=== PATIENT | male | born 1960 | race Asian ===

== ENCOUNTER 2021-07-13 17:12 | Outpatient (CLI) | payer BC, OTHER, SELFPAY ==
--- NOTE | ~2021-07-13 | US_ITS ---
EXAMINATION: US renal BI DATE: 07/13/2021 17:33 INDICATION: Unspecified abdominal pain. TECHNIQUE: Multiple ultrasound grayscale images of the kidneys were obtained. COMPARISON: Ultrasound 03/20/2018 FINDINGS: The right kidney measures 11.3 x 6.2 x 6.0 cm. The left kidney measures 10.2 x 5.7 x 5.2 cm. The kidn eys demonstrate normal parenchymal echogenicity. There is no hydronephrosis. The bladder is normal. IMPRESSION: 1. Normal kidneys. No hydronephrosis. Reviewed, dictated and finalized at location A.
== END 2021-07-13 17:13 | disposition home or self-care (01) ==
LOC: ANHIMG 17:14
PROVIDERS: PCP Internal Medicine; Visit Provider Internal Medicine
DX: R10.9 Unspecified abdominal pain (principal)
CPT/HCPCS: 76775

== ENCOUNTER 2021-09-05 08:35 | Outpatient (CLI) | payer BC, OTHER, SELFPAY ==
--- NOTE | ~2021-09-05 | XR_ITS ---
EXAMINATION: [id number] INDICATION: Bilateral rib pain after fall TECHNIQUE: A frontal view of the chest and 3 views of the bilateral ribs were obtained. COMPARISON: None. FINDINGS: There are questionable nondisplaced fractures of the anterior right ninth and 10th ribs. No displaced rib fracture is identified. The lungs are free of acute opacities. There is no pleural eff usion or pneumothorax. The cardiomediastinal silhouette is normal. IMPRESSION: 1. Possible nondisplaced anterior fractures of the right ninth and 10th ribs. Reviewed, dictated and finalized at location A.
== END 2021-09-05 08:36 | disposition home or self-care (01) ==
LOC: ANHIMG 08:40
PROVIDERS: PCP Internal Medicine; Visit Provider Internal Medicine
DX: R07.81 Pleurodynia (principal)
CPT/HCPCS: 71111

== ENCOUNTER 2021-09-27 07:30 | Outpatient (CLI) | payer BC, OTHER, SELFPAY ==
--- NOTE | 2021-09-27 07:56 | ECHO_ITS ---
Patient Info Name: Gilbert Dhillon Age: 61 years : 1960 Gender: Male Ht: 66 in Wt: 162 lbs BSA: 1.86 m2 HR: 77 bpm BP: 140 / 74 mmHg Heart Rhythm: Sinus Rhythm Exam Date: 09/27/2021 9:14 AM Exam Location: [facility] Patient Status: Outpatient Admit Date: 09/27/2021 Staff Ordering Physician: Hi Baum DO Offset Assistant Press Operator: Kelli Rod RDCS Attending Provider: Hi Baum DO Referring Physician: Sarika GRACE; Exam Type: CA echo doppler color flow Study Info Indications R55 - Syncope and collapse Complete two-dimensional, color flow and Doppler transthoracic echocardiogram is performed. Summary 1. Complete two-dimensional, color flow and Doppler transthoracic echocardiogram is performed. 2. Left ventricular chamber dimension is normal. 3. Left ventricular systolic function is normal, estimated at 65-70%. 4. There is no increased left ventricular wall thickness. 5. Left ventricular septal wall motion is normal. 6. The left ventricular diastolic function is grade I diastolic dysfunction. 7. There is mild tricuspid valve regurgitation. 8. Mild pulmonary hypertension, estimated pulmonary arterial systolic pressure is 42 mmHg. 9. There is mild pulmonic regurgitation. Left Ventricle Left ventricular chamber dimension is normal. Left ventricular systolic function is normal, estimated at 65-70%. There is no increased left ventricular wall thickness. Left ventricular septal wall motion is normal. The left ventricular diastolic function is grade I diastolic dysfunction. Right Ventricle Right ventricular chamber dimension is normal. Right ventricular systolic function is normal. Left Atria Left atrial chamber dimension is normal. Right Atria Right atrial chamber dimension is normal. Atrial Septum Intact interatrial septum visualized by color flow imaging. Aortic Valve The aortic valve is trileaflet. There is mild aortic valve sclerosis. There is no aortic valve stenosis. There is trace aortic valve regurgitation. Pulmonic Valve The pulmonic valve is normal. There is no pulmonic valve stenosis. There is mild pulmonic regurgitation. Mitral Valve The mitral valve has thickened leaflets. There is no mitral valve stenosis. There is trace mitral valve regurgitation. Tricuspid Valve The tricuspid valve leaflets are normal. There is no significant tricuspid valve stenosis. There is mild tricuspid valve regurgitation. Mild pulmonary hypertension, estimated pulmonary arterial systolic pressure is 42 mmHg. Pericardium/Pleural The pericardium appears normal. There is no pericardial effusion. Inferior Vena Cava Dilated inferior vena cava with <50% collapse upon inspiration consistent with elevated right atrial pressure, 15 mmHg. Aorta The aortic root size at the sinus of Valsalva is normal. Left Ventricular Outflow Tract Name Value Normal LVOT 2D LVOT Diameter 2.0 cm LVOT Doppler LVOT Peak Gradient 4 mmHg LVOT Mean Gradient 2 mmHg LVOT VTI 21 cm LV
== END 2021-09-27 07:31 | disposition home or self-care (01) ==
PROVIDERS: PCP Internal Medicine; Visit Provider Internal Medicine
DX: R55 Syncope and collapse (principal); I07.1 Rheumatic tricuspid insufficiency; I27.20 Pulmonary hypertension, unspecified
CPT/HCPCS: 93225; 93226; 93306

== ENCOUNTER 2022-01-07 10:17 | Emergency (ER) | payer BC, OTHER, SELFPAY ==
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
[2022-01-07 10:27] VITALS: BP 158/82; PULSE 77; RESP 18; TEMP 36.6; O2SAT 100
== END 2022-01-07 10:41 | disposition home or self-care (01) ==
PROVIDERS: Emergency Provider Nurse Practitioner Family; PCP Internal Medicine
DX: K08.89 Other specified disorders of teeth and supporting structures (principal); I10 Essential (primary) hypertension; E03.9 Hypothyroidism, unspecified; G47.30 Sleep apnea, unspecified; E11.9 Type 2 diabetes mellitus without complications; Z79.82 Long term (current) use of aspirin
CPT/HCPCS: 99213; G0463

== ENCOUNTER 2022-02-01 08:06 | Outpatient (CLI) | payer BC, OTHER, SELFPAY ==
--- NOTE | ~2022-02-01 | US_ITS ---
EXAMINATION: US arterial ankle brachial ind DATE: 02/01/2022 08:30 INDICATION: Pallor at the lower extremities. Diabetes and hypercholesterolemia. TECHNIQUE: Segmental pressures and plethysmographic and Doppler waveforms of the brachial and lower e xtremity arteries were obtained. COMPARISON: None. FINDINGS: Right and left brachial artery pressures of 128 mm Hg and 127 mm Hg, respectively, are concordant (no rmal difference <= 30 mmHg). The right ankle-brachial index (JAMIL) is 1.23 (normal >= 0.9-1.0). The right great toe-brachial index (TBI) is 0.73 (normal >= 0.65). Arterial Doppler waveforms are biphasic with brisk systolic upstrokes at both right posterior tibial and dorsalis pedis arteries. The left JAMIL is 1.23. The left TBI is 0.63. Arterial Doppler waveforms are biphasic with brisk systol ic upstrokes at both the left posterior tibial and dorsalis pedis arteries. IMPRESSION: 1. No significant arterial occlusive disease to either lower limb with normal bilateral ABIs and TBIs Reviewed, dictated and finalized at location A. IMPRESSION: 1. No significant arterial occlusive disease to either lower limb with normal b ilateral ABIs and TBIs
== END 2022-02-01 08:07 | disposition home or self-care (01) ==
PROVIDERS: PCP Internal Medicine; Visit Provider Nurse Practitioner
DX: R23.1 Pallor (principal)
CPT/HCPCS: 93922

== ENCOUNTER 2022-02-17 08:03 | Outpatient (CLI) | payer BC, OTHER, SELFPAY ==
--- NOTE | 2022-03-02 22:56 | WPDSLEEPSTUD ---
Sleep Study Date of Study: 02/17/22 Ordering Provider: Yareli Ackerman MD Interpreting Physician: Zakiya Navarro DO Sleep Study Type: CPAP Titration Height: 1.7 m Weight: 75.296 kg Body Mass Index: 25.9 Neck Circumference (inches): 17 Mentor: 10 Reason for Sleep Study Previously diagnosed BOGDAN. Current has CPAP but difficult to tolerate. Sleep History The patient is a 61-year-old male with hypertension, hyperlipidemia, hypothyroidism, diabetes, Sjogren's syndrome, Raynaud's, and BOGDAN on CPAP that had a sleep study ordered by his spray maker. The patient rarely awakens from sleep short of breath. He denies awakening at night with heartburn, belching or. He occasionally snores loud enough others complaint. He rarely has trouble sleeping when he has a cold. He denies waking gasping for air the night. He occasionally has breathing problems at night observed by himself or others. He rarely sweats excessively at night. He rarely has heart palpitations or irregular heartbeats during the night. He rarely falls asleep during the day but never while driving. He occasionally has trouble at school or work due to sleepiness. He denies sleep paralysis and cataplexy. He occasionally experiences vivid dream like scenes upon awakening or asleep. He denies having nightmares. He occasionally remembers his dreams. He occasionally has thoughts racing through his mind. He rarely feels sad, depressed or anxious. He denies having muscular tension. He denies noticing parts of his body jerks. He denies taking during night. He denies having crawling aching feeling in his legs. He rarely has leg pain during the night. He rarely grinds his teeth while sleep and never awakens with morning jaw pain. He is occasionally bothered by pain during the day rarely awakened by pain during the. He denies waking feeling stiff in the. He denies waking with sore or achy muscles. He denies waking up with pain in the neck spine and other joints. He goes to bed at 9:00 p.m. on both weekdays and weekends. He takes about a minute to fall asleep. He wakes up twice throughout the night. When he awakens, he tries to fall back asleep. If he can't, he will read. If it is past 2:00 a.m., he will either stay up or go to work. He wakes up between 3-4 a.m. on the weekdays and between 4-5 am on the weekends. He typically gets 5-6 hours of sleep per night. He does not stay in bed after waking up morning. He currently lives with his . He does not consume any caffeinated beverages within 2 hours of bedtime. He does not engage in physical exercise bedtime. He will watch television before falling asleep. He does not take naps in the afternoon or the evening. He drinks 24 oz of caffeinated soda per day. He denies tobacco, alcohol and recreational drug use. [facility] Past Medical History Medical History Cyst Essential hypertension Hyperlipidemia Hypersomnolence disorder, persistent Hypothyroidism (acquired) BOGDAN on CPAP Skin lesions Type 2 diabetes mellitus with hyperglycemia Family History Family History Mother Family history of osteoporosis Hypertension Family history of Alzheimer's disease Family history of diabetes mellitus in first degree relative Cerebrovascular accident Patient's mother is Father Hypertension Family history of congestive heart failure Sibling Patient's sister is in good health Social History Social History Smoking status: Never smoker Second hand tobacco smoke exposure: No Alcohol intake: never Substance use: never Substance use type: does not use Medications Home Medications Medication Instructions Recorded Confirmed Type blood sugar diagnostic #10 each 12/27/19 01/11/22 History pen needle, diabetic 31 gauge x #500
[2022-03-03 12:52] VITALS: BMI 25.9
== END 2022-02-18 05:40 | disposition home or self-care (01) ==
LOC: ANHCSM 08:51
PROVIDERS: PCP Internal Medicine; Visit Provider Internal Medicine Critical Care Medicine
DX: G47.19 Other hypersomnia (principal); G47.33 Obstructive sleep apnea (adult) (pediatric)
CPT/HCPCS: 95811

== ENCOUNTER 2022-09-13 00:22 | Day surgery (SDC) | payer BC, OTHER, SELFPAY ==
[2022-09-04 08:35] VITALS: BMI 28.5
--- NOTE | 2022-09-12 17:06 | PM.HPGS ---
History of Present Illness History of Present Illness Consent: Risks, benefits, and alternatives have been discussed and questions answered. Patient agrees to proceed with procedure. Chief complaint: GERD Narrative: Gilbert Dhillon is a 62 year old male referred for investigation of dysphagia. He often feels as though it is difficult to swallow. Even when he does a dry swallow it is gives a sensation that there is something in the way. On a few occasions he has had actual food get caught in his lower chest. He has noticed also discomfort in the right side of his neck that goes up towards his ear. He denies heartburn. 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 BOGDAN on CPAP Osteopenia Primary osteoarthritis of both knees Sjogrens syndrome Skin lesions Testicular hypofunction Type 2 diabetes mellitus with hyperglycemia Surgical History Surgical History History of thyroidectomy with radioactive iodine Family History Family History Mother Family history of osteoporosis Hypertension Family history of Alzheimer's disease Family history of diabetes mellitus in first degree relative Cerebrovascular accident Patient's mother is Father Hypertension Family history of congestive heart failure Sibling Patient's sister is in good health Social History Social History Smoking status: Never smoker Second hand tobacco smoke exposure: No Alcohol intake: never Substance use: never Substance use type: does not use Living arrangements: with family Spiritual care concerns: No Meds Home Medications and Allergies Home Medications Medication Instructions Recorded Confirmed Type blood sugar diagnostic (Accu-Chek #10 ea 12/27/19 09/04/22 History Dee Plus test strips) pen needle, diabetic 31 gauge x #500 ea 12/10/20 09/04/22 Rx 5/16 Dexcom G6 Sensor (blood-glucose #3 ea 02/10/21 09/04/22 Rx sensor) ibuprofen 600 mg tablet 600 mg PO Q6H PRN Pain 07/04/21 09/13/22 History Dexcom G6 Transmitter #1 ea 11/15/21 09/04/22 Rx (blood-glucose transmitter) losartan 100 mg tablet See Rx Instructions .Route 03/13/22 09/13/22 Rx .COMPLEX #90 tabs Jardiance 25 mg tablet 25 mg PO QAM 90 days #90 tabs 04/03/22 09/13/22 Rx (empagliflozin) dextroamphetamine sulfate 10 mg 10 mg PO DAILY #30 tabs 04/21/22 09/13/22 Rx tablet modafinil 200 mg tablet 200 mg PO QAM 1 month #30 tabs 04/21/22 09/13/22 Rx sildenafil (pulm.hypertension) 20 20 mg PO TID 04/21/22 09/13/22 History mg tablet hydrochlorothiazide 12.5 mg tablet 12.5 mg PO DAILY #90 tabs 05/16/22 09/13/22 Rx metformin 500 mg tablet 500 mg PO BID 90 days #180 tabs 05/22/22 09/13/22 Rx aspirin 81 mg capsule 81 mg PO DAILY 06/08/22 09/13/22 History insulin aspart U-100 100 unit/mL 5 - 7 unit subcut TIDWMEAL 06/08/22 09/13/22 History (3 mL) subcutaneous pen (Novolog Flexpen U-100 Insulin aspart) levothyroxine 125 mcg tablet See Rx Instructions .Route 07/19/22 09/13/22 Rx .COMPLEX #90 tabs eszopiclone 3 mg tablet 3 mg PO QHS #90 tabs 07/26/22 09/13/22 Rx testosterone 20.25 mg/1.25 gram 1 pump topical DAILY #150 grams 07/26/22 09/13/22 Rx (1.62 %) transdermal gel pump tirzepatide 5 mg/0.5 mL 5 mg (0.5 mL) subcut WEEKLY 84 08/02/22 09/13/22
[2022-09-13 07:44] VITALS: BP 116/72; PULSE 72; RESP 18; TEMP 36.5; O2SAT 98
[2022-09-13 07:44] LABS: Glucose Point of Care 104 mg/dl (65-105)
[2022-09-13] MEDS: LACTATED RINGERS 1,000 ML 150 ML IV CONT (07:52)
--- NOTE | 2022-09-13 07:59 | WPDANESEPPF ---
Anes - Initial Pre Proc Eval Procedure: Operation Date: 09/13/22 09:00 Proposed Procedures p Esophagogastroduodenoscopy - Bertrand Gutiérrez MD Date/Time: 09/13/22 07:59 Surgeon: Bertrand Gutiérrez MD Pre Op Diagnosis: GERD Patient Data Age: 62 Gender: M Height: 1.65 m Weight: 81.6 kg Last Vital Signs Temp 97.7 F 09/13/22 07:44 Pulse 72 09/13/22 07:44 Resp 18 09/13/22 07:44 BP 116/72 09/13/22 07:44 Pulse Ox 98 09/13/22 07:44 O2 Del Method Room Air 09/13/22 07:44 Allergies Allergy/AdvReac Type Severity Reaction Status Date / Time No Known Allergies Allergy Verified 09/13/22 07:43 Home Medications Medication Instructions Recorded Confirmed Type blood sugar diagnostic (Accu-Chek #10 ea 12/27/19 09/04/22 History Dee Plus test strips) pen needle, diabetic 31 gauge x #500 ea 12/10/20 09/04/22 Rx 5/16 Dexcom G6 Sensor (blood-glucose #3 ea 02/10/21 09/04/22 Rx sensor) ibuprofen 600 mg tablet 600 mg PO Q6H PRN Pain 07/04/21 09/13/22 History Dexcom G6 Transmitter #1 ea 11/15/21 09/04/22 Rx (blood-glucose transmitter) losartan 100 mg tablet See Rx Instructions .Route 03/13/22 09/13/22 Rx .COMPLEX #90 tabs Jardiance 25 mg tablet 25 mg PO QAM 90 days #90 tabs 04/03/22 09/13/22 Rx (empagliflozin) dextroamphetamine sulfate 10 mg 10 mg PO DAILY #30 tabs 04/21/22 09/13/22 Rx tablet modafinil 200 mg tablet 200 mg PO QAM 1 month #30 tabs 04/21/22 09/13/22 Rx sildenafil (pulm.hypertension) 20 20 mg PO TID 04/21/22 09/13/22 History mg tablet hydrochlorothiazide 12.5 mg tablet 12.5 mg PO DAILY #90 tabs 05/16/22 09/13/22 Rx metformin 500 mg tablet 500 mg PO BID 90 days #180 tabs 05/22/22 09/13/22 Rx aspirin 81 mg capsule 81 mg PO DAILY 06/08/22 09/13/22 History insulin aspart U-100 100 unit/mL 5 - 7 unit subcut TIDWMEAL 06/08/22 09/13/22 History (3 mL) subcutaneous pen (Novolog Flexpen U-100 Insulin aspart) levothyroxine 125 mcg tablet See Rx Instructions .Route 07/19/22 09/13/22 Rx .COMPLEX #90 tabs eszopiclone 3 mg tablet 3 mg PO QHS #90 tabs 07/26/22 09/13/22 Rx testosterone 20.25 mg/1.25 gram 1 pump topical DAILY #150 grams 07/26/22 09/13/22 Rx (1.62 %) transdermal gel pump tirzepatide 5 mg/0.5 mL 5 mg (0.5 mL) subcut WEEKLY 84 08/02/22 09/13/22 Rx subcutaneous pen injector days #6 mL (Mounjaro) atorvastatin 40 mg tablet 40 mg PO QPM #90 tabs 08/30/22 09/13/22 Rx insulin degludec 200 unit/mL (3 18 unit (0.09 mL) subcut QAM 90 08/31/22 09/13/22 Rx mL) subcutaneous pen (Tresiba days #9 mL FlexTouch U-200 insulin) Laboratory Tests 09/13/22 07:40 POC Capillary Glucose 104 mg/dl mg/dl (65-105) Patient hx anesthesia problems: none Family hx anesthesia problems: none Results Review: All pre-operative results and documents have been reviewed as part of the pre-operative evaluation. 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
[2022-09-13 09:20] VITALS: BP 94/64; PULSE 75; RESP 14; O2SAT 96
[2022-09-13 09:30] VITALS: BP 116/74; PULSE 81; RESP 23; O2SAT 98
--- NOTE | 2022-09-13 09:37 | SUR.PHASEII ---
Patient did not want to be poked for our glucose bingo checker, pt has a implanted reader and preferred to use that. blood sugar was 92
[2022-09-13 09:40] VITALS: BP 123/71; PULSE 75; RESP 14; O2SAT 98
[2022-09-13] MEDS: BENZOCAINE (*SP) 60 ML SPRAY CAN (HURRICAINE) 1 SPRAY MUCOUS MEM (11:34)
== END 2022-09-13 09:48 | disposition home or self-care (01) ==
PROVIDERS: PCP Internal Medicine; Visit Provider Internal Medicine Gastroenterology
PROC: 0DJ08ZZ Inspection of Upper Intestinal Tract, Via Natural or Artificial Opening Endoscopic (ICD-10-PCS; CPT 43235; principal; 2022-09-13 09:00)
DX: K21.00 Gastro-esophageal reflux disease with esophagitis, without bleeding (principal); I10 Essential (primary) hypertension; E11.9 Type 2 diabetes mellitus without complications; E89.0 Postprocedural hypothyroidism; K21.9 Gastro-esophageal reflux disease without esophagitis; E78.5 Hyperlipidemia, unspecified; G47.33 Obstructive sleep apnea (adult) (pediatric); M35.00 Sjogren syndrome, unspecified; Z79.84 Long term (current) use of oral hypoglycemic drugs; Z79.82 Long term (current) use of aspirin; Z79.4 Long term (current) use of insulin; Z79.899 Other long term (current) drug therapy
CPT/HCPCS: 43239; 82948; 87081; 88305; J2704; J7120

== ENCOUNTER 2023-05-12 16:48 | Emergency (ER) | payer BC, OTHER, SELFPAY ==
--- NOTE | ~2023-05-12 | XR_ITS ---
EXAMINATION: XR abdomen obstructive series DATE: 05/12/2023 17:17 INDICATION: Diarrhea and bloating TECHNIQUE: Frontal supine and upright views of the abdomen were obtained. COMPARISON: None. FINDINGS: Moderate amount of stool scattered throughout the colon. No dilated gas-filled loops of bowel to sugg est obstruction. No free intraperitoneal gas. Lung bases are clear. Mild lumbar dextrocurvature. IMPRESSION: 1. No free intraperitoneal gas or dilated gas-filled loops of bowel to suggest obstruction. Reviewed, dictated and finalized at location A.
--- NOTE | 2023-05-12 16:52 | ED.NAVMDI ---
HPI - Nausea/Vomiting/Diarrhea General Chief complaint: Nausea/Vomiting/Diarrhea Stated complaint: Diarrhea Time Seen by Provider: 05/12/23 16:51 Source: patient Mode of arrival: ambulatory Limitations: no limitations History of Present Illness HPI Narrative: Gilbert is a 63-year-old male patient presenting to clinic today with complaints of diarrhea x6 days. He reports he started taking Celebrex and Rosuvastatin around the same time the diarrhea started. Has been having 4-5 stools per day. He reports he is feeling a fullness in his lower abdomen and feeling as though when he is having bowel movements he is not fully empty. Has tightness/discomfort to the lower abdomen. No fever, chills, body aches, GERD symptoms, urinary symptoms, or blood in his stool. Denies history of diverticulitis, irritable bowel syndrome, Crohns, or colitis. No abdominal surgical history. Related Data Home Medications Medication Instructions Recorded Confirmed sildenafil (pulm.hypertension) 20 20 mg PO TID 04/21/22 05/12/23 mg tablet aspirin 81 mg capsule 81 mg PO DAILY 06/08/22 05/12/23 insulin aspart U-100 100 unit/mL 5 unit subcut TIDWMEAL 12/27/22 05/12/23 (3 mL) subcutaneous pen (Novolog FlexPen U-100 Insulin aspart) atorvastatin 40 mg tablet 40 mg PO DAILY 05/12/23 05/12/23 blood-glucose sensor (Dexcom G7 05/12/23 05/12/23 Sensor device) Allergies Allergy/AdvReac Type Severity Reaction Status Date / Time No Known Allergies Allergy Verified 05/12/23 16:51 Review of Systems Review of Systems: Pertinent positives per HPI. Patient denies any fever, chills, rash, headache, visual changes, dizziness, cough, runny nose, sore throat, shortness of breath, chest pain, palpitations, nausea, vomiting, constipation, abdominal pain, or any urinary issues. 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 BOGDAN on CPAP Osteopenia Primary osteoarthritis of both knees Sjogrens syndrome Skin lesions Testicular hypofunction Type 2 diabetes mellitus with hyperglycemia Surgical History Surgical History History of thyroidectomy with radioactive iodine Family History Family History Mother Family history of osteoporosis Hypertension Family history of Alzheimer's disease Family history of diabetes mellitus in first degree relative Cerebrovascular accident Patient's mother is Father Hypertension Family history of congestive heart failure Sibling Patient's sister is in good health Social History Social History Smoking status: Never smoker Second hand tobacco smoke exposure: No Alcohol intake: never Substance use: never Substance use type: does not use Lack of Transportation: No Lack of Food: Never True Current Housing: I Have Housing Concerned About Future Housing: No Difficulty Paying Gas/Electric Bills: No Difficulty Paying for Meds: No Currently Unemployed: No Education: Associate Degree Difficulty w/ Childcare or Family Care: No Living arrangements: with family Spiritual care concerns: No Comments At the time of my signature, I reviewed and agree with the nursing past medical, surgical, social, and family history. There is no relevant family history pertinent to the patient complaint. Exam Narrative: General: Well-developed, well nourished, in no apparent distress.
[2023-05-12 17:00] VITALS: BP 147/65; PULSE 81; RESP 16; TEMP 36.4; O2SAT 100
== END 2023-05-12 17:26 | disposition home or self-care (01) ==
PROVIDERS: Emergency Provider Nurse Practitioner Family; PCP Nurse Practitioner
DX: R19.7 Diarrhea, unspecified (principal); I10 Essential (primary) hypertension; K21.9 Gastro-esophageal reflux disease without esophagitis; G47.33 Obstructive sleep apnea (adult) (pediatric); M85.80 Other specified disorders of bone density and structure, unspecified site; M35.00 Sjogren syndrome, unspecified; E11.9 Type 2 diabetes mellitus without complications; E03.9 Hypothyroidism, unspecified; E05.00 Thyrotoxicosis with diffuse goiter without thyrotoxic crisis or storm; Z79.82 Long term (current) use of aspirin; Z79.4 Long term (current) use of insulin
CPT/HCPCS: 74019; 99213; G0463

== ENCOUNTER 2023-07-26 14:23 | Outpatient (NON) | payer BC, OTHER, SELFPAY | END 2023-07-26 14:24 | disposition home or self-care (01) | LOC: ANHLAB 07-27 14:25 | PROVIDERS: PCP Nurse Practitioner Family; Visit Provider Nurse Practitioner | DX: D48.5 Neoplasm of uncertain behavior of skin (principal) | CPT/HCPCS: 88305 ==

== ENCOUNTER 2023-12-29 08:37 | Outpatient (CLI) | payer BC, OTHER, SELFPAY ==
[2023-12-29 09:12] LABS: Basophils Percent Auto 0.3 % (0.2-1.2); Eosinophils Absolute Auto 0.3 K/mm3 (0-0.3); Eosinophils Percent Auto 5.3 % (0-4.4); Hematocrit 46.3 % (42.0-52.0); Immature Granulocyte Absolute 0.03 K/mm3 (0.00-0.031); Immature Granulocyte Percent A 0.5 % (0-0.5); Lymphocytes Absolute Auto 1.93 K/mm3 (0.9-3.2); Lymphocytes Percent Auto 33.1 % (18.3-44.2); Mean Corpuscular HGB Conc 32.4 g/dl (32-36); Mean Corpuscular Hemoglobin 30.5 pg (26-34); Mean Corpuscular Volume 94.3 fl (80-100); Mean Platelet Volume 8.7 fl (7.4-10.4); Monocytes Absolute Auto 0.5 K/mm3 (0.1-0.6); Monocytes Percent Auto 8.6 % (2.6-8.5); Neutrophils Percent Auto 52.2 % (45.5-73.1); Platelet Count Result 219 k/mm3 (150-375); Red Blood Count 4.91 M/mm3 (4.6-6.20); Red Cell Distribution Width 12.4 % (11.5-14.5); White Blood Count 5.8 K/mm3 (4.5-10.0)
[2023-12-29 09:22] LABS: Alanine Aminotransferase 31 U/L (6-50); Albumin Level 4.3 g/dL (3.5-5.1); Alkaline Phosphatase 60 U/L (38-126); Anion Gap 5 mmol/L (8-16); Aspartate Amino Transferase 36 U/L (17-59); Bilirubin,Total 0.7 mg/dL (0.2-1.3); Blood Urea Nitrogen 21 mg/dL (9-20); Calcium 9.1 mg/dL (8.4-10.2); Carbon Dioxide 32 mmol/L (22-30); Chloride 100 mmol/L (98-107); Cholesterol 138 mg/dL (0-200); Estimated Glomerular Filt Rate > 60; Glucose 78 mg/dL (65-110); HDL Direct 44 mg/dL; Potassium 4.1 mmol/L (3.4-5.0); Sodium 137 mmol/L (137-145); Triglycerides 99 mg/dL (<150)
[2023-12-29 09:25] LABS: Iron 140 ug/dL (49-181)
[2023-12-29 09:34] LABS: LDL Cholesterol Direct 76 mg/dL
[2023-12-29 09:35] LABS: Percent Iron Saturation 51 % (20-50)
[2023-12-29 09:52] LABS: Prostate Specific Antigen 1.3 ng/mL (< OR = 4.0)
== END 2023-12-29 08:38 | disposition home or self-care (01) ==
LOC: ANHLAB 08:40
PROVIDERS: PCP Nurse Practitioner Family; Visit Provider Nurse Practitioner Family
DX: D64.9 Anemia, unspecified (principal); E78.5 Hyperlipidemia, unspecified; I10 Essential (primary) hypertension; E11.42 Type 2 diabetes mellitus with diabetic polyneuropathy; R53.82 Chronic fatigue, unspecified; Z12.11 Encounter for screening for malignant neoplasm of colon; G47.00 Insomnia, unspecified
CPT/HCPCS: 36415; 80053; 80061; 82728; 83540; 83550; 84153; 85025; G0103

== ENCOUNTER 2024-02-13 17:04 | Emergency (ER) | payer BC, OTHER, SELFPAY ==
[2024-02-13 17:16] VITALS: BP 152/64; PULSE 65; RESP 16; TEMP 36.4; O2SAT 100
--- NOTE | 2024-02-13 17:55 | ED.DENTAL ---
HPI - Dental/Oral General Chief complaint: Dental/Oral Stated complaint: dental pain Time Seen by Provider: 02/13/24 17:47 Source: patient and RN notes reviewed Mode of arrival: ambulatory Limitations: no limitations History of Present Illness HPI Narrative: Patient presents today complaining of right upper dental pain since yesterday. Currently rates his pain 5/10 and has been taking ibuprofen with mild relief. States this affected tooth already has a crown on it and he has an appointment with his dentist in 10 days. Related Data Home Medications Medication Instructions Recorded Confirmed aspirin 81 mg capsule 81 mg PO DAILY 06/08/22 02/13/24 blood-glucose sensor (Dexcom G7 05/12/23 12/04/23 Sensor device) cholecalciferol (vitamin D3) 25 25 mcg PO DAILY 09/12/23 02/13/24 mcg (1,000 unit) tablet multivitamin (Daily Multi-Vitamin 1 tablet PO DAILY 09/12/23 02/13/24 tablet) vitamin B complex (B 1 tablet PO DAILY 09/12/23 02/13/24 Complex-Vitamin B12 tablet) calcium carbonate 600 mg calcium 600 mg PO DAILY 09/27/23 02/13/24 (1,500 mg) tablet (Calcium) tamsulosin 0.4 mg capsule (Flomax) 0.4 mg PO DAILY 09/27/23 02/13/24 Allergies Allergy/AdvReac Type Severity Reaction Status Date / Time No Known Allergies Allergy Verified 02/13/24 17:22 Review of Systems Review of Systems: CONSTITUTIONAL: Denies body aches, fever, chills, or sweats. EYES: Denies visual changes, redness, or discharge. ENT: Denies rhinorrhea, congestion, sore throat, or otalgia.+ tooth pain CARDIOVASCULAR: Denies chest pain, palpitations, or edema. RESPIRATORY: Denies cough or dyspnea. GASTROINTESTINAL: Denies abdominal pain, nausea, vomiting, or diarrhea. GENITOURINARY: Denies dysuria or hematuria. SKIN: Denies rash, itching, or wounds. MUSCULOSKELETAL: Denies back pain, joint pain, or myalgia. NEUROLOGIC: Denies headache, numbness, tingling, or weakness. PSYCH: Denies depression or anxiety. 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 BOGDAN on CPAP Osteopenia Primary osteoarthritis of both knees Sjogrens syndrome Skin lesions Testicular hypofunction Type 2 diabetes mellitus with hyperglycemia Surgical History Surgical History History of thyroidectomy with radioactive iodine Family History Family History Mother Family history of osteoporosis Hypertension Family history of Alzheimer's disease Family history of diabetes mellitus in first degree relative Cerebrovascular accident Patient's mother is Father Hypertension Family history of congestive heart failure Sibling Patient's sister is in good health Social History Social History Smoking status: Never smoker Second hand tobacco smoke exposure: No Alcohol intake: never Substance use: never Substance use type: does not use Lack of Transportation: No Lack of Food: Never True Current Housing: I Have Housing Concerned About Future Housing: No Difficulty Paying Gas/Electric Bills: No Difficulty Paying for Meds: No Currently Unemployed: No Education: Associate Degree Difficulty w/ Childcare or Family Care: No Living arrangements: with family Spiritual care concerns: No Comments At time of signature, I have reviewed and agree with nursing past medical, surgical, social and family history unless otherwise noted. Pl
== END 2024-02-13 18:04 | disposition home or self-care (01) ==
PROVIDERS: Emergency Provider Nurse Practitioner; PCP Nurse Practitioner Family
DX: K08.89 Other specified disorders of teeth and supporting structures (principal); I10 Essential (primary) hypertension; K21.9 Gastro-esophageal reflux disease without esophagitis; E05.00 Thyrotoxicosis with diffuse goiter without thyrotoxic crisis or storm; G47.33 Obstructive sleep apnea (adult) (pediatric); M85.80 Other specified disorders of bone density and structure, unspecified site; M17.0 Bilateral primary osteoarthritis of knee; M35.00 Sjogren syndrome, unspecified; E11.9 Type 2 diabetes mellitus without complications; E89.1 Postprocedural hypoinsulinemia; Z79.82 Long term (current) use of aspirin
CPT/HCPCS: 99213; G0463

== ENCOUNTER 2024-05-09 15:01 | Outpatient (CLI) | payer BC, MEDICARE, OTHER, SELFPAY ==
--- NOTE | ~2024-05-09 | XR_ITS ---
XR knee LT min 4V Ordering provider: Melani Jara APRN History: . M25.562 - Pain in left knee FOR SEVERAL MONTHS, NKI . Comparison: None. FINDINGS: BONES: No acute fracture or dislocation. JOINT SPACES: Normal. SOFT TISSUES: Normal. IMPRESSION: No acute osseous abnormality left knee. Reviewed, dictated and finalized at location A.
== END 2024-05-09 15:02 | disposition home or self-care (01) ==
LOC: ANHIMG 15:07
PROVIDERS: PCP Nurse Practitioner Family; Visit Provider Nurse Practitioner Family
DX: M25.562 Pain in left knee (principal)
CPT/HCPCS: 73564

== ENCOUNTER 2024-12-29 16:12 | Outpatient (CLI) | payer BC, OTHER, SELFPAY ==
--- NOTE | ~2024-12-29 | CT_ITS ---
EXAMINATION: CT brain wo con DATE: 12/29/2024 16:39 INDICATION: Amnesia TECHNIQUE: Computed tomography (CT) of the head was performed without intravenous contrast. Sagittal and coronal reconstructions were performed. The mA was adjusted according to patient size. Iterative reconstruction technique was employed. The dose-length product was 605.33 mGy-cm. COMPARISON: None FINDINGS: No acute intracranial hemorrhage, acute infarction or abnormal extra axial fluid collection. Minimal scattered cerebral white matter and pontine hypoattenuation consistent with chronic small vessel isch emic disease. Ventricles are normal and symmetric. No mass/mass effect. The orbits, paranasal sinuses and mastoid air cells are normal. IMPRESSION: 1. Mild scattered white matter and pontine hypoattenuation consistent with chronic small vessel ische yobani disease. No acute intracranial process. Reviewed, dictated and finalized at location A. RN IMPRESSION: 1. Mild scattered white matter and pontine hypoattenuation consistent with lime supervisor terrence small vessel ischemic disease. No acute intracranial process.
--- OUTSIDE RECORDS SUMMARY | 2024-12-29 18:23 | XMS_ITS | Referral Summary ---
Author Organization [facility] Address [address] [place] [id number] Care Team Providers Care Digital Media Strategist Name Role Phone Mason Lewis MD Primary Care Provider [phone] Allergies No known active allergies Medications multivitamin tablet tablet Take according to tebd-cus-ryiazr r package directions 0 0 8 Active aspirin (ENTERIC COATED ASPIRIN) 81 mg tablet Take one by mouth one time per day 0 0 8 Active semaglutide (OZEMPIC SUBQ) Inject 1 mg under the skin once a week Sunday Active zolpidem CR (AMBIEN CR) 6.25 mg CR tabletIndicatio ns:Insomnia Take 1 tablet (6.25 mg total) by mouth nightly as needed for sleep Active insulin degludec (TRESIBA U-100 INSULIN SUBQ) Inject 20 Units under the skin daily Active modafiniL (PROVIGIL) 200 mg tablet Take 1 tablet (200 mg total) by mouth daily Active hydroCHLOROthia zide (HYDRODIURIL) 12.5 mg tablet Take 1 tablet (12.5 mg total) by mouth daily Active empagliflozin (JARDIANCE) 25 mg tabletIndicatio ns:type 2 diabetes mellitus 1 tablet (25 mg total) daily Active insulin aspart U-100 (NovoLOG) 100 unit/mL injection Inject under the skin 3 (three) times a day before meals 5-15 units Active cyanocobalamin, vitamin B-12, (VITAMIN B-12 ORAL) Take by mouth Active NIACIN ORAL Take by mouth Acti ve rosuvastatin (CRESTOR) 20 mg tablet Take 1 tablet (20 mg total) by mouth daily 3 Active tamsulosin (FLOMAX) 0.4 mg extended release capsule Take 1 capsule (0.4 mg total) by mouth nightly 4 Active levothyroxine sodium (TIROSINT) 137 mcg capsule Take 1 capsule (137 mcg total) by mouth director of residential services before breakfast 4 Active doxepin 6 mg tablet Take 1 tablet by mouth daily as needed 4 Active Active Problems Problem Noted Date Diagnosed Date Syncope and collapse 10/11/2021 Atypical chest pain 08/12/2020 Dyspnea on exertion 08/12/2020 Other fatigue 08/12/2020 Family history of premature coronary artery dise ase 08/12/2020 BOGDAN (obstructive sleep apnea) 08/12/2020 Hyperlipidemia associated with type 2 diabetes m ellitus 08/12/2020 Memory impairment 09/29/2015 Pure hypercholesterolemia 03/28/2014 Overview (02/15/2017): PURE HYPERCHOLESTEROLEM Testicular hypofunction 03/28/2014 Overview (02/15/2017): TESTICULAR HYPOFUNC NEC Postablative hypothyroidism 03/28/2014 Overview (02/15/2017): POSTABLAT HYPOTHYR NEC Hypertension associated with diabetes 03/28/2014 Overview (02/15/2017): HYPERTENSION NOS Type 2 diabetes mellitus 03/28/2014 Overview (02/15/2017): DMII WO CMP UNCNTRLD Osteopenia 08/19/2012 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 Monthly or less 03/31/2021 Average Number of Drinks Not on file 021 Frequency of Binge Drinking Not on file 03/13 Sex and Gender Information Value Date Recorded Sex Assigned at Not on file Legal Sex Male 12:47 AM [facility] Gender Identity Not on file Sexual Orientation Not on file Last Filed Vital Signs Vital Sign Reading Time Taken Comments Blood Pressure 128/64 02/22/2024 11:18 AM CDT Pulse 65 02/22/2024 11:18 AM CDT Temperature 36.8 C (98.3 F) 09/17/2020 7:03 AM [facility] Respiratory Rate 16 09/17/2020 7:03 AM [facility] Oxygen Saturation 98% 02/22/2024 11:18 AM CDT Inhaled Oxygen Concentration - - Weight 81.2 kg (179 lb) 02/22/2024 11:18 AM CDT Height 170.2 cm (5' 7 ) 02/22/2024 11:18 AM CDT Body Mass Index 28.04 02/22/2024 11:18 AM CDT Plan of Treatment Not on file Procedures Procedure Name Priority Date/Time Associated Diagnosis Comments POCT LIPID PANEL Routine 02/22/2024 11:1 4 AM CDT Hyperlipidemia associated with type 2 diabetes mellitus (HCC) EGFR Routine 09/08/2020 7:22 AM CDT Atypical chest pain Encounter for pre-operative laboratory testing from Last 3 Months or Most Recently Relevant to Health Maintenance Results * POCT lipid panel (02/22/2024 11:14 AM CDT) Cholesterol, POC 130 mg/dL HDL, POC 48 mg/dL Triglycerides, POC 101 mg/dL LDL Cholesterol POC 62 mg/dL Chol/HDL Ratio, POC 1.3 Non-HDL Cholesterol, POC 82 mg/dL Cholesterol Total, POC 130 mg/dL Capillary blood 02/22/2024 1 1:14 AM CDT us Aurelio Figueroa MD POINT OF CARE TEST ORDERA BLES Final Result * eGFR (09/08/2020 7:22 AM CDT) eGFR 106 mL/min/1.7 3 m2 [facility] Comment: Interpretive Data Reference Interval Normal >/= 90 mL/min/1.73m2 Mildly decreased* 60 - 89 mL/min/1.73m2 Mildly to moderately decreased 45 - 59 mL/min/1.73m2 Moderately to severely decreased 30 - 44 mL/min/1.73m2 Severely decreased 15 - 29 mL/min/1.73m2 Kidney Failure < 15 mL/min/1.73m2 *Relative to young adult level If -Emirati multiply value by 1.16. Estimated glomerular filtration rate is determined by the CKD-EPI equation recommended by the National Kidney Foundation (KDIGO 2012 Clinical Practice Guideline for the Evaluation and Management of Chronic Kidney Disease. Kidney Intnl Suppl Nov 2012;3:1). The CKD-EPI equation should not be used for patients with unstable renal function and has not been validated in children and those over 70. Current interpretive data was last reviewed 2016. Blood specimen (specimen) 09/08/2020 7:22 AM CDT 09/08/2020 7:22 AM CDT Aurelio Figueroa MD LAB BLOOD ORDERABLES Olena lovell Result [facility] [id number] [address] Department [place] [address] from Last 3 Months or Most Recently Relevant to Health Maintenance Insurance [employer] [facility] [place] [employer] Care Teams Digital Media Strategist Relationship Specialty Start Date End Date Mason Lewis MD PCP - General Family Practice 02/22/24
--- OUTSIDE RECORDS SUMMARY | 2024-12-29 18:23 | XMS_ITS | Continuity of Care Document ---
Author Name [facility] Organization [facility] Care Team Providers Care Technology Internship Name Role Phone [facility] Unavailable Unavailable Problems Combined list of problems from Department of Defense and Veterans Affairs facilities. It does not include entries that were removed or entered in error. Problem Status Onset Date Problem Type Date of Resolution Comments Source large intestine neoplasm, benign hyperplastic polyp Inactive Condition [facility] hypertension systemic Active Condition DoD male erectile disorder Active Condition [facility] visit for: issue repeat prescription Inactive Condition [facility] other specified viral disease Inactive Condition Written Rx for Arielle 180 1 daily (# 30, 1) for congestion. To also use Tylenol or Motrin for fever aor body aches. Fluids, Rest. [facility] eustachian tube dysfunction Active Condition Pt has no signs of pneumonia or sinusitis at this time. Asked him to return for f/c or concerns. Entex PSE and Robitussin given for symptomatic relief. Asked pt to f/u with Dr Lockwood for diabetes and hypothyroid f/u [facility] Medications Combined list of outpatient medications from Department of Defense and Veterans Affairs facilities.Medications provided include 1) outpatient medications from the last 15 months, and 2) patient-reported medications. Medication Details Route Status Patient Instructions Prescription Expires Prescription Number Last Dispense Date Ordering Provider Order Date Order Qty Source Baqsimi 3 mg nasal powder [1EA] See Instruct ions, # 1 EA, 1 total refill(s ), Hard Stop Ordered 09/24/2025 1.0 Ambul at ory Pharmac y BD Ange 2nd Gen pen needle 32g 4mm [100EA] See Instruct ions, # 100 EA, 3 total refill(s ), Hard Stop Ordered 11/24/2025 100.0 Ambul at ory Pharmac y celecoxib 200 mg capsule 200 mg, Oral, Daily, # 30 EA, 5 total refill(s ), Hard Stop Oral (given by mouth) Complet ed 04/30/2024 30.0 Ambulat ory Pharmac y CRESTOR (BRAND) 20 MG ORAL TAB Do not take with milk, antacids , or iron.Eleazar e or use exactly as directed .Do not take if . 12/12/2024 [id number] 4 [address] [place] [address] [place] [facility] [place] EMPAGLIFLOZ IN 25 MG ORAL TAB Check with your doctor before becoming . Active 01/15/2025 [id number] 4 [address] [place] [address] Eliseo JOSEPH [place] eszopiclone 3 mg tablet 3 mg, See Instruct ions, Oral, Daily, # 30 EA, 1 total refill(s ), Hard Stop Oral (given by mouth) Complet ed 10/15/2023 30.0 Ambulat ory Pharmac y eszopiclone 3 mg tablet 3 mg, Oral, Daily, # 90 EA, 1 total refill(s ), Hard Stop Oral (given by mouth) Ordered 03/11/2025 90.0 Ambul at ory Pharmac y gabapentin 300 mg capsule 300 mg, Oral, every day at bedtime, # 90 EA, 1 total refill(s ), Hard Stop Oral (given by mouth) Ordered 09/12/2025 90.0 Ambul at ory Pharmac y gabapentin 300 mg capsule 300 mg, Oral, Daily, # 90 EA, 1 total refill(s ), Hard Stop Oral (given by mouth) Complet ed 09/11/2024 90.0 Ambulat ory Pharmac y gabapentin 300 mg capsule 300 mg, Oral, # 90 EA, 1 total refill(s ), Hard Stop Oral (given by mouth) Discont inued 09/15/2024 90.0 Ambulat ory Pharmac y HumuLIN N (NPH) KwikPen 100 units/mL [3mL] See Instruct ions, # 15 mL, 1 total refill(s ), Hard Stop Discont inued 01/15/2024 15.0 Ambulat ory Pharmac y hydroCHLORO thiazide 12.5 mg tablet 12.5 mg, Oral, Daily, # 90 EA, 1 total refill(s ), Hard Stop Oral (given by mouth) Complet ed 07/25/2024 90.0 Ambulat ory Pharmac y Insulin Isophane, Human 100U/mL, Injection, 10mL Vial Do not drink alcohol. Take or use exactly as directed .refrige rate 10/18/2024 [id number] 3 [address] [place] [address] Eliseo JOSEPH ([facility] IRX: Tadalafil 20 mg vs Placebo Tablet Oral Take or use exactly as directed .Obtain advice for OTCs.[place] id nitrates . Active 01/03/2025 [id number] 4 [address] [place] [address] Eliseo JOSEPH ([facility] Jardiance 25 mg tablet See dose instruct ions in comments , # 90 EA, 3 total refill(s ), Acute Discont inued 01/17/2024 90.0 Ambulat ory Pharmac y Jardiance 25 mg tablet 25 mg, Oral, every morning, # 90 EA, 3 total refill(s ), Hard Stop, TALIB Oral (given by mouth) Ordered 01/15/2025 90.0 Ambul at ory Pharmac y levothyroxi ne [Lannett] 137 mcg capsule See Instruct ions, # 90 EA, 3 total refill(s ), Acute Complet ed 01/30/2024 90.0 Ambulat ory Pharmac y levothyroxi ne [Tirosint] 137 mcg capsule 137 mcg, Oral, Daily, # 90 EA, 3 total refill(s ), Hard Stop Oral (given by mouth) Ordered 03/19/2025 90.0 Ambul at ory Pharmac y meloxicam 15 mg tablet 15 mg, Oral, Daily, # 90 EA, 1 total refill(s ), Hard Stop Oral (given by mouth) Ordered 05/07/2025 90.0 Ambul at ory Pharmac y MODAFINIL (modafinil) , 200 MG, TABLET, ORAL, [employer] 30 ea. BOTTLE Active [id number] 2023 30 Pharmac y Data Transac tion Service Facilit y needle pen 31g 8mm [100EA] See Instruct ions, # 500 EA, 3 total refill(s ), Hard Stop Complet ed 06/20/2024 500.0 Ambulat ory Pharmac y needle pen 31g 8mm [100EA] See Instruct ions, # 500 EA, 3 total refill(s ), Hard Stop Discont inued 03/21/2024 500.0 Ambulat ory Pharmac y NovoLOG FlexPen aspart 100 units/mL [3mL] See Instruct ions, SubCutan eous, # 15 mL, 3 total refill(s ), Hard Stop SubCut aneous (under the skin) Complet ed 06/20/2024 15.0 Ambulat ory Pharmac y omeprazole DR 20 mg capsule See Instruct ions, Oral, # 56 EA, 0 total refill(s ), Hard Stop Oral (given by mouth) Ordered 01/23/2025 56.0 Ambul at ory Pharmac y OZEMPIC (semaglutid e), 2MG/0.75ML, PEN INJCTR, SUBCUT, MARIE NORDISK, 3 ml SYRINGE Active [id number] 2023 3 Pharmac y Data Transac [employer] Service Facilit y rosuvastati n 20 mg tablet 20 mg, Oral, Daily, # 90 EA, 1 total refill(s ), Hard Stop Oral (given by mouth) Complet ed 04/30/2024 90.0 Ambulat ory Pharmac y rosuvastati n 20 mg tablet 20 mg, Oral, Daily, # 90 EA, 1 total refill(s ), Hard Stop Oral (given by mouth) Discont inued 12/16/2024 90.0 Ambulat ory Pharmac y rosuvastati n 20 mg tablet 20 mg, Oral, Daily, # 90 EA, 1 total refill(s ), Hard Stop Oral (given by mouth) Ordered 12/08/2025 90.0 Ambul at ory Pharmac y Tadalafil (Adcirca) Tablet 20 mg Oral Take or use exactly as directed .Obtain advice for OTCs.[place] id nitrates . Active 01/03/2025 [id number] 2023 180 [facility] Eliseo JOSEPH ([facility] tadalafil (eqv-adcirc a) 20 mg tablet 40 mg, Oral, Daily, # 60 EA, 5 total refill(s ), Hard Stop Oral (given by mouth) Ordered 09/16/2025 60.0 Ambul at ory Pharmac y tadalafil (eqv-adcirc a) 20 mg tablet See Instruct ions, Oral, # 180 EA, 2 total refill(s ), Hard Stop Oral (given by mouth) Discont inued 11/25/2024 180.0 Ambulat ory Pharmac y TADALAFIL (tadalafil) , 20 MG, TABLET, ORAL, '[facility], 60 ea. BOTTLE Active [id number] 2023 30 Pharmac y Data Transac tion Service Facilit y TADALAFIL (tadalafil) , 20 MG, TABLET, ORAL, 'S LAB, 60 ea. BOTTLE Active [id number] 4 2023 30 Pharmac y Data Transac tion Service Facilit y tamsulosin 0.4 mg capsule 0.4 mg, Oral, # 30 EA, 11 total refill(s ), Hard Stop Oral (given by mouth) Complet ed 06/19/2024 30.0 Ambulat ory Pharmac y telmisartan (U/D) 40 MG ORAL TAB Be careful if taking OTCs.Eleazar e or use exactly as directed .Do not take if . 12/12/2024 [id number] 4 2023 90 [facility] Eliseo JOSEPH ([facility] telmisartan 40 mg tablet 40 mg, Oral, Daily, # 90 EA, 1 total refill(s ), Hard Stop Oral (given by mouth) Complet ed 04/30/2024 90.0 Ambulat ory Pharmac y telmisartan 40 mg tablet 40 mg, Oral, Daily, # 90 EA, 1 total refill(s ), Hard Stop Oral (given by mouth) Discont inued 12/16/2024 90.0 Ambulat ory Pharmac y telmisartan 40 mg tablet 40 mg, Oral, Daily, # 90 EA, 1 total refill(s ), Hard Stop Oral (given by mouth) Ordered 12/08/2025 90.0 Ambul at ory Pharmac y U-300 (conc) Toujeo SoloStar glargine 300 units/mL [1.5mL] See Instruct ions, SubCutan eous, # 4.5 mL, 3 total refill(s ), Hard Stop SubCut aneous (under the skin) Ordered 09/24/2025 4.5 Ambul at ory Pharmac y Allergies, Adverse Reactions, Alerts Combined list of allergies from Department of Defense and Veterans Affairs facilities. It does not include entries that were removed or entered in error. Substance Category Reaction Severity Reaction type Status Date Reported Comments Source No Known Allergies Drug allergy (disorder) [facility]2017 [facility] Immunizations Combined list of available immunizations from the Department of Defense and Veterans Affairs facilities. Immunization Series Date Given Administered By Site Reaction Lot Number CVX Code Drug Epitaxial Reactor Technician Status Comments Source influenza virus vaccine, whole virus [id number] [facility] complet ed influenza virus vaccine, whole virus 09/13/98 Given Ambulat ory Pharmac y influenza virus vaccine, whole virus [id number] 16 [facility] complet ed influenza virus vaccine, whole virus 09/13/98 Given Ambulat ory Pharmac y influenza virus vaccine, whole virus 0 [id number] 16 [facility] (CON) complet ed influenza virus vaccine, whole virus DoD hepatitis A adult vaccine 1996 [id number] 52 [employer] complet ed hepatitis A adult vaccine 09/11/97 Given Ambulat ory Pharmac y tetanus-dipht h toxoids (Td) adult/adol 1996 [id number] [facility] complet ed tetanus-d iphth toxoids (Td) adult/ado l 09/11/97 Given Ambulat ory Pharmac y influenza virus vaccine, whole virus 1996 [id number] 16 [facility] complet ed influenza virus vaccine, whole virus 09/11/97 Given Ambulat ory Pharmac y hepatitis A adult vaccine 1996 [id number] 6 52 GlaxoSmithK[employer] ne complet ed hepatitis A adult vaccine 09/11/97 Given Ambulat ory Pharmac y tetanus-dipht h toxoids (Td) adult/adol 1996 [id number] 09 [facility] complet ed tetanus-d iphth toxoids (Td) adult/ado l 09/11/97 Given Ambulat ory Pharmac y tetanus and diphtheria toxoids, adsorbed, preservative free, for adult use (2 Lf of tetanus toxoid and 2 Lf of diphtheria toxoid) 0 1996 [id number] [facility] (CON) complet ed tetanus and diphtheri a toxoids, adsorbed, preservat duke free, for adult use (2 Lf of tetanus toxoid and 2 Lf of diphtheri a toxoid) [facility] influenza virus vaccine, whole virus 0 1996 [id number] 16 [employer] (CON) complet ed influenza virus vaccine, whole virus DoD hepatitis A vaccine, adult dosage 2 1996 [id number] 6 52 [facility] ([facility]) complet ed hepatitis A vaccine, adult dosage DoD typhoid, parenteral, AKD 1987 53 complet ed typhoid, parentera l, AKD 06/12/88 Given Ambulat ory Pharmac y typhoid, parenteral, AKD 1987 53 complet ed typhoid, parentera l, AKD 06/12/88 Given Ambulat ory Pharmac y typhoid vaccine, parenteral, acetone-kille d, dried ([place] ) 1 1987 Unknown, Provider 53 () complet ed typhoid vaccine, parentera l, acetone-k illed, dried ([place] ) DoD vaccinia (smallpox) vaccine 1982 75 complet ed vaccinia (smallpox ) vaccine 03/12/83 Given Ambulat ory Pharmac y vaccinia (smallpox) vaccine 1982 75 complet ed vaccinia (smallpox ) vaccine 03/12/83 Given Ambulat ory Pharmac y vaccinia (smallpox) vaccine 1 1982 Unknown, Provider 75 () complet ed vaccinia (smallpox ) vaccine [facility] poliovirus vaccine, live, oral [phone] 02 [facility] polioviru s vaccine, live, oral 05/11/79 Given Ambulat ory Pharmac y poliovirus vaccine, live, oral [phone] 02 [facility] polioviru s vaccine, live, oral 05/11/79 Given Ambulat ory Pharmac y trivalent poliovirus vaccine, live, oral 0 [phone] 02 [employer] (CON) complet ed trivalent polioviru s vaccine, live, oral DoD measles/mumps /rubella virus vaccine [phone] 03 [facility] measles/m umps/rube lla virus vaccine 07/08/78 Given Ambulat ory Pharmac y measles/mumps /rubella virus vaccine [phone] 03 [facility] complet ed measles/m umps/rube lla virus vaccine 07/08/78 Given Ambulat ory Pharmac y measles, mumps and rubella virus vaccine 0 1977 [id number] 03 [facility] (CON) complet ed measles, mumps and rubella virus vaccine DoD Encounters Combined list of: 1) Encounters from Department of Veterans Affairs facilities going backup to the last 18 months, not all VA inpatient encounters are included; 2) Encounters from the Department of Defense facilities going backup to 280 months. Location Location Details Encounter Type Encounter Number Reason For Visit Attending Provider ADM Date DC Date Status Disposition Source [address] [place] [address] [place] [facility] [place] [facility] [place] OUTPATIENT [id number] cold (7 dys) RORY COWAN 01/23 Released w/o Limitations [address] [place] [address] Eliseo [facility]PH [facility] [place] [facility] [address] [place] [address] [place] [facility] [place] [facility] Blue[place] OUTPATIENT [id number] CONGEST CLAUDIA DILLON (GREEN MUCUS) SHAHRIAR COLLADO 04/21 Released w/o Limitations [address] [place] [address] [place] [facility] [place] [facility] [address] [place] [address] [place] [facility] [place] [facility] Tm Green) OUTPATIENT [id number] f/u diabeti c patient [id number] ATILIO HUMMEL 10/23 Released w/o Limitations [address] [place] [address] El[place]o [facility]PH [facility] [place] [facility] [place] [address] [place] [address] [place] [facility] [place] [facility] [place] OUTPATIENT [id number] ED and psa check ATILIO HUMMEL 08/21 Released w/o Limitations [address] [place] [address] El[place] [facility] [place] [facility] [place] [address] [place] [address] [place]o [facility] [place] [facility] [place]m Green) TELE CONSULT [id number] Notes Entered by: ATILIO HUMMEL 30 Oct 2013 0853 ------- ------- ------- ------- -- Colonos copy results SHAHEEDATILIO ESPINOZA Duglas 10/[address] [place] [address])(S [facility] Fam Res Tm Green) [address] [place] [address])(Azo tt [facility] Res Green) OUTPATIENT [id number] Discuss ion on memory loss x yr, bumps on head x yr 520.438 7 NAOMY COREY 05/28 Released w/o Limitations [address] [place] [address])(S [facility] Fam Res Tm Green) [address] [place] [address])([facility] ) OUTPATIENT [id number] x/b [facility] both ears painful ,sore throat, congest ion,cou gh [id number] PATRIC PARSONS 01/24 Released w/o Limitations [address] [place] [address])(S [facility] Interna l Medicin e Tm) [address] [place] [address])([facility] Tm A Ad) TELE CONSULT [id number] Notes Entered by: Telma HERNANDEZ 04 Apr 2016 1223 ------- ------- ------- ------- -- Sx - Bad sore throat / Blessin g Cuong Adan ne / JAY NORTH 04/[address] [place] [address])([facility] Tm A Ad) [address] [place] [address])([facility] Disease Managemen t) TELE CONSULT [id number] Notes Entered by: NACHO MATAMOROS 2016 1505 ------- ------- ------- ------- -- Pt showing on diab overdue list NACHO MATAMOROS 04/[address] [place] [address])(S [facility] Disease Managem ent) [address] [place] [address])([facility] tt Disease Managemen t) TELE CONSULT [id number] Notes Entered by: Sebastian BATRES 10 May 2017 1353 ------- ------- ------- ------- -- Diabeti c Managem ent TOBIAS BATRES 05/[address] [place] [address])(Nia christine Disease Managem ent) [address] [place] [address])([facility] Tm A Ad) OUTPATIENT [id number] F/u on BP meds, 877.442 0 SHY MATSON 10/17 Released w/o Limitations [address] [place] [address])([facility] Tm A Ad) [address] [place] [address])(Sco tt Disease Managemen t) TELE CONSULT [id number] Notes Entered by: Sebastian BATRES 13 May 2018 1105 ------- ------- ------- ------- -- Disease Managem ent [phone] TOBIAS BATRES 05/[address] [place] [address])(Nia emmett Disease Managem ent) [facility] Outpatient Encounter [id number] 06/25 [facility] N 0055C-375 th [facility] janet Between Visit [id number] 09/23 Discharge Disposition: Home or Self Care 0055C-3 [facility] 0055C-375 [facility] janet Between Visit [id number] 09/24 Discharge Disposition: Home or Self Care 0055C-3 [facility] 0055C-375 th [facility] janet Between Visit [id number] 11/24 Discharge Disposition: Home or Self Care 0055C-3 [facility] [place] 0055C-375 [facility] janet Between Visit [id number] 11/25 Discharge Disposition: Home or Self Care 0055C-3 [facility] 0055C-375 [facility] janet Between Visit [id number] 12/16 Discharge Disposition: Home or Self Care 0055C-3 [facility] Procedures Combined list of: 1) Procedures from Department of Veterans Affairs facilities going back up to thelast 18 months, not all VA non-surgical procedures are included; 2) All procedures from the Department of Defense facilities. Procedure Procedure Type Code Date Perfomer Comments Sourc e Non-Physician Phone Call To Pt/Provider Intermed (11-20 min) Non-Physician Phone Call To Pt/Provider Intermed (11-20 min) [id number] 05/13/20 18 BATRES, TOBIAS R [facility] Disease management program, follow-up/chi e ment 05/13/20 18 BATRES, TOBIAS [facility] Patient Counseling Medical Management Individual Patient Patient Counseling Medical Management Individual Patient [id number] 05/13/20 18 BATRES, TOBIAS [facility] Non-Physician Phone Call To Pt/Provider Intermed (11-20 min) Non-Physician Phone Call To Pt/Provider Intermed (11-20 min) [id number] 05/10/20 17 BATRES, TOBIAS [facility] Disease management program, follow-up/chi e ment 05/10/20 17 BATRES, TOBIAS [facility] Patient Counseling Medical Management Individual Patient Patient Counseling Medical Management Individual Patient [id number] 05/10/20 17 BATRES, TOBIAS Sarah [facility] Telephone calls by a registered nurse to a disease management program member for monitoring purposes; per month 04/27/20 16 NACHO MATAMOROS Non-Physician Phone Call To Patient/Provider Brief (5-10min) Non-Physician Phone Call To Patient/Provide r Brief (5-10min) [id number] 04/27/20 16 NACHO MATAMOROS [facility] Non-Physician Phone Call To Patient/Provider Brief (5-10min) Non-Physician Phone Call To Patient/Provide r Brief (5-10min) [id number] 04/04/20 16 JAY NORTH [facility] TELE ASSESS & MGT SRV PROV QUAL NONPHYS HLTH CARE PRO TO EST PAT,PARENT,GUARD NOT ORIG REL ASSESS & MGT SRV PROV W/IN PREV 7 DAYS NOR LEAD ASSESS & MGT SRV/PX W/IN NXT 24H/SOON APT; 11-20 MIN MED DIS 05/13/20 18 DoD TELE ASSESS & MGT SRV PROV QUAL NONPHYS HLTH CARE PRO TO EST PAT,PARENT,GUARD NOT ORIG REL ASSESS & MGT SRV PROV W/IN PREV 7 DAYS NOR LEAD ASSESS & MGT SRV/PX W/IN NXT 24H/SOON APT; 11-20 MIN MED DIS 05/10/20 17 DoD TELEPHONE CALLS BY A REGISTERED NURSE TO A DISEASE MANAGEMENT PROGRAM MEMBER FOR MONITORING PURPOSES; PER MONTH 04/27/20 16 DoD TELE ASSESS & MGT SRV PROV QUAL NONPHYS HLTH CARE PRO TO EST PAT,PARENT,GUARD NOT ORIG REL ASSESS & MGT SRV PROV W/IN PREV 7 DAYS NOR LEAD ASSESS & MGT SRV/PX W/IN NXT 24 HR/SOON APT;5-10 MIN MED DIS 04/04/20 16 DoD OPHTHALMOLOGICAL SERVICES: MEDICAL EXAMINATION AND EVALUATION, WITH INITIATION OR CONTINUATION OF DIAGNOSTIC AND TREATMENT PROGRAM; COMPREHENSIVE, ESTABLISHED PATIENT, 1 OR MORE VISITS 12/18/19 04 [facility] No data available for this section Ambulatory Pharmacy Social History Combined list of available smoking, tobacco, and other social history from Department of Defense and Veterans Affairs facilities. Social History Type Response Date Comment Sourc e This section is an empty social history section. DoD Assessment and Plan Combined list of future care activities from Department of Defense and Veterans Affairs facilities (e.g., assessment and plan notes, appointments, orders, and referrals). Additional future care activities may be listed in the Plan of Care section. Result Assessment and Plan Date Source Assessment and Plan No data available for this section 12/30/2024 Ambulatory Pharmacy Functional Status Combined list of recent functional and cognitive assessments recorded at Department of Defense and Veterans Affairs (VA).VA Functional [place] Measurement (FIM) Scale: 1 = Total Assistance (Subject = 0% +), 2 = Maximal Assistance (Subject = 25% +), 3 = Moderate Assistance (Subject = 50% +), 4 = Minimal Assistance (Subject = 75% +), 5 = Supervision, 6 = Modified [place] (Device), 7 = Complete [place] (Timely, Safely). Assessment Date/Time Source Assessment Type Assessment Skill Assessment Score Assessment Details No data available for this section
--- OUTSIDE RECORDS SUMMARY | 2024-12-29 18:23 | XMS_ITS | Clinical Summary ---
Author Organization [facility] Address [address] [place] [id number] Care Team Providers Care Health Communications Specialist Name Role Phone Jerome Barnes MD Primary Care Provider [phone] Social History Tobacco Use Types Packs/Day Years Used Date Smoking Tobacco: Never Assessed Sex and Gender Information Value Date Recorded Sex Assigned at Not on file Legal Sex Male 5:33 PM CDT Gender Identity Not on file Sexual Orientation Not on file Last Filed Vital Signs Vital Sign Reading Time Taken Comments Blood Pressure 138/97 06/23/2013 1:35 PM CDT Pulse 76 06/23/2013 1:35 PM CDT Temperature - - Respiratory Rate - - Oxygen Saturation - - Inhaled Oxygen Concentration - - Weight 103 kg (227 lb) 06/05/2013 1:08 PM CDT Height 157.5 cm (5' 2 ) 06/23/2013 1:35 PM CDT Body Mass Index 41.52 06/05/2013 1:08 PM CDT Plan of Treatment Health Maintenance Due Date Last Done Comments Colorectal Cancer Screening Colonoscopy (10 Years) 1959 Hepatitis C 1977 DTaP, Tdap and Td Vaccines ( 1 - Tdap) 1978 Zoster Vaccines (1 of 2) 2009 Pneumococcal Vaccine: 65+ Ye ars (1 of 1 - PCV) 2024 COVID-19 Vaccine (1 - 2023-2 5 season) 2024 Influenza Adult (#1) 2024 RSV Immunization or 60+ Years (1 - 1-dose 75+ series) 2034 Meningococcal B Vaccine Aged Out No l onger eligible based on patient's age to complete this topic Meningococcal Vaccine Aged Out No anita lilia eligible based on patient's age to complete this topic Pneumococcal Vaccine: Pediat rics (0 to 5 Years) and At-Risk Patients (6 to 64 Years) Aged Out No longer eligible b ased on patient's age to complete this topic RSV Immunizations Under 20 Months Aged Out No longer eligible based on patient's age to complete this topic Care Teams Health Communications Specialist Relationship Specialty [place] [address] [place] [address] PCP - General 10/24/13
--- OUTSIDE RECORDS SUMMARY | 2024-12-29 18:23 | XMS_ITS | Continuity of Care Document ---
Author Organization [facility] Address [address] [place] [address] Phone Care Team Providers Care Nuclear Criticality Safety Engineer Name Role Phone Nabila Antonio MD Unavailable Unavailabl e Allergies, Adverse Reactions, Alerts Substance Reaction Status Criticality No Known Drug Allergies Other Active No I nformation Medications Medication Instructions Dosage Effective Dates (start - stop) Status Comments LANTUS 100 U/ML UNITS 26 QAM - Acti ve DILTIAZEM ER 180MG CAPS 1 QD-daily - Active CRESTOR 10MG TABS 1 QD-daily - Active METFORMIN HCL 500MG TABS 1 TID - Active APIDRA 100 U/ML UNITS 0 DIRECTE - A ctive ssi SYNTHROID 125MCG TABS 1 QD-daily - Act duke FOSINOPRIL SODIUM 40MG TABS 1 QD-daily - Active DEPO-TESTOSTERONE 200MG/ML ML 1 ALT WEEK - No Longer Active self Advance Directives Directive Yes / No Effective Date File Name No Information Encounters Encounter Description Practice Location Reason(s) For Visit Diagnoses Date Provider Providers Copied on Encounter [facility], [address], [place], [place], [id number] , [place] tel: [phone] [place] No Information Jul-0 6 1 Marisela Dahl. [address], [place], [id number]. tel:[phone] [facility], [address], [place], [place], [id number] , [place] tel: [phone] [place] SCREEN MAL NEOP-RECTUMBENIGN HYPERTENSIONMIXED HYPERLIPIDEMIAMALAIS E AND FATIGUE NECPOSTABLAT HYPOTHYR NECTESTICULAR HYPOFUNC NECDMI WO CMP UNCNTRLD [phone] Marisela Dahl. [address], [place], [id number]. tel:[phone] Family History Family Member Type Diagnosis Age At Onset No Information Payers Payer name Insurance type Covered republican ID Authoriza tion(s) No Information Social History Type Description Quantity Date Captured Comments Sex Male Smoking Status No Information Chief Complaint And Reason For Visit No Information Reason For Referral Reason For Referral No Information History Of Present Illness Encounter Date Complaint History Of Prese nt Illness No Information Functional Status Date Functional Assessmen t No Information Instructions Date Instruction Additional Infor mation No Information Assessments Type Assessment Date No Information Patient Care Teams Name Effective Dates (start - stop) Status Members No Information
--- OUTSIDE RECORDS SUMMARY | 2024-12-29 18:23 | XMS_ITS | Clinical Summary ---
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 4 Active doxepin 6 mg [...] Thyroid activity decreased 08/19/2012 Diabetes mellitus 08/19/2012 Surgical History Surgery Date Site/Laterality Comments THYROIDECTOMY CYST REMOVAL VASECTOMY CARDIAC CATHETERIZATION 09/17/2020 No CAD Medical History Medical History Date Comments Hyperlipidemia Hyperlipidemia Hypertension Hypertension Sleep apnea Type 2 diabetes mellitus (HCC) Hypothyroidism Fatigue Graves disease 1994 Positive MINI (antinuclear antibody) 2020 Autoimmune disease (CMS/HCC) (HCC) 1994 Family History Medical History Relation Name Comments Early Father Edward Heart attack Father Edward Heart disease Father Edward Alzheimer's disease Mother Toshiko Diabetes Mother Toshiko Diabetes type II Other 1 Family hist ory of Diabetes -Type II; Hypothyroidism Other 2 Family histor y of Hypothyroidism; Relation Name Status Comments Father Jaspreet Mother Kortney Other 1 Other 2 Social History Tobacco Use Types Packs/Day Years [...] on file Legal Sex 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 Gender Identity Not on file Sexual Orientation Not on file Obstetrics History Last Filed Vital Signs Vital Sign Reading Time Taken Comments Blood Pressure 128/64 02/22/2024 11:18 AM CDT Pulse 65 02/22/2024 11:18 AM CDT Temperature 36.8 C (98.3 F) 09/17/2020 7:03 AM 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 Respiratory Rate 16 09/17/2020 7:03 AM 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 Oxygen Saturation 98% 02/22/2024 11:18 AM CDT Inhaled Oxygen Concentration - - Weight 81.2 kg (179 lb) 02/22/2024 11:18 AM CDT Height 170.2 cm (5' 7 ) 02/22/2024 11:18 AM CDT Body Mass Index 28.04 02/22/2024 11:18 AM CDT Plan of Treatment Health Maintenance Due Date Last Done Comments Albumin Creatinine Ratio, Urine 1959 Colon Cancer Screening-Colonoscopy 1959 Depression Screening 1959 Hemoglobin A1C 1959 Hepatitis C Screening 1959 Prostate Cancer Screening-PSA 1959 Dilated Eye Exam 1959 Foot Exam 1959 Hepatitis B Screening 1977 Pneumococcal vaccine 65+ (1 of 2 - PCV) 1978 DTaP/Tdap/Td Vaccine (1 - Tdap) 09/12/1997 7 Zoster Vaccine (1 of 2) 2009 eGFR 09/08/2021 09/08/2020 Fall Risk Assessment 09/17/2021 09/17/2020 Well Visit 65+ 2024 Influenza Vaccine (#1) 2024 9, 09/13/1998, 09/11/1997 Lipid Panel 02/21/2025 02/22/2024, 09/14, 06/30/2021, Additional history exists Procedures Procedure Name Priority Date/Time Associated Diagnosis [...] Capillary blood 02/22/2024 1 1:14 AM CDT Aurelio Figueroa MD POINT OF CARE TEST [...] mL/min/1.73m2 *Relative to young adult level If -H[place] multiply value by 1.16. Estimated glomerular filtration [...] 7:22 AM CDT 09/08/2020 7:22 AM CDT us Aurelio Figueroa MD LAB BLOOD ORDERAB[place] [id number] [address] [place] [address] from Last 3 Months or Most Recently Relevant to Health Maintenance [place] [address] [place] [id number] [employer] Couple [place] [address] [place] [id number] Couple [place] [employer] [place] [employer] [employer] [place] [employer] [place] Care Teams Envelope Stamping Machine Operator Relationship Specialty Start Date End Date Mason Lewis MD PCP - General Family Practice 02/22/24
--- OUTSIDE RECORDS SUMMARY | 2024-12-29 18:24 | XMS_ITS | Patient Health Summary ---
Author Organization [facility] Address [address] [place] [address] Care Team Providers Care Assistant Store Leader Name Role Phone Mason Lewis MD Primary Care Provider [phone] Note from [facility],non-owned Affiliates and Associated Physician Practices is amultiple site organization consisting of ambulatory clinics and hospital sitesin [place], [place], [place] and [place]. This disclosure is being madepursuant to the Care Everywhere program and may not contain all information available regarding this patient. Last updated 18.[facility] Allergies No known active allergies Medications * Be aware that medications may not be up to date on this document. Alwaysverify current medications with the patient. * cyanocobalamin (VITAMIN B-12) 100 MCG tablet * empagliflozin (JARDIANCE) 25 MG tablet 1 (one) tablet once daily * TRESIBA FLEXTOUCH 200 UNIT/ML pen(Started 01/03/2021) INJECT 18 UNITS UNDER THE SKIN EVERY MORNING * B-D ULTRAFINE III SHORT PEN 31G X 8 MM needle(Started 01/03/2021) USE FIVE TIMES DAILY DIRECTED WITH INJECTIONS * modafinil (PROVIGIL) 200 MG tablet Take 1 (one) tablet by mouth once daily * ASPIRIN 81 PO * ibuprofen (MOTRIN) 600 MG tablet Take 1 (one) tablet by mouth every 6 hours as needed for Pain * dextroamphetamine (DEXEDRINE) 10 MG tablet(Started 09/20/2021) Take 1 (one) tablet by mouth once daily * eszopiclone (Lunesta) 3 MG tablet(Started 07/28/2022) Take 1 (one) tablet by mouth as needed * ketoconazole (Nizoral) 2 % shampoo(Started 10/24/2024) Apply to affected area once daily 5 refills by 10/24/2025 Active Problems Problem Noted Date Diagnosed Date Eustachian tube dysfunction 08/01/2022 Male erectile disorder 08/01/2022 Psoriasis 08/01/2022 Syncope and collapse 10/11/2021 Inflammatory arthritis 09/26/2021 Atypical chest pain 08/12/2020 Dyspnea on exertion 08/12/2020 Hyperlipidemia associated with type 2 diabetes m ellitus 08/12/2020 BOGDAN (obstructive sleep apnea) 08/12/2020 Other fatigue 08/12/2020 Memory impairment 09/29/2015 Hypertension associated with diabetes 03/28/2014 Pure hypercholesterolemia 03/28/2014 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 Osteopenia 08/19/2012 Type 2 diabetes mellitus 08/19/2012 Immunizations * Covid Moderna primary monovalent 12+ yr 0.5mL(Given 09/11/2021, 03/11/2021, 02/09/2021) * HEP A VACCINE, ADULT(Given 09/11/1997) * INFLUENZA VACCINE(Given 09/13/1998, 09/11/1997) * MMR(Given 07/08/1978) * POLIO OPV(Given 05/11/1979) * SMALLPOX (VACCINIA) VACCINE, LIVE(Given 03/12/1983) * TYPHOID VACCINE(Given 06/12/1988) * Td (Adult), 2 Lf Tetanus Toxoid, Adsorbed, Pf(Given 09/11/1997) Social History Tobacco Use Types Packs/Day Years Used Date Smoking Tobacco: Never Smokeless Tobacco: Never Tobacco Cessation:Counseling Given: Not Answered Alcohol Use Standard Drinks/Week Comments Not Currently 0 (1 standard drink = 0.6 oz pur e alcohol) yearly PHQ-2 Answer Date Recorded Patient Health Questionnaire-2 Score 0 10/24/2024 Education Answer Date Recorded What is the highest level of school you have completed or the highest degree you have received? Some college, no degree 08/01/2022 Sex and Gender Information Value Date Recorded Sex Assigned at Not on file Gender Identity Not on file Sexual Orientation Not on file Last Filed Vital Signs Vital Sign Reading Time Taken Comments Blood Pressure 137/66 10/24/2024 1:36 PM OCCUPATIONAL THERAPY INSTRUCTOR Pulse 74 10/24/2024 1:36 PM OCCUPATIONAL THERAPY INSTRUCTOR Temperature 36.4 C (97.5 F) 02/22/2021 2:08 PM CDT Respiratory Rate 18 01/18/2024 1:49 PM OCCUPATIONAL THERAPY INSTRUCTOR Oxygen Saturation 98% 01/18/2024 1:49 PM OCCUPATIONAL THERAPY INSTRUCTOR Inhaled Oxygen Concentration - - Weight 76.2 kg (168 lb) 10/24/2024 1:36 PM OCCUPATIONAL THERAPY INSTRUCTOR Height 170.2 cm (5' 7 ) 10/24/2024 1:36 PM OCCUPATIONAL THERAPY INSTRUCTOR Body Mass Index 26.31 10/24/2024 1:36 PM OCCUPATIONAL THERAPY INSTRUCTOR Procedures * MINI BLOOD TITER(Performed 11/03/2024) * MYOSITIS 11 ANTIBODY PNL(Performed 11/03/2024) Performed for Pulmonary hypertension (HCC) * CARDIOLIPIN ANTIBODY IGA/IGG/IGM PANEL(Performed 11/03/2024) Performed for Chronic pain of both knees * CK BLOOD(Performed 11/03/2024) Performed for Chronic pain of both knees * COMPLEMENT C3 C4 PANEL(Performed 11/03/2024) Performed for Chronic pain of both knees * MINI PANEL COMPREHENSIVE(Performed 11/03/2024) Performed for Chronic pain of both knees * C-REACTIVE PROTEIN(Performed 11/03/2024) Performed for Chronic pain of both knees * ERYTHROCYTE SEDIMENTATION RATE(Performed 11/03/2024) Performed for Chronic pain of both knees * COMPREHENSIVE METABOLIC PANEL(Performed 11/03/2024) Performed for Chronic pain of both knees * CBC W AUTO DIFFERENTIAL(Performed 11/03/2024) Performed for Chronic pain of both knees * ECHO COMPLETE(Performed 07/03/2023) Performed for Pulmonary hypertension (HCC), Raynaud's phenomenon without gangrene * COMPLETE PFT W/WO BRONCHODILATOR(Performed 07/03/2023) Performed for Pulmonary hypertension (HCC), Raynaud's phenomenon without gangrene * VITAMIN D 25-HYDROXY(Performed 05/01/2023) Performed for Osteopenia, unspecified location * DEXA BONE DENSITY AXIAL SKELETON(Performed 04/25/2023) Performed for Osteopenia, unspecified location * XR KNEE BILAT 3VW(Performed 03/16/2023) Performed for Chronic pain of both knees * FL POLYSOM 6/>YRS CPAP 4/> PARM(Performed 12/13/2022) Performed for BOGDAN (obstructive sleep apnea), Excessive daytime sleepiness, Chronic fatigue, Chronicinsomnia * CPAP/BIPAP TITRATION WITH MSLT(Performed 12/12/2022) Performed for BOGDAN (obstructive sleep apnea), Excessive daytime sleepiness, Chronic fatigue, Chronicinsomnia * MINI PANEL COMPREHENSIVE(Performed 05/12/2022) Performed for Raynaud's disease without gangrene, Fatigue, unspecified type * KELLY STAINING PATTERNS REFLEXED(Performed 05/12/2022) * MINI BLOOD SCREEN W/REFLEX TITER(Performed 05/12/2022) Performed for Raynaud's disease without gangrene, Fatigue, unspecified type * IMMUNOGLOBULINS IGG/IGM/IGA PANEL(Performed 05/12/2022) Performed for Raynaud's disease without gangrene, Fatigue, unspecified type * COMPREHENSIVE METABOLIC PANEL(Performed 02/03/2022) Performed for Psoriasis * CBC W AUTO DIFFERENTIAL(Performed 02/03/2022) Performed for Psoriasis * COMPREHENSIVE METABOLIC PANEL(Performed 09/26/2021) Performed for High risk medications (not anticoagulants) long-term use * CBC W AUTO DIFFERENTIAL(Performed 09/26/2021) Performed for High risk medications (not anticoagulants) long-term use * EARLY SJOGREN'S SYNDROME PROFILE(Performed 02/22/2021) Performed for Undifferentiated connective tissue disease (HCC) * MUSK ANTIBODY(Performed 02/22/2021) Performed for Undifferentiated connective tissue disease (HCC) * ACETYLCHOLINE RECEPTOR ANTIBODY PANEL(Performed 02/22/2021) Performed for Undifferentiated connective tissue disease (HCC) * PROTEIN ELECTROPHORESIS BLOOD(Performed 02/22/2021) Performed for Undifferentiated connective tissue disease (HCC) * URINALYSIS MICROSCOPIC ONLY REFLEXED(Performed 02/22/2021) Performed for Undifferentiated connective tissue disease (HCC) * CK BLOOD(Performed 02/22/2021) Performed for Undifferentiated connective tissue disease (HCC) * VITAMIN B12(Performed 02/22/2021) Performed for Undifferentiated connective tissue disease (HCC) * SCLERODERMA 70 (SCL) ANTIBODY(Performed 02/22/2021) Performed for Undifferentiated connective tissue disease (HCC) * COMPLEMENT C3 C4 PANEL(Performed 02/22/2021) Performed for Undifferentiated connective tissue disease (HCC) * DNA ANTIBODY DOUBLE STRANDED(Performed 02/22/2021) Performed for Undifferentiated connective tissue disease (HCC) * PROTEIN CREATININE RATIO URINE RANDOM PNL(Performed 02/22/2021) Performed for Undifferentiated connective tissue disease (HCC) * URINALYSIS REFLEX MICROSCOPIC REFLEX CULTURE(Performed 02/22/2021) Performed for Undifferentiated connective tissue disease (HCC) * C-REACTIVE PROTEIN(Performed 02/22/2021) Performed for Undifferentiated connective tissue disease (HCC) * ERYTHROCYTE SEDIMENTATION RATE(Performed 02/22/2021) Performed for Undifferentiated connective tissue disease (HCC) * COMPREHENSIVE METABOLIC PANEL(Performed 02/22/2021) Performed for Undifferentiated connective tissue disease (HCC) * CBC W AUTO DIFFERENTIAL(Performed 02/22/2021) Performed for Undifferentiated connective tissue disease (HCC) * CYCLIC CITRUL PEPTIDE ANTIBODY IGG/IGA (CCP)(Performed 02/22/2021) Performed for Undifferentiated connective tissue disease (HCC) * RHEUMATOID FACTOR BLOOD QUANTITATIVE(Performed 02/22/2021) Performed for Undifferentiated connective tissue disease (HCC) * BETA-2 GLYCOPROTEIN 1 ANTIBODY IGG/IGM PANEL(Performed 02/22/2021) Performed for Undifferentiated connective tissue disease (HCC) * CARDIOLIPIN ANTIBODY IGG/IGM PANEL(Performed 02/22/2021) Performed for Undifferentiated connective tissue disease (HCC) * LUPUS ANTICOAGULANT PANEL W RFLX(Performed 02/22/2021) Performed for Undifferentiated connective tissue disease (HCC) Results * MYOSITIS 11 ANTIBODY PNL (11/03/2024 6:13 AM OCCUPATIONAL THERAPY INSTRUCTOR) Marisol-1 Antibody <11 <[address] [facility] [address]-7 Antibody <11 <[address] [address]-12 Antibody <11 <11 [facility] EJ Antibody <11 <11 [facility] OJ Antibody <11 <11 [facility] SRP Antibody <11 <11 [facility] AR-2 Alpha Antibody <11 <11 [facility] AR-2 Beta Antibody <11 <11 [facility] MDA-5 Antibody <11 <11 [facility] TIF-1Y Antibody <11 <11 [facility] NXP-2 Antibody <11 <11 [facility] Comment: Myositis-specific autoantibodies (MSAs) are highly selective, generally mutually exclusive, and are associated with a particular clinical phenotype within the myositis spectrum. Anti-synthetase syndrome is associated with MSAs to cytoplasmic enzymes and tRNAs involved with the synthesis of proteins. Target antigens include Marisol-1, PL-7, PL-12, EJ, and OJ. Clinically, anti-synthetase syndrome is primarily characterized by myositis and lung inflammation. Dermatomyositis is associated with MSAs to SRP, Mi-2A, Mi-2B, and clinically this disease is characterized by myositis in association with a rash. Additionally, MSAs to MDA5 (AZAP003) have been identified in patients with clinically amyopathic dermatomyositis and rapidly progressive lung disease. MSAs to TIF1-y and NXP-2, collectively, are seen in >40% of children with dermatomyositis and appear to identify those with more severe disease. Finally, TIF1-y Ab has been reported in adults with dermatomyositis and is associated with malignancy, but not in children. SRP Ab has also been associated with necrotizing myopathy, a disease with unique histological features and an aggressive clinical course. This test was developed and its analytical performance characteristics have been determined by [employer]. It has not been cleared or approved by the FDA. This assay has been validated pursuant to the CLIA regulations and is used for clinical purposes. Test Performed at: [facility] [address] [place] [address] PADMINI PETTY MD,PHD,JOYA Blood BLOOD SPECIMEN / Unknown 11/03/2024 6:13 AM OCCUPATIONAL THERAPY INSTRUCTOR 11/03/2024 6:14 AM OCCUPATIONAL THERAPY INSTRUCTOR Megha Berkowitz MD LAB - SEROLOGY ORDER SAIMA [facility] [address] [place] [address] * CARDIOLIPIN ANTIBODY IGA/IGG/IGM PANEL (11/03/2024 6:13 AM OCCUPATIONAL THERAPY INSTRUCTOR) Cardiolipin Antibody IgA <2.0 APL-U/mL [facility] Comment: Value Interpretation ----- < 20.0 Antibody not detected > or = 20.0 Antibody detected Cardiolipin Antibody IgG <2.0 GPL-U/mL [facility] Comment: Value Interpretation ----- < 20.0 Antibody not detected > or = 20.0 Antibody detected Cardiolipin Antibody IgM <2.0 MPL-U/mL [facility] Comment: Value Interpretation ----- < 20.0 Antibody not detected > or = 20.0 Antibody detected The antiphospholipid antibody syndrome (APS) is a clinical-pathologic correlation that includes a clinical event (e.g. arterial or venous thrombosis, morbidity) and persistent positive antiphospholipid antibodies (IgM, IgG Cardiolipin or b2GPI antibodies greater than the 99th percentile; or a lupus anticoagulant). International consensus guidelines for APS suggest waiting at least 12 weeks before retesting to confirm antibody persistence. The Systemic Lupus International Collaborating [facility]ics immunological classification criteria for systemic lupus erythematosus (SLE) include testing for isotype IgA, which has yet to be incorporated into APS criteria. Low level antiphospholipid antibodies may sometimes be detected in the setting of infection, drug therapy or aging. For additional information, please refer to http://Zumigo.Wallmob/faq/WTT719 (This link is being provided for informational/ educational purposes only.) Test Performed at: [facility] [address] [address] LIZANDRO Emma MCGEE Blood BLOOD SPECIMEN / Unknown 11/03/2024 6:13 AM OCCUPATIONAL THERAPY INSTRUCTOR 11/03/2024 6:14 AM OCCUPATIONAL THERAPY INSTRUCTOR Megha Berkowitz MD LAB - SEROLOGY ORDER SAIMA [facility] [address] [place] [address] * (ABNORMAL) MINI PANEL COMPREHENSIVE (11/03/2024 6:13 AM OCCUPATIONAL THERAPY INSTRUCTOR) Only the most recent of2 resultswithin the time period is included. MINI Screen POSITIVE( A) NEGATIVE [facility] Comment: MINI IFA is a first line screen for detecting the presence of up to approximately 150 autoantibodies in various autoimmune diseases. A positive MINI IFA result is suggestive of autoimmune disease and reflexes to titer and pattern. Further laboratory testing may be considered if clinically indicated. For additional information, please refer to http://Zumigo.eCollect/faq/RII915 (This link is being provided for informational/ educational purposes only.) dsDNA Antibody 1 IU/mL [facility] Comment: IU/mL Interpretation < or = 4 Negative 5-9 Indeterminate > or = 10 Positive SCL-70 Antibody <1.0 NEG <1.0 NEG AI [facility] SM Antibody <1.0 NEG <1.0 NEG AI [facility] SM/LEAD HANDLER Antibody <1.0 NEG <1.0 NEG AI [facility] Sjogren's Antibodies (SSA) <1.0 NEG <1.0 NEG AI [facility] Sjogren's Antibodies (SSB) <1.0 NEG <1.0 NEG AI [facility] Comment: Test Performed at: [facility] [place] [address] AMIE MOSER MD Blood BLOOD SPECIMEN / Unknown 11/03/2024 6:13 AM OCCUPATIONAL THERAPY INSTRUCTOR 11/03/2024 6:14 AM OCCUPATIONAL THERAPY INSTRUCTOR Megha Berkowitz MD LAB - SEROLOGY ORDER SAIMA Performing Organization Address [facility] de Phone Number [facility] [address] [place] [address] * C-REACTIVE PROTEIN (11/03/2024 6:13 AM OCCUPATIONAL THERAPY INSTRUCTOR) Only the most recent of2 resultswithin the time period is included. C-Reactive Protein <3.0 <8.0 mg/L [facility] Comment: Test Performed at: [facility] [address] AMIE MOSER MD Blood BLOOD SPECIMEN / Unknown 11/03/2024 6:13 AM OCCUPATIONAL THERAPY INSTRUCTOR 11/03/2024 6:14 AM OCCUPATIONAL THERAPY INSTRUCTOR Megha Berkowitz MD LAB - CHEMISTRY ORDE RABLES Performing Organization Address [facility] Co de Phone Number [facility] [address] [place] [address] * (ABNORMAL) MINI BLOOD TITER (11/03/2024 6:13 AM OCCUPATIONAL THERAPY INSTRUCTOR) MINI 1:80(H) titer [facility] Comment: A low level MINI titer may be present in pre-clinical autoimmune diseases and normal individuals. Reference Range <1:40 Negative 1:40-1:80 Low Antibody Level >1:80 Elevated Antibody Level MINI Pattern Nuclear, Homogeneou s(A) [facility] Comment: Homogeneous pattern is associated with systemic lupus erythematosus (SLE), drug-induced lupus and juvenile idiopathic arthritis. AC-1: Homogeneous International Consensus on MINI Patterns (https://doi.org/10.1515/jdtu-4115-5000) Test Performed at: [place] [address] AMIE MOSER MD 11/03/2024 6:13 AM OCCUPATIONAL THERAPY INSTRUCTOR 11/03/2024 6:14 AM OCCUPATIONAL THERAPY INSTRUCTOR Megha Berkowitz MD LAB - CHEMISTRY ORDE RABLES Performing Organization Address [facility] Co de Phone Number [facility] [address] [place] [address] * ERYTHROCYTE SEDIMENTATION RATE (11/03/2024 6:13 AM OCCUPATIONAL THERAPY INSTRUCTOR) Only the most recent of2 resultswithin the time period is included. Pathologist [facility] Erythrocyte Sedimentation Rate Westergren 2 < OR = 20 mm/h [facility] Comment: Test Performed at: [employer] [address] [place] [address] AMIE MOSER MD Blood BLOOD SPECIMEN / Unknown 11/03/2024 6:13 AM OCCUPATIONAL THERAPY INSTRUCTOR 11/03/2024 6:14 AM OCCUPATIONAL THERAPY INSTRUCTOR Megha Berkowitz MD LAB - HEMATOLOGY ORD ERABLES Performing Organization Address [facility] Co de Phone Number [facility] [address] [place] [address] * CBC WITH DIFFERENTIAL (11/03/2024 6:13 AM OCCUPATIONAL THERAPY INSTRUCTOR) Only the most recent of4 resultswithin the time period is included. White Blood Cell Count 5.0 3.8 - 10.8 Thousand/u L [facility] RBC 4.50 4.20 - 5.80 Million/uL [facility] Hemoglobin 14.0 13.2 - 17.1 g/dL [facility] Hematocrit 43.2 38.5 - 50.0 % [facility] MCV 96.0 80.0 - 100.0 fL [facility] MCH 31.1 27.0 - 33.0 pg [facility] MCHC 32.4 32.0 - 36.0 g/dL [facility] Comment: For adults, a slight decrease in the calculated MCHC value (in the range of 30 to 32 g/dL) is most likely not clinically significant; however, it should be interpreted with caution in correlation with other red cell parameters and the patient's clinical condition. RDW 12.3 11.0 - 15.0 % [facility] Platelet Count 223 140 - 400 Thousand/u L [facility] MPV 9.2 7.5 - 12.5 fL [facility] Neutrophil Absolute 3170 1500 - 7800 cells/uL [facility] Lymphocytes Absolute 1250 850 - 3900 cells/uL [facility] Absolute Monocytes 390 200 - 950 cells/uL [facility] Eosinophils Absolute 170 15 - 500 cells/uL [facility] Basophils Absolute 20 0 - 200 cells/uL [facility] Granulocytes % 63.4 % [facility] Lymphocytes % 25.0 % [facility] Monocytes % 7.8 % [facility] Eosinophils % 3.4 % [facility] Basophils % 0.4 % [facility] Comment: Test Performed at: [employer] [address] [place] [address] AMIE MOSER MD Blood BLOOD SPECIMEN / Unknown 11/03/2024 6:13 AM OCCUPATIONAL THERAPY INSTRUCTOR 11/03/2024 6:14 AM OCCUPATIONAL THERAPY INSTRUCTOR Megha Berkowitz MD LAB - HEMATOLOGY ORD ERABLES [facility] [address] [place] [address] * (ABNORMAL) COMPREHENSIVE METABOLIC PANEL (11/03/2024 6:13 AM OCCUPATIONAL THERAPY INSTRUCTOR) Only the most recent of4 resultswithin the time period is included. Glucose 104(H) 65 - 99 mg/dL [facility] Comment: Fasting reference interval For someone without known diabetes, a glucose value between 100 and 125 mg/dL is consistent with prediabetes and should be confirmed with a follow-up test. BUN 15 7 - 25 mg/dL [facility] Creatinine 0.75 0.70 - 1.35 mg/dL [facility] eGFR by Cystatin C 100 > OR = 60 mL/min/1. 73m2 [facility] BUN/Creatinine Ratio SEE NOTE: 6 (calc) [facility] Comment: Not Reported: BUN and Creatinine are within reference range. Sodium 140 135 - 146 mmol/L [facility] Potassium 4.1 3.5 - 5.3 mmol/L [facility] Chloride 106 98 - 110 mmol/L [facility] CO2 30 20 - 32 mmol/L [facility] Calcium 8.9 8.6 - 10.3 mg/dL [facility] Protein Total 6.6 6.1 - 8.1 g/dL [facility] Albumin 4.2 3.6 - 5.1 g/dL [facility] Globulin Total 2.4 1.9 - 3.7 g/dL (calc) [facility] Albumin/Globulin Ratio 1.8 1.0 - 2.5 (calc) [facility] Bilirubin Total 0.4 0.2 - 1.2 mg/dL [facility] Alkaline Phosphatase 48 35 - 144 U/L [facility] AST 19 10 - 35 U/L [facility] ALT 21 9 - 46 U/L [facility] Comment: Test Performed at: [place] [address] AMIE MOSER MD Blood BLOOD SPECIMEN / Unknown 11/03/2024 6:13 AM OCCUPATIONAL THERAPY INSTRUCTOR 11/03/2024 6:14 AM OCCUPATIONAL THERAPY INSTRUCTOR Megha Berkowitz MD LAB - CHEMISTRY ORDAnuj ESPINAL Performing Organization Address [facility] de Phone Number [facility] [address] [place] [address] * CK BLOOD (11/03/2024 6:13 AM OCCUPATIONAL THERAPY INSTRUCTOR) Only the most recent of2 resultswithin the time period is included. Pathologist [facility] CK 57 44 - 196 U/L [facility] Comment: Test Performed at: [facility] [address] AMIE MOSER MD Blood BLOOD SPECIMEN / Unknown 11/03/2024 6:13 AM OCCUPATIONAL THERAPY INSTRUCTOR 11/03/2024 6:14 AM OCCUPATIONAL THERAPY INSTRUCTOR Megha Berkowitz MD LAB - CHEMISTRY ORDAnuj ESPINAL Performing Organization Address [facility] de Phone Number [facility] [id number] [place] [address] * COMPLEMENT C3 C4 PANEL (11/03/2024 6:13 AM OCCUPATIONAL THERAPY INSTRUCTOR) Only the most recent of2 resultswithin the time period is included. Pathologist [facility] Complement C3 116 82 - 185 mg/dL [facility] Complement C4 21 15 - 53 mg/dL [facility] Comment: Test Performed at: [place] [address] AMIE MOSER MD Blood BLOOD SPECIMEN / Unknown 11/03/2024 6:13 AM OCCUPATIONAL THERAPY INSTRUCTOR 11/03/2024 6:14 AM OCCUPATIONAL THERAPY INSTRUCTOR Megha Berkowitz MD LAB - CHEMISTRY DAMION ESPINAL [facility] [address] [place] [address] * ECHO COMPLETE (07/03/2023 9:52 AM CDT) BSA [id number] m2 [facility] RADIOLOGY LV biplane EF 69 52 - 72 % [facility] RADIOLOGY LV A2C EF 72 48 - 76 % [facility] RADIOLOGY LV A4C EF 67 46 - 74 % [facility] RADIOLOGY LVOT stroke vol 60.29 mL [facility] RADIOLOGY LV stroke vol 2D teich 46.878 ml [facility] RADIOLOGY LV stroke vol index A4C MOD 61.008 ml/m2 [facility] RADIOLOGY LV Stroke Index 2D Teich 24.29 mL/m2 [facility] RADIOLOGY LVIDd 4.09 4.2 - 5.8 cm [facility] RADIOLOGY LVIDs 2.69 2.5 - 4.0 cm [facility] RADIOLOGY IVSd 2D 0.709 0.6 - 1 cm [facility] RADIOLOGY LVPWd 0.72 cm [facility] RADIOLOGY Fractional Shortening 2D 33 28 - 44 % [facility] LV ESV BP 27.822 21 - 61 mL [facility] LV ESV index BP 14.0 11 - 31 mL/m2 [facility] LV ESV A2C 29.693 15 - 75 mL [facility] LV ESV index A2C 15.38 9 - 37 mL/m2 [facility] LV EDV BP 89.029 mL [facility] RADIOLOGY LV ESV A4C 24.488 22 - 78 mL [facility] LV ESV index A4C 12.69 12 - 40 mL/m2 [facility] LV EDV index BP 46.0 34 - 74 mL/m2 [facility] LV EDV A2C 87.23 59 - 175 mL [facility] RADI[facility]Y LV EDV index A2C 45.19 31 - 87 mL/m2 [facility] LV EDV A4C 90.701 mL [facility] RADIOLOGY LV ESV 2D 26.872 21 - 61 mL [facility] RADIOLOGY LV EDV index A4C 46.99 37 - 93 mL/m2 [facility] RADIOLOGY LV ESV index 2D 13.92 11 - 31 mL/m2 [facility] RADIOLOGY LV EDV 2D 73.751 62 - 150 mL [facility] RADIOLOGY LV EDV index 2D 38.21 34 - 74 mL/m2 [facility] RADIOLOGY LVOT diam 2.1 cm [facility] RADIOLOGY LVOT area 3.35 cm2 [facility] RADIOLOGY LV RWT 0.353 [facility] RADIOLOGY LV Dee A2C 7.671 cm [facility] RADIOLOGY LV Dee A4C 7.732 cm [facility] RADIOLOGY IVS/LVPW 0.983 [facility] RADIOLOGY LV mass 2D 109.43582 [id number] 96 - 200 g [facility] RADIOLOGY LV mass index 2D 60 50 - 102 g/m2 [facility] RADIOLOGY MV E pk clement 89.467 cm/s [facility] RADIOLOGY MV avg E/e' ratio 9.57 [facility] RADIOLOGY MV A pk clement 84.541 cm/s [facility] RADIOLOGY MV E A ratio 1.06 [facility] RADIOLOGY MV E' lateral clement 10.284 cm/s [facility] RADIOLOGY MV DT 205 ms [facility] RADIOLOGY MV E' septal clement 8.569 cm/s [facility] RADIOLOGY MV A duration 111 ms [facility] RAD[facility] MV E/e' septal 10.44 [facility] MV E/e' lateral 8.699 [facility] TR pk clement 261.8 cm/s [facility] P vein A clement 37.7 cm/s [facility] P vein A duration 103 ms [facility] P vein S/D ratio 1.91 [facility] LVOT pk clement 0.94 m/s [facility] LVOT mn clement 0.61 m/s [facility] LVOT mn grad 1.7 mmHg [facility] LVOT Cardiac Output 4.296 l/min [facility] LVOT Cardiac Index 2.23 l/min/m2 [facility] LA size 4.213 3.0 - 4.0 cm [facility] LA vol BP A-L 47.859 mL [facility] RV-dee basal diam 4.0 2.5 - 4.1 cm [facility] RV-dee longitudinal diam 7.5 5.9 - 8.3 cm [facility] RVIDd 3.6 cm [facility] RVOT VTI 11.859 cm [facility] TAPSE 2.238 1.7 cm [facility] RVOT pk clement 0.62 m/s [facility] RA area 14.753 cm2 [facility] AV mn grad 3 mmHg [facility] AV pk grad 5 mmHg SL RADIOLOGY AV mn clement 0.85 m/s [facility] AV pk clement 1.13 m/s [facility] AV VTI 20.746 cm [facility] LVOT pk grad 3.556 mmHg [facility] LVOT VTI 17.989 cm [facility] AV area cont VTI 2.9 cm2 [facility] AV area pk clement 2.8 cm2 [facility] AV Doppler clement index pk clement 0.838 [facility] LVOT stroke vol index 31.2 mL/m2 [facility] Dimensionless Index 0.867 [facility] MV decel slope 435.715 cm/s2 [facility] TV annulus 3.87 cm [facility] TR VTI 71.0 cm [facility] TR pk grad 27 mmHg [facility] RVOT mn grad 1 mmHg [facility] RVOT pk grad 2 mmHg [facility] FL pk clement 193.851 cm/s [facility] PV mn grad 1 mmHg [facility] PV pk clement 75.032 cm/s [facility] PV pk grad 2 mmHg [facility] PV VTI 13.872 cm [facility] PV mn clement 50.1 cm/s [facility] Ascending aorta 3.23 cm [facility] IVC size 1.6 cm [facility] Max Age Predicted HR 156 [facility] LA ESV A4C MOD Index 28 ml/m2 [facility] LA ESV A2C MOD Index 21 ml/m2 [facility] Target HR 133 [facility] [id number] 6.112 cm [facility] [id number] 6.515 cm [facility] LV stroke vol BP 61.207 mL [facility] LVIDs index 1.40 1.3 - 2.1 cm/m2 [facility] LV LVIDd index 2.12 2.2 - 3.0 cm/m2 [facility] AV area index 1.5 cm2/m2 [facility] Sinus of Valsalva 3.28 cm [facility] Sinus of valsalva index 1.698 cm/m2 [facility] LA vol BP 46 mL [facility] LA vol index 24.0 16 - 34 mL/m2 [facility] LA ESV INDEX (BP) 23.83 ml/m2 [facility] RV-dee mid diam 3.5 1.9 - 3.5 cm [facility] sPAP 30.4 mmHg [facility] RVSP 30.4 mmHg [facility] RAP 3.0 mmHg [facility] dPAP 18.0 mmHg [facility] Anatomical Region Laterality Modality Ultrasound Narrative 07/03/2023 1:28 PM CDT Left Ventricle: Left ventricle size is normal. Normal wall thickness. Ventricular mass is normal. Normal systolic function. EF by 2D Chacon biplane is 69%. Normal wall motion. Normal diastolic function. Right Ventricle: Right ventricle size is upper limits of normal. Normal systolic function. Tricuspid Valve: Mild regurgitation. The pulmonary artery systolic pressure is normal (under 35 mmHg). Estimated RVSP is 30.4 mmHg. Left Ventricle Left ventricle size is normal. Normal wall thickness. Ventricular mass is normal. Normal systolic function. EF by 2D Chacon biplane is 69%. Normal wall motion. Normal diastolic function. Right Ventricle Right ventricle size is upper limits of normal. Normal systolic function. Left Atrium Left atrium size is normal. Left atrium volume index is 24.0 mL/m2. Right Atrium Right atrium size is normal. IVC/SVC IVC diameter is less than or equal to 21 mm and decreases greater than 50% during inspiration; therefore the estimated right atrial pressure is normal (~3 mmHg). Mitral Valve Valve structure is normal. No restricted motion. Mild regurgitation. No stenosis. Tricuspid Valve Valve structure is normal. No restricted motion. Mild regurgitation. The pulmonary artery systolic pressure is normal (under 35 mmHg). Estimated RVSP is 30.4 mmHg. No stenosis. Aortic Valve Valve structure is trileaflet. No restricted motion. No regurgitation. No stenosis. AV mean gradient is 3 mmHg. AV peak velocity is 1.13 m/s. AV area by continuity VTI is 2.9 cm2. Pulmonic Valve Not well visualized, but appears grossly normal. Trace regurgitation. No stenosis. Ascending Aorta Normal sized sinus of Valsalva (aortic root) and ascending aorta. Sinus of Valsalva is 3.28 cm. Ascending Aorta is 3.23 cm. Sinus of Valsalva indexed to BSA is 1.698 cm/m2. Pericardium No pericardial effusion. Study Details Study quality was good. A complete 2D, color Doppler, spectral Doppler and M- mode echocardiogram was performed. The apical, parasternal and subcostal views were obtained. Patient exhibited sinus rhythm. Prior Study No prior study available for comparison. Procedure Note Nika Christie MD - 07/03/2023 Left Ventricle: Left ventricle size is normal. Normal wall thickness.Ventricular mass is normal. Normal systolic function. EF by 2D Simpsonbiplane is 69%. Normal wall motion. Normal diastolic function. Right Ventricle: Right ventricle size is upper limits of normal. Normalsystolic function. Tricuspid Valve: Mild regurgitation. The pulmonary artery systolicpressure is normal (under 35 mmHg). Estimated RVSP is 30.4 mmHg. Chino Graham MD ECHO CUPID * COMPLETE PFT W/WO BRONCHODILATOR (07/03/2023 9:19 AM CDT) Impressions [facility] - 07/03/2023 9:19 AM CDT [facility] DEPARTMENT OF PULMONARY, CRITICAL CARE, AND SLEEP MEDICINE PULMONARY FUNCTION TEST Please see technologist's comments mentioned in the report. INTERPRETATION: SPIROMETRY: FVC: normal. FEV1: increased. FEV1/FVC ratio is normal. BRONCHODILATOR RESPONSE: There is no significant response to bronchodilator therapy, however this does not mean the patient would not benefit from bronchodilator therapy. FLOW-VOLUME LOOPS: Inspection of the flow-volume loops shows normal flow-volume loops. LUNG VOLUMES: Lung volumes by body plethysmography are normal. DIFFUSION CAPACITY DLCO: Unadjusted for Hb and COHb is increased. AIRWAY RESISTANCE The airway resistance is decreased and the specific conductance is increased. ARTERIAL BLOOD GAS ANALYSIS: Not performed. IMPRESSION: 1. Normal spirometry and lung volumes. 2. There is increased uncorrected DLCO. 3. Airway resistance is decreased and the specific conductance is increased. 4. No significant bronchodilator response, however this does not preclude the use of bronchodilators. 5. There is no previous study available for comparison. Bob Milligan DO Pulmonary & Critical Care Fellow Division of Pulmonary, Critical Care, and Sleep Medicine [facility] I have personally reviewed pulmonary function test data and finding. I concur with fellow's note. Doris Tse MD Narrative [facility] - 07/03/2023 9:19 AM CDT Bob Milligan DO 07/05/2023 3:23 PM Chino Graham MD RESPIRATORY THERAPY ORDERABLES [place] [id number] [address] * VITAMIN D 25-HYDROXY (05/01/2023 2:13 PM CDT) Vitamin D, 25 Hydroxy 43.7 30.0 - 100.0 ng/mL [facility] INSURANCE BILL Comment: Vitamin D deficiency has been defined by the [place] of Medicine and an Endocrine Society practice guideline as a level of serum 25-OH vitamin D less than 20 ng/mL (1,2). The Endocrine Society went on to further define vitamin D insufficiency as a level between 21 and 29 ng/mL (2). 1. IOM ([place] of Medicine). 2010. Dietary reference intakes for calcium and D. [place]: The National Academies Press. 2. Rayo MF, Jakub NC, Liza GIBBS, et al. Evaluation, treatment, and prevention of vitamin D deficiency: an Endocrine Society clinical practice guideline. JCEM. 2010; 96(7):1911-30. Blood BLOOD SPECIMEN / Unknown 05/01/2023 2:13 PM CDT 05/01/2023 Narrative Resulting Agency Comment Lab Testing performed at: [facility] [address] [facility] [phone] Megha Berkowitz MD LAB - CHEMISTRY DAMION ESPINAL [facility] INSURANCE BILL [address] [place] [address] * DEXA BONE DENSITY AXIAL SKELETON (04/25/2023 9:51 AM CDT) Anatomical Region Laterality Modality Mammography 04/25/2023 10:0 2 AM CDT Narrative 04/25/2023 10:04 AM CDT PROCEDURE: DEXA BONE DENSITY AXIAL SKELETON, DATE/TIME OF EXAM: 04/25/2023 9:51 AM, LOCATION [facility] INDICATION: M85.80: Other specified disorders of bone density and structure, unspecified site ADDITIONAL CLINICAL INFORMATION: Ordering Provider Reason For Exam: Technologist Note: Additional: COMPARISON: None. INDICATION: Male patient. Family history of osteoporosis or fracture. Taking thyroid medication and hormonal replacement. Rheumatoid arthritis. The average bone mineral density from L1 to L4 is1.250 g/cm2. T-score is 0.1. Z-score is 0.7. The average bone mineral density of the total left hip is 0.798 g/cm2. T-score is -2.1. Z-score is -1.5. Bone density at left femoral neck is 0.783 g/sq cm with T score -2.2 and Z score -1.1. ASSESSMENT: Bone density is low. Treatment, if not are being done, should be started. A follow-up DEXA test is recommended in one year to monitor response to therapy. With a Z score of -1.5, this patient's bone mineral density is low for someone of this age. WORLD HEALTH ORGANIZATION DEFINITIONS OSTEOPENIA = -1 TO -2.5 SD BELOW T-SCORE. OSTEOPOROSIS = LESS THAN -2.5 SD BELOW T-SCORE > Interpreting Provider: Krissy Andino MD on 04/25/2023 10:04 AM Procedure Note Krissy Andino MD - 04/25/2023 PROCEDURE: DEXA BONE DENSITY AXIAL SKELETON, DATE/TIME OF EXAM:04/25/2023 9:51 AM, LOCATION [facility] INDICATION: M85.80: Other specified disorders of bone density and structure, unspecified site ADDITIONAL CLINICAL INFORMATION: Ordering Provider Reason For Exam: Technologist Note: Additional: COMPARISON: None. INDICATION: Male patient. Family history of osteoporosis or fracture. Taking thyroid medication and hormonal replacement. Rheumatoidarthritis. The average bone mineral density from L1 to L4 is1.250 g/cm2. T-score is 0.1. Z-score is 0.7. The average bone mineral density of the total left hip is 0.798 g/cm2. T-score is -2.1. Z-score is -1.5. Bone density at left femoral neck is 0.783 g/sq cm with T score -2.2 andZ score -1.1. ASSESSMENT: Bone density is low. Treatment, if not are being done,should be started. A follow-up DEXA test is recommended in one year to monitor response to therapy. With a Z score of -1.5, this patient's bone mineral density is low for someone of this age. WORLD HEALTH ORGANIZATION DEFINITIONS OSTEOPENIA = -1 TO -2.5 SD BELOW T-SCORE. OSTEOPOROSIS = LESS THAN -2.5 SD BELOW T-SCORE > Interpreting Provider: Krissy Andino MD on 04/25/2023 10:04 AM Megha Berkowitz MD DEXA ORDERABLES * XR KNEE BILAT 3VW (03/16/2023 2:09 PM CDT) Anatomical Region Laterality Modality Lower Extremity Radiographic Vera ging 03/16/2023 2:33 PM CDT Narrative 03/16/2023 2:34 PM CDT PROCEDURE(s): XR KNEE BILAT 3VW DATE AND TIME OF EXAM(s): 03/16/2023 2:09 PM INDICATION(s): M25.561: Pain in right knee M25.562: Pain in left knee G89.29: Other chronic pain COMPARISON(s): None available. FINDINGS/IMPRESSION: No acute fracture or dislocation is seen. No significant osteoarthritic degenerative changes are seen. A single punctate metallic radiopaque focus is seen at the anteromedial right knee superior to the patella. The soft tissues are unremarkable. > Interpreting Provider: Ronny Fofana MD on 03/16/2023 2:34 PM Procedure Note Ronny Fofana MD - 03/16/2023 PROCEDURE(s): XR KNEE BILAT 3VW DATE AND TIME OF EXAM(s): 03/16/2023 2:09 PM INDICATION(s): M25.561: Pain in right knee M25.562: Pain in left knee G89.29: Other chronic pain COMPARISON(s): None available. FINDINGS/IMPRESSION: No acute fracture or dislocation is seen. No significant osteoarthritic degenerative changes are seen. A single punctate metallic radiopaquefocus is seen at the anteromedial right knee superior to the patella. The soft tissues are unremarkable. > Interpreting Provider: Ronny Fofana MD on 03/16/2023 2:34 PM Megha Berkowitz MD DIAGNOSTIC IMAGING O RDERABLES * FL POLYSOM 6/>YRS CPAP 4/> PARM (12/13/2022 9:41 AM OCCUPATIONAL THERAPY INSTRUCTOR) Narrative Song Guerra MD - 12/13/2022 9:41 AM OCCUPATIONAL THERAPY INSTRUCTOR Song Guerra MD 12/13/2022 9:41 AM [facility] Accredited by the [place] [employer] [facility], First Floor [address] [place] [address] Telephone : [phone] Medical Records Patient Name: Gilbert Dhillon : 1960 Date of Study: 12/12/2022 Referring Physician: Hi Baum DO Type of Montage: Respiratory Scoring System: [facility] FULL NIGHT THERAPEUTIC POLYSOMNOGRAM INTERPRETATION Procedure: The polysomnogram was performed with a technologist infectious disease in attendance. Central, occipital, and temporal EEG, EOG, submentalis, EMG, airflow via positive airway pressure, thoracoabdominal motion, anterior tibialis EMG, snore sensor, and pulse oximetry were monitored. Sleep stages, periodic limb movements, and EEG arousals were scored in 30-second epochs according to the AASM Scoring Manual. Apnea-hypopnea index was calculated using the recommended definition of hypopnea for scoring events. Data acquisition, collection, and scoring have been validated and clinically correlated. Sleep History: Mr. Gilbert Dhillon, a 62 year old male, was referred to the Sleep Disorders Clinic by Hi Baum DO for the evaluation of obstructive sleep apnea (BOGDAN). Current Outpatient Medications: ASPIRIN 81 PO, , Disp: , Rfl: atorvastatin (LIPITOR) 40 MG tablet, Take 40 mg by mouth once daily, Disp: , Rfl: B-D ULTRAFINE III SHORT PEN 31G X 8 MM needle, USE FIVE TIMES DAILY DIRECTED WITH INJECTIONS, Disp: , Rfl: Continuous Blood Gluc Sensor (DEXCOM G6 SENSOR) MISC, REPLACE EVERY 10 DAYS, Disp: , Rfl: cyanocobalamin (VITAMIN B-12) 100 MCG tablet, , Disp: , Rfl: dextroamphetamine (DEXEDRINE) 10 MG tablet, Take 10 mg by mouth once daily, Disp: , Rfl: empagliflozin (JARDIANCE) 25 MG tablet, 25 mg once daily, Disp: , Rfl: eszopiclone (Lunesta) 3 MG tablet, Take 3 mg by mouth as needed, Disp: , Rfl: hydroCHLOROthiazide (HYDRODIURIL) 12.5 MG, Take 12.5 mg by mouth once daily, Disp: , Rfl: ibuprofen (MOTRIN) 600 MG tablet, Take 600 mg by mouth every 6 hours as needed for Pain, Disp: , Rfl: insulin aspart (NOVOLOG) vial, , Disp: , Rfl: levothyroxine (SYNTHROID) 125 MCG tablet, Take 125 mcg by mouth once daily, Disp: , Rfl: losartan (COZAAR) 100 MG tablet, Take 100 mg by mouth once daily, Disp: , Rfl: metFORMIN ER 24hr (GLUCOPHAGE XR) 500 MG tablet, TK 1 T PO WITH BREAKFAST AND SUPPER D, Disp: , Rfl: modafinil (PROVIGIL) 200 MG tablet, Take 200 mg by mouth once daily, Disp: , Rfl: Mounjaro 5 MG/0.5ML injection, , Disp: , Rfl: sildenafil (Revatio) 20 MG tablet, TAKE 1 TABLET BY MOUTH THREE TIMES DAILY NEEDED, Disp: 90 tablet, Rfl: 2 testosterone (ANDROGEL) 20.25 MG/ACT (1.62%) gel, Apply 3 Pump to affected area once daily, Disp: , Rfl: TRESIBA FLEXTOUCH 200 UNIT/ML pen, INJECT 18 UNITS UNDER THE SKIN EVERY MORNING, Disp: , Rfl: THERAPEUTIC STUDY Sleep Architecture: During this therapeutic study, the patient was monitored from 11:14 pm to 6:29 am. The patient slept for 349 minutes and had decreased sleep efficiency of 59.6%. The patient's initial sleep latency was reduced at 2.5 minutes. The initial REM latency was slightly reduced at 49.5 minutes. The sleep architecture was as follows: stage N1: 8.6%; stage N2: 34.6%; stage N3: 36.4%; stage REM: 20.4%. Respiratory Analysis, Oximetry Data, and Snoring Profile: Continuous positive airway pressure (CPAP) was titrated from a minimum setting of 9 cmH2O to a maximum setting of 14 cmH2O. CPAP at 12 cmH2O was associated with a normal overall apnea-hypopnea index of 0 per hour and an increased respiratory-related arousal index of 9.6 per hour. CPAP at the maximal level of 14 cmH2O was associated with a normal overall apnea-hypopnea index of 0 per hour and an increased respiratory-related arousal index of 14.8 per hour. No snoring was detected at the higher CPAP levels. The patient had a normal minimum oxygen saturation of 93% during REM sleep and a normal minimum oxygen saturation of 92% during non-REM sleep. The time spent with oxygen saturation less than 90% was 0 minutes of the total therapeutic sleep time. Periodic limb movement index: The patient's periodic limb movement index was within normal limits at 0 per hour. EEG Profile: The patient's total arousal index on CPAP level of 12 cmH2O was within normal limits at 10.7 per hour. There was no epileptiform activity during sleep. Cardiac profile: EKG showed normal sinus rhythm. No clinically significant arrhythmia was noted. Parasomnia Profile: No parasomnia was noted during this therapeutic study. IMPRESSION: CPAP at the highest settings of 12-14 cmH2O was effective in ameliorating apneas and hypopneas but was associated with persistence of respiratory effort-related arousals. RECOMMENDATIONS: Consider further titration of CPAP beyond 14 cmH2O to ameliorate residual abnormal respiratory breathing events. Song Guerra MD, [facility], [facility], [facility] Substation Superintendent, [facility] Professor of Internal Medicine Adjunct Agency Sales Director of Neurology Division of Pulmonary, Critical Care, and Sleep Medicine [facility] This note was electronically signed on 12/13/2022. CC: Hi Baum DO [address] [place] [address] Hi Baum DO Shauna A Dettenmeier APNP-VICE CHAIRMAN PROCEDUR E/MINOR SURGICAL ORDERABLES * (ABNORMAL) KELLY STAINING PATTERNS REFLEXED (05/12/2022 2:24 PM CDT) Speckled Pattern 1:320(A) <1:80 [facility] ACCOUNT BILL Comment: Methodology: Indirect Immunofluorescence Assay (IFA) utilizi ng Hep-2-Gamma cells. 05/12/2022 2:24 PM CDT 05/12/2022 Narrative Resulting Agency Comment Lab Testing performed at: [facility] [place] [address] [facility] [phone] Megha Berkowitz MD LAB - PATHOLOGY/CYTO LOGY ORDERABLES Performing Organization Address City/[facility] Co de Phone Number [facility] ACCOUNT BILL [address] [place] [address] * (ABNORMAL) MINI BLOOD SCREEN W/REFLEX TITER (05/12/2022 2:24 PM CDT) Pathologist [facility] MINI Positive (A) Negative [facility] ACCOUNT BILL Comment: Methodology: Indirect Immunofluorescence Assay (IFA) emmanuel rivera Hep-2-Gamma cells. Blood BLOOD SPECIMEN / Unknown 05/12/2022 2:24 PM CDT 05/12/2022 Narrative Resulting Agency Comment Lab Testing performed at: [facility] [place] [address] [place] [phone] Megha Berkowitz MD LAB - CHEMISTRY DAMION ESPINAL Performing Organization Address City/[facility] Co de Phone Number [facility] ACCOUNT BILL [address] [place] [address] * IMMUNOGLOBULINS IGG/IGM/IGA PANEL (05/12/2022 2:24 PM CDT) Pathologist [facility] IgG Quantitative 1,183 603 - 1,613 mg/dL [facility] ACCOUNT BILL IgA Quantitative 189 61 - 437 mg/dL [facility] ACCOUNT BILL IgM Quantitative 46 20 - 172 mg/dL [facility] ACCOUNT BILL Blood BLOOD SPECIMEN / Unknown 05/12/2022 2:24 PM CDT 05/12/2022 Narrative Resulting Agency Comment [facility]: [facility] [address] [facility] [phone] Megha Berkowitz MD LAB - CHEMISTRY DAMION ESPINAL Performing Organization Address City/[facility] Co de Phone Number [facility] ACCOUNT BILL [address] [place] [address] * (ABNORMAL) EARLY SJOGREN'S SYNDROME PROFILE (02/22/2021 3:06 PM CDT) Pathologist [facility] Salivary Protein 1 Antibody IgG 43.3(A) EU/ml [facility] ACCOUNT BILL Comment: Reference Range: Negative:< 20 EU/ml Borderline:20-25 EU/ml Positive:> 25 EU/ml Salivary Protein 1 Antibody IgA 15.9 EU/ml [facility] ACCOUNT BILL Comment: Reference Range: Negative:< 20 EU/ml Borderline:20-25 EU/ml Positive:> 25 EU/ml Salivary Protein 1 Antibody IgM 19.3 EU/ml [facility] ACCOUNT BILL Comment: Reference Range: Negative:< 20 EU/ml Borderline:20-25 EU/ml Positive:> 25 EU/ml Carbonic Anhydrase Antibody IgG 11.2 EU/ml [facility] ACCOUNT BILL Comment: Reference Range: Negative:< 20 EU/ml Borderline:20-25 EU/ml Positive:> 25 EU/ml Carbonic Anhydrase Antibody IgA <1.0 EU/ml [facility] ACCOUNT BILL Comment: Reference Range: Negative:< 20 EU/ml Borderline:20-25 EU/ml Positive:> 25 EU/ml Carbonic Anhydrase Antibody IgM 8.5 EU/ml [facility] ACCOUNT BILL Comment: Reference Range: Negative:< 20 EU/ml Borderline:20-25 EU/ml Positive:> 25 EU/ml Parotid Specific Protein Antibody IgG 13.7 EU/ml [facility] ACCOUNT BILL Comment: Reference Range: Negative:< 20 EU/ml Borderline:20-25 EU/ml Positive:> 25 EU/ml Parotid Specific Protein Antibody IgA 4.6 EU/ml [facility] ACCOUNT BILL Comment: Reference Range: Negative:< 20 EU/ml Borderline:20-25 EU/ml Positive:> 25 EU/ml Parotid Specific Protein Antibody IgM 7.7 EU/ml [facility] ACCOUNT BILL Comment: Reference Range: Negative:< 20 EU/ml Borderline:20-25 EU/ml Positive:> 25 EU/ml The novel antibodies salivary gland protein 1 (SP-1), carbonic anhydrase 6 (CA ) and parotid secretory protein (PSP) have shown to be present in animal models for Sjogren's syndrome (SS) and patients with the disease. The antibodies SP-1, CA and PSP occurred earlier in the course of the disease than antibodies to Ro or La. These antibodies were found in 45% of patients meeting the criteria for SS who lacked antibodies to Ro or La. Furthermore, in patients with idiopathic xerostomia and xerophthalmia for less than 2 years, 76% had antibodies to SP-1 and/or CA while only 31% had antibodies to Ro or La. Antibodies to SP-1, CA and PSP may be useful markers for identifying patients with SS at early stages of the disease or those that lack antibodies to either Ro or La. The presence of the antibodies to SP-1, CA and PSP should be correlated with clinical (dry mouth, dry eyes), serological (Ro, La, MINI, RF) and histological (positive lymphocytic focus scores) findings in establishing a definitive diagnosis for SS. Kaylin Sexton et al. (2010). A role of lymphotxin in primary sjogren's syndrome. J Immunol; 185: 7064-4370. Barber Sexton. et al. (2012). Novel autoantibodies in Sjogren's syndrome. Clinical Immunology;145, 251-255. *This test has been developed and performance parameters have been validated by Victoria Plumb, [employer]. This test has not been approved by the U.S. Food and Drug Administration (FDA); however, FDA approval is not required for clinical use. It is not intended that clinical diagnosis and patient management decisions be made using these results alone. This test has been validated using serum samples. The chief underwriter has not determined the efficacy of this test when performed on CSF, plasma, joint or pleural fluid specimens. The performance characteristics of this test were determined by [employer]. Blood BLOOD SPECIMEN / Unknown 02/22/2021 3:06 PM CDT 02/22/2021 Narrative Resulting Agency Comment Lab Testing performed at: [email or web address] [address] [place] [address] [id number] Megha Berkowitz MD LAB - SEROLOGY ORDER SAIMA [facility] ACCOUNT BILL [address] [place] [address] * MUSK ANTIBODY (02/22/2021 3:06 PM CDT) MuSK Antibody <1.0 U/mL [facility] ACCOUNT BILL Comment: Reference Range: Negative: <1.0 Positive: 1.0 or higher A positive result, in the context of congruent clinical findings, confirms the diagnosis of autoimmune MuSK myasthenia gravis. COMMENTS: - Myasthenia gravis (MG) is caused by auto-antibodies against proteins of the neuromuscular junction. Most cases (about 90%) of generalized MG are anti- acetylcholine receptor (AChR) antibody-positive.(1) - Of generalized MG patients who lack anti-AChR antibodies (AChR-seronegative), about 40% are positive for Muscle- Specific Kinase (MuSK) antibody.(1,2) - Though a positive MuSK result is specific for the diagnosis of MuSK MG, a negative MuSK result does not rule out a MG diagnosis. - MuSK antibody levels have been shown to correlate with disease severity.(3) Serial measurements may be useful to follow treatment. References: 1. Natalieih-Zuleiman S et al. J Autoimmunity 2014;52:90-100. 2. Chuck REEVES et al. PNAS 2013;110(92);96226-24702. 3. Leila E et al. Neurology 2006;67:505-507. This test was developed and its performance characteristics determined by [employer]. It has not been cleared or approved by the Food and Drug Administration. Blood BLOOD SPECIMEN / Unknown 02/22/2021 3:06 PM CDT 02/22/2021 Narrative Resulting Agency Comment Lab Testing performed at: [employer] [address] [place] [address] [phone] Megha Berkowitz MD LAB - CHEMISTRY DAMION ESPINAL [facility] ACCOUNT BILL [address] [place] [address] * ACETYLCHOLINE RECEPTOR ANTIBODY PANEL (02/22/2021 3:06 PM CDT) Acetylcholine Binding Antibody <0.03 0.00 - 0.24 nmol/L [facility] ACCOUNT BILL Comment: Negative: 0.00 - 0.24 Borderline: 0.25 - 0.40 Positive: >0.40 Acetylcholine Blocking Antibody 11 0 - 25 % [facility] ACCOUNT BILL Comment: Negative: 0 - 25 Borderline: 26 - 30 Positive: >30 Acetylcholine Modulating Antibody <12 0 - 20 % [facility] ACCOUNT BILL Comment: Negative: <21 Equivocal: 21 - 25 Positive: >25 Blood BLOOD SPECIMEN / Unknown 02/22/2021 3:06 PM CDT 02/22/2021 Narrative [facility] ACCOUNT BILL - 02/25/2021 3:08 PM CDT Test(s) [id number] Blocking Abs, Serum results are labeled for research purposes only by the assay's chief underwriter. The performance characteristics of this assay have not been established by the chief underwriter. The result should not be used for treatment or for diagnostic purposes without confirmation of the diagnosis by another medically established diagnostic product [facility]. Resulting Agency Comment Lab Testing performed at: [employer] [address] [phone] Megha Berkowitz MD LAB - SEROLOGY ORDER SAIMA [facility] ACCOUNT BILL [address] [place] [address] * PROTEIN ELECTROPHORESIS BLOOD (02/22/2021 3:06 PM CDT) Protein Total 7.8 6.0 - 8.5 g/dL [facility] ACCOUNT BILL Albumin 4.3 2.9 - 4.4 g/dL [facility] ACCOUNT BILL Alpha-1 Globulin 0.3 0.0 - 0.4 g/dL [facility] ACCOUNT BILL Zgdet-3-Papuoarc 0.8 0.4 - 1.0 g/dL [facility] ACCOUNT BILL Beta-Globulin 1.1 0.7 - 1.3 g/dL [facility] ACCOUNT BILL Gamma Globulin 1.3 0.4 - 1.8 g/dL [facility] ACCOUNT BILL M-Jorge Not Observed Not Observed g/dL [facility] ACCOUNT BILL Globulin Total 3.5 2.2 - 3.9 g/dL [facility] ACCOUNT BILL Albumin/Globulin Ratio 1.2 0.7 - 1.7 [facility] ACCOUNT BILL Please Note [facility] ACCOUNT BILL Comment: Protein electrophoresis scan will follow via computer, mail, or custom marine canvas fabricator delivery. P E Interpretation, S [facility] ACCOUNT BILL Comment: The SPE pattern appears unremarkable. Evidence of monoclonal protein is not apparent. Blood BLOOD SPECIMEN / Unknown 02/22/2021 3:06 PM CDT 02/22/2021 Narrative Resulting Agency Comment Lab Testing performed at: [employer] [place] [address] [facility] [phone] Megha Berkowitz MD LAB - CHEMISTRY ORDE RABLES [facility] ACCOUNT BILL [address] [place] [address] * URINALYSIS MICROSCOPIC ONLY REFLEXED (02/22/2021 3:05 PM CDT) WBC UA None seen 0 - 5 /hpf [facility] ACCOUNT BILL RBC UA None seen 0 - 2 /hpf [facility] ACCOUNT BILL Epithelial Cells (non renal) None seen 0 - 10 /hpf [facility] ACCOUNT BILL Epithelial Cells (renal) NOT NEEDED [facility] ACCOUNT BILL Comment:Ancillary determined the test is not needed. Casts ua None seen None seen /lpf [facility] ACCOUNT BILL Casts UA NOT NEEDED [facility] ACCOUNT BILL Comment:Ancillary determined the test is not needed. Crystals UA NOT NEEDED [facility] ACCOUNT BILL Comment:Ancillary determined the test is not needed. Crystals UA NOT NEEDED [facility] ACCOUNT BILL Comment:Ancillary determined the test is not needed. Mucus UA NOT NEEDED [facility] ACCOUNT BILL Comment:Ancillary determined the test is not needed. Bacteria UA None seen None seen/Few [facility] ACCOUNT BILL Yeast UA NOT NEEDED [facility] ACCOUNT BILL Comment:Ancillary determined the test is not needed. Trichomonas UA NOT NEEDED [facility] ACCOUNT BILL Comment:Ancillary determined the test is not needed. Comment Urine NOT NEEDED [facility] ACCOUNT BILL Comment:Ancillary determined the test is not needed. 02/22/2021 3:05 PM CDT 02/22/2021 Narrative Resulting Agency Comment Lab Testing performed at: [facility] [place] [address] [facility] [phone] Megha Berkowitz MD LAB - URINALYSIS ORD ERABLES [facility] ACCOUNT BILL [address] [place] [address] * CYCLIC CITRUL PEPTIDE ANTIBODY IGG/IGA (CCP) (02/22/2021 3:05 PM CDT) CCP Antibodies IgG/IgA 4 0 - 19 units [facility] ACCOUNT BILL Comment: Negative <20 Weak positive 20 - 39 Moderate positive 40 - 59 Strong positive >59 Blood BLOOD SPECIMEN / Unknown 02/22/2021 3:05 PM CDT 02/22/2021 Narrative Resulting Agency Comment Lab Testing performed at: [facility] [address] [id number] Megha Berkowitz MD LAB - SEROLOGY ORDER SAIMA Performing Organization Address City/[facility]/ZIP Co de Phone Number [facility] ACCOUNT BILL [address] [place] [address] * (ABNORMAL) URINALYSIS REFLEX MICROSCOPIC REFLEX CULTURE (02/22/2021 3:05 PM CDT) Specific [place] UA >=1.030(A) 1.005 - 1.030 [facility] ACCOUNT BILL pH UA 6.0 5.0 - 7.5 [facility] ACCOUNT BILL Color UA Yellow Yellow [facility] ACCOUNT BILL Appearance Clear Clear [facility] ACCOUNT BILL Leukocyte UA Negative Negative [facility] ACCOUNT BILL Protein UA Negative Negative/Tra ce [facility] ACCOUNT BILL Glucose UA 3+(A) Negative [facility] ACCOUNT BILL Ketone UA Negative Negative [facility] ACCOUNT BILL Occult Blood Urine Negative Negative [facility] ACCOUNT BILL Bilirubin UA Negative Negative [facility] ACCOUNT BILL Urobilinogen 0.2 0.2 - 1.0 mg/dL [facility] ACCOUNT BILL Nitrite UA Negative Negative [facility] ACCOUNT BILL Microscopic Examination Urine [facility] ACCOUNT BILL Comment:Microscopic follows if indicated. Microscopic Examination Urine See below: [facility] ACCOUNT BILL Comment:Microscopic was gloria cated and was performed. Urinalysis Reflex [facility] ACCOUNT BILL Comment:This specimen will n ot reflex to a Urine Culture. Urine URINE SPECIMEN OBTAINED BY CLEAN CATCH PROCEDURE / Unknown 02/22/2021 3:05 PM CDT 02/22/2021 Narrative Resulting Agency Comment Lab [facility] performed [facility]: [facility] [address] [facility] [phone] Megha Berkowitz MD LAB - URINALYSIS ORD ERABLES Performing Organization Address City/[facility]/ZIP Co de Phone Number [facility] ACCOUNT BILL [address] [place] [address] * (ABNORMAL) CARDIOLIPIN ANTIBODY IGG/IGM PANEL (02/22/2021 3:05 PM CDT) Cardiolipin Antibody IgG <9 0 - 14 GPL U/mL [facility] ACCOUNT BILL Comment: Negative: <15 Indeterminate: 15 - 20 Low-Med Positive: >20 - 80 High Positive: >80 Cardiolipin Antibody IgM 17(H) 0 - 12 MPL U/mL [facility] ACCOUNT BILL Comment: Negative: <13 Indeterminate: 13 - 20 Low-Med Positive: >20 - 80 High Positive: >80 Blood BLOOD SPECIMEN / Unknown 02/22/2021 3:05 PM CDT 02/22/2021 Narrative Resulting Agency Comment Lab Testing performed at: [facility] [place] [id number] [facility] [phone] Megha Berkowitz MD LAB - SEROLOGY ORDER SAIMA Performing Organization Address City/[facility]/ZIP Co de Phone Number [facility] ACCOUNT BILL [address] [place] [address] * LUPUS ANTICOAGULANT PANEL W RFLX (02/22/2021 3:05 PM CDT) Pathologist [facility] PTT-LA 29.5 0.0 - 51.9 sec [facility] ACCOUNT BILL dRVVT 34.2 0.0 - 47.0 sec [facility] ACCOUNT BILL Interpretation Comment: [facility] ACCOUNT BILL Comment:No lupus anticoagula nt was detected. Blood BLOOD SPECIMEN / Unknown 02/22/2021 3:05 PM CDT 02/22/2021 Narrative Resulting Agency Comment Lab Testing performed at: [facility] [phone] Megha Berkowitz MD LAB - HEMATOLOGY ORD ERABLES [facility] ACCOUNT BILL [address] [place] [address] * RHEUMATOID FACTOR BLOOD QUANTITATIVE (02/22/2021 3:05 PM CDT) Pathologist [facility] Rheumatoid Factor <15 <30 IU/mL [facility] ACCOUNT BILL Blood BLOOD SPECIMEN / Unknown 02/22/2021 3:05 PM CDT 02/22/2021 Narrative Resulting Agency Comment Lab Testing performed at: [place] [address] [place] [phone] Megha Berkowitz MD LAB - CHEMISTRY DAMOIN ESPINAL Performing Organization Address City/[facility]/ZIP Co de Phone Number [facility] ACCOUNT BILL [address] [place] [address] * BETA-2 GLYCOPROTEIN 1 ANTIBODY IGG/IGM PANEL (02/22/2021 3:05 PM CDT) Beta-2 Glycoprotein I Antibody IgG <9 0 - 20 GPI IgG units [facility] ACCOUNT BILL Comment: The reference interval reflects a 3SD or 99th percentile interval, which is thought to represent a potentially clinically significant result in accordance with the International Consensus Statement on the classification criteria for definitive antiphospholipid syndrome (APS). J Thromb Haem 2006;4:295-306. Beta-2 Glycoprotein I Antibody IgM <9 0 - 32 GPI IgM units [facility] ACCOUNT BILL Comment: The reference interval reflects a 3SD or 99th percentile interval, which is thought to represent a potentially clinically significant result in accordance with the International Consensus Statement on the classification criteria for definitive antiphospholipid syndrome (APS). J Thromb Haem 2006;4:295-306. Blood BLOOD SPECIMEN / Unknown 02/22/2021 3:05 PM CDT 02/22/2021 Narrative Resulting Agency Comment Lab Testing performed at: [address] [phone] Megha Berkowitz MD LAB - CHEMISTRY DAMION ESPINAL Performing Organization Address City/[facility]/ZIP Co de Phone Number [facility] ACCOUNT BILL [address] [place] [address] * SCLERODERMA 70 (SCL) ANTIBODY (02/22/2021 3:05 PM CDT) Antiscleroderma -70 Antibody <0.2 0.0 - 0.9 AI [facility] ACCOUNT BILL Blood BLOOD SPECIMEN / Unknown 02/22/2021 3:05 PM CDT 02/22/2021 Narrative Resulting Agency Comment Lab Testing performed at: [facility] [address] [facility] [phone] Megha Berkowitz MD LAB - CHEMISTRY ORDE RABLES [facility] ACCOUNT BILL [address] [place] [address] * DNA ANTIBODY DOUBLE STRANDED (02/22/2021 3:05 PM CDT) Anti-dsDNA Quantitative 1 0 - 9 IU/mL [facility] ACCOUNT BILL Comment: Negative <5 Equivocal 5 - 9 Positive >9 Blood BLOOD SPECIMEN / Unknown 02/22/2021 3:05 PM CDT 02/22/2021 Narrative Resulting Agency Comment Lab Testing performed at: [facility] [place] [address] [facility] [phone] Megha Berkowitz MD LAB - HEMATOLOGY ORD ERABLES Performing Organization Address City/[facility]/ZIP Co de Phone Number [facility] ACCOUNT BILL [address] [place] [address] * (ABNORMAL) PROTEIN CREATININE RATIO URINE RANDOM PNL (02/22/2021 3:05 PM CDT) Creatinine Urine 34.7 Not Estab. mg/dL [facility] ACCOUNT BILL Protein Urine <4.0 Not Estab. mg/dL [facility] ACCOUNT BILL Comment:Verified by repeat analysis Protein/Creatinin e Ratio (A) 0 - 200 mg/g creat [facility] ACCOUNT BILL Comment: This result is below the assay's limit of quantitation indicating a dilute specimen, potentially due to diurnal variation. Consider recollection at a time likely to provide a more concentrated urine. Urine URINE SPECIMEN OBTAINED BY CLEAN CATCH PROCEDURE / Unknown 02/22/2021 3:05 PM CDT 02/22/2021 Narrative Resulting Agency Comment Lab Testing performed at: [facility] [place] [address] [facility] [phone] Megha Berkowitz MD LAB - URINE CHEMISTR Y ORDERABLES [facility] ACCOUNT BILL [address] [place] [address] * VITAMIN B12 (02/22/2021 3:05 PM CDT) Vitamin B12 428 213 - 816 pg/mL [facility] ACCOUNT BILL Blood BLOOD SPECIMEN / Unknown 02/22/2021 3:05 PM CDT 02/22/2021 Narrative Resulting Agency Comment Lab Testing performed at: [address] [place] [phone] Megha Berkowitz MD LAB - CHEMISTRY DAMION ESPINAL [facility] ACCOUNT BILL [address] [place] [address] Care Teams Assistant Store Leader Relationship Specialty Start Date End Date Mason Lewis MD [address] [place] [address] PCP - General Family Medicine 05/31/23
--- OUTSIDE RECORDS SUMMARY | 2024-12-29 18:24 | XMS_ITS | Referral Summary ---
Author Organization [facility] Address [address] [place] [address] Care Team Providers Care Door Opener Name Role Phone Mason Lewis MD Primary Care Provider [phone] Source Comments [facility],non-owned Affiliates and Associated Physician Practices is amultiple site organization consisting of ambulatory clinics and hospital sitesin [place], [place], [place] and [place]. This disclosure is being madepursuant to the Care Everywhere program and may not contain all informatio navailable regarding this patient. Last updated 18.[facility] Encounters Date Type Department Care Team Description 10/24/2024 Travel 10/24/2024 1:40 PM DIGITAL SALES ASSISTANT Office Visit [facility] - Rheumatology [address] [place], [place] [id number] Megha Berkowitz MD Raynaud's disease without gangrene (Primary Dx); Chronic pain of both knees; Fatigue, unspecified type; Pulmonary hypertension (HCC) from Last 3 Months Allergies No known active allergies Medications * Be aware that medications may not be up to date on this document. Alwaysverify current medications with the patient. Medication Sig Dispensed Refills Start Date End Date Status cyanocobalamin (VITAMIN B-12) 100 MCG tablet Active empagliflozin (JARDIANCE) 25 MG tablet 1 (one) tablet once daily Active TRESIBA FLEXTOUCH 200 UNIT/ML pen INJECT 18 UNITS UNDER THE SKIN EVERY MORNING 01/03/2021 Active B-D ULTRAFINE III SHORT PEN 31G X 8 MM needle USE FIVE TIMES DAILY DIRECTED WITH INJECTIONS 01/03/2021 Active modafinil (PROVIGIL) 200 MG tablet Take 1 (one) tablet by mouth once daily Active ASPIRIN 81 PO Active ibuprofen (MOTRIN) 600 MG tablet Take 1 (one) tablet by mouth every 6 hours as needed for Pain Active dextroamphetamine (DEXEDRINE) 10 MG tablet Take 1 (one) tablet by mouth once daily 09/20/2021 Active eszopiclone (Lunesta) 3 MG tablet Take 1 (one) tablet by mouth as needed 07/28/2022 Active ketoconazole (Nizoral) 2 % shampoo Apply to affected area once daily 120 mL 5 10/24/2024 Active Active Problems Problem Noted Date Diagnosed Date Eustachian tube dysfunction 08/01/2022 Overview (08/01/2022): Pt has no signs of pneumonia or sinusitis at this time. Asked him to return for f/c or concerns. Entex PSE and Robitussin given for symptomatic relief. Asked pt to f/u with Dr Lockwood for diabetes and hypothyroid f/u Male erectile disorder 08/01/2022 Psoriasis 08/01/2022 Syncope and collapse 10/11/2021 Inflammatory arthritis 09/26/2021 Atypical chest pain 08/12/2020 Dyspnea on exertion 08/12/2020 Hyperlipidemia associated with type 2 diabetes jasmine crooksitus 08/12/2020 BOGDAN (obstructive sleep apnea) 08/12/2020 Overview (02/27/2023): [facility] THERAPEUTIC STUDY Sleep Architecture: During this therapeutic [...] associated with persistence of respiratory effort-related arousals. 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 Osteopenia 08/19/2012 Type 2 diabetes mellitus 08/19/2012 Overview (08/01/2022): DMII WO CMP UNCNTRLD Immunizations Name Administration Dates Next Due Covid Moderna primary monova lent 12+ yr 0.5mL 09/11/2021,03/11/2021,02/09/2021 HEP A VACCINE, ADULT 09/11/1997 INFLUENZA VACCINE 09/13/1998,09/11/1997 MMR 07/08/1978 POLIO OPV 05/11/1979 SMALLPOX (VACCINIA) VACCINE, LIVE 03/12/1983 TYPHOID VACCINE 06/12/1988 Td (Adult), 2 Lf Tetanus Tox oid, Adsorbed, Pf 09/11/1997 Social History Tobacco Use Types Packs/Day Years [...] Comments Blood Pressure 137/66 10/24/2024 1:36 PM DIGITAL SALES ASSISTANT Pulse 74 10/24/2024 1:36 PM DIGITAL SALES ASSISTANT Temperature 36.4 C (97.5 F) 02/22/2021 2:08 PM CDT Respiratory Rate 18 01/18/2024 1:49 PM DIGITAL SALES ASSISTANT Oxygen Saturation 98% 01/18/2024 1:49 PM DIGITAL SALES ASSISTANT Inhaled Oxygen Concentration - - Weight 76.2 kg (168 lb) 10/24/2024 1:36 PM DIGITAL SALES ASSISTANT Height 170.2 cm (5' 7 ) 10/24/2024 1:36 PM DIGITAL SALES ASSISTANT Body Mass Index 26.31 10/24/2024 1:36 PM DIGITAL SALES ASSISTANT Plan of Treatment Not on file Procedures Procedure Name Priority Date/Time Associated Diagnosis Comments MINI BLOOD TITER 11/03/2024 6:13 AM DIGITAL SALES ASSISTANT MYOSITIS 11 ANTIBODY PNL Routine 11/03/2024 6:13 AM DIGITAL SALES ASSISTANT Pulmonary hypertension (HCC) CARDIOLIPIN ANTIBODY IGA/IGG/IGM PANEL Routine 11/03/2024 6:13 AM DIGITAL SALES ASSISTANT Chronic pain of both knees CK BLOOD Routine 11/03/2024 6:13 AM DIGITAL SALES ASSISTANT Chronic pain of both knees COMPLEMENT C3 C4 PANEL Routine 11/03/2024 6:13 AM DIGITAL SALES ASSISTANT Chronic pain of both knees MINI PANEL COMPREHENSIVE Routine 11/03/2024 6:13 AM DIGITAL SALES ASSISTANT Chronic pain of both knees C-REACTIVE PROTEIN Routine 11/03/2024 6: 13 AM DIGITAL SALES ASSISTANT Chronic pain of both knees ERYTHROCYTE SEDIMENTATION RATE Routine 11/03/2024 6:13 AM DIGITAL SALES ASSISTANT Chronic pain of both knees COMPREHENSIVE METABOLIC PANEL Routine 11/03/2024 6:13 AM DIGITAL SALES ASSISTANT Chronic pain of both knees CBC W AUTO DIFFERENTIAL Routine 11/03/2024 6:13 AM DIGITAL SALES ASSISTANT Chronic pain of both knees from Last 3 Months Results * MYOSITIS 11 ANTIBODY PNL (11/03/2024 6:13 AM DIGITAL SALES ASSISTANT) Marisol-1 Antibody <11 <[address] [facility] [address]-7 Antibody <11 <[address]-12 Antibody <11 <11 [facility] EJ Antibody <11 <11 [facility] OJ Antibody <11 <11 [facility] SRP Antibody <11 <11 [facility] IL-2 Alpha Antibody <11 <11 [facility] IL-2 Beta Antibody <11 <11 [facility] MDA-5 [...] with a rash. Additionally, MSAs to MDA5 ([id number]) have been identified in patients with clinically [...] analytical performance characteristics have been determined by [employer]. It has not been cleared or approved by the FDA. This assay has been validated pursuant to the CLIA regulations and is used for clinical purposes. Test Performed at: [facility] [address] [place] [address] PADMINI PETTY MD,PHD,JOYA Blood BLOOD SPECIMEN / Unknown 11/03/2024 6:13 AM DIGITAL SALES ASSISTANT 11/03/2024 6:14 AM DIGITAL SALES ASSISTANT Megha Berkowitz MD LAB - SEROLOGY ORDER [facility]IM[facility] [address] [place] [address] * CARDIOLIPIN ANTIBODY IGA/IGG/IGM PANEL (11/03/2024 6:13 AM DIGITAL SALES ASSISTANT) Cardiolipin Antibody IgA <2.0 APL-U/mL [facility] Comment: Value Interpretation ----- < 20.0 Antibody not detected > or = 20.0 Antibody detected Cardiolipin Antibody IgG <2.0 GPL-U/mL [facility] Comment: Value Interpretation ----- < 20.0 [...] aging. For additional information, please refer to http://education.CO-Value/faq/ESM610 (This link is being provided for informational/ educational purposes only.) Test Performed at: [facility] [address] LIZANDRO Emma MCGEE Blood BLOOD SPECIMEN / Unknown 11/03/2024 6:13 AM DIGITAL SALES ASSISTANT 11/03/2024 6:14 AM DIGITAL SALES ASSISTANT Megha Berkowitz MD LAB - SEROLOGY ORDER SAIMA [facility] [address] [place] [address] * (ABNORMAL) MINI PANEL COMPREHENSIVE (11/03/2024 6:13 AM DIGITAL SALES ASSISTANT) MINI Screen POSITIVE( A) NEGATIVE [facility] Comment: MINI IFA is a first line screen for detecting the presence of up to approximately 150 autoantibodies in various autoimmune diseases. A positive MINI IFA result is suggestive of autoimmune disease and reflexes to titer and pattern. Further laboratory testing may be considered if clinically indicated. For additional information, please refer to http://education.Zomazz/faq/BBJ805 (This link is being provided for informational/ educational purposes only.) dsDNA Antibody 1 IU/mL [facility] Comment: IU/mL Interpretation < or = 4 Negative 5-9 Indeterminate > or = 10 Positive SCL-70 Antibody <1.0 NEG <1.0 NEG AI [facility] SM Antibody <1.0 NEG <1.0 NEG AI [facility] SM/RENT AND HOUSING INVESTIGATOR Antibody <1.0 NEG <1.0 NEG AI [facility] Sjogren's Antibodies (SSA) <1.0 NEG <1.0 NEG AI [facility] Sjogren's Antibodies (SSB) <1.0 NEG <1.0 NEG AI [facility] Comment: Test Performed at: [place] [address] AMIE MOSER MD Blood BLOOD SPECIMEN / Unknown 11/03/2024 6:13 AM DIGITAL SALES ASSISTANT 11/03/2024 6:14 AM DIGITAL SALES ASSISTANT Megha Berkowitz MD LAB - SEROLOGY ORDER SAIMA Performing Organization Address [facility] [address]/[facility] [place] [address] * C-REACTIVE PROTEIN (11/03/2024 6:13 AM DIGITAL SALES ASSISTANT) Pathologist [facility] C-Reactive Protein <3.0 <8.0 mg/L [facility] Comment: Test Performed at: [facility] [place], [place] [address] AMIE MOSER MD Blood BLOOD SPECIMEN / Unknown 11/03/2024 6:13 AM DIGITAL SALES ASSISTANT 11/03/2024 6:14 AM DIGITAL SALES ASSISTANT Megha Berkowitz MD LAB - CHEMISTRY ORDE RABLES Performing Organization Address [facility] [place] [address] * (ABNORMAL) MINI BLOOD TITER (11/03/2024 6:13 AM DIGITAL SALES ASSISTANT) MINI 1:80(H) titer [facility] Comment: A low level MINI titer may be present in pre-clinical autoimmune diseases and normal individuals. Reference Range <1:40 Negative 1:40-1:80 Low Antibody Level >1:80 Elevated Antibody Level MINI Pattern Nuclear, Homogeneou s(A) [facility] Comment: Homogeneous pattern is associated with systemic lupus erythematosus (SLE), drug-induced lupus and juvenile idiopathic arthritis. AC-1: Homogeneous International Consensus on MINI Patterns (https://doi.org/10.1515/advo-7598-4544) Test Performed at: [facility] [place], [place] [address] AMIE MOSER MD 11/03/2024 6:13 AM DIGITAL SALES ASSISTANT 11/03/2024 6:14 AM DIGITAL SALES ASSISTANT Megha Berkowitz MD LAB - CHEMISTRY ORDE RABLES Performing Organization Address [facility] [address]/[facility] Co de Phone Number [facility] [address] [place] [address] * ERYTHROCYTE SEDIMENTATION RATE (11/03/2024 6:13 AM DIGITAL SALES ASSISTANT) Pathologist [facility] Erythrocyte Sedimentation Rate Westergren 2 < OR = 20 mm/h [facility] Comment: Test Performed at: [facility] [id number] [place] [id number] AMIE MOSER MD Blood BLOOD SPECIMEN / Unknown 11/03/2024 6:13 AM DIGITAL SALES ASSISTANT 11/03/2024 6:14 AM DIGITAL SALES ASSISTANT Megha Berkowitz MD LAB - HEMATOLOGY ORD ERABLES Performing Organization Address [facility] [address]/[facility] Co de Phone Number [facility] [address] [place] [address] * CBC WITH DIFFERENTIAL (11/03/2024 6:13 AM DIGITAL SALES ASSISTANT) Pathologist [facility] White Blood Cell Count 5.0 3.8 - [...] 0.4 % [facility] Comment: Test Performed at: [facility] [address] [facility] [place] [address] AMIE MOSER MD Blood BLOOD SPECIMEN / Unknown 11/03/2024 6:13 AM DIGITAL SALES ASSISTANT 11/03/2024 6:14 AM DIGITAL SALES ASSISTANT Megha Berkowitz MD LAB - HEMATOLOGY ORD ERABLES [facility] [address] [place] [address] * (ABNORMAL) COMPREHENSIVE METABOLIC PANEL (11/03/2024 6:13 AM DIGITAL SALES ASSISTANT) Glucose 104(H) 65 - 99 mg/dL [facility] [...] 73m2 [facility] BUN/Creatinine Ratio SEE NOTE: 6 - (calc) [facility] Comment: Not Reported: BUN and [...] 46 U/L [facility] Comment: Test Performed at: [facility] [address] [facility] [place] [email or web address] [address] AMIE MOSER MD Blood BLOOD SPECIMEN / Unknown 11/03/2024 6:13 AM DIGITAL SALES ASSISTANT 11/03/2024 6:14 AM DIGITAL SALES ASSISTANT Megha Berkowitz MD LAB - CHEMISTRY DAMION ESPINAL Performing Organization Address City/[facility] [address]/ZIP Co de Phone Number [facility] [address] [place] [address] * CK BLOOD (11/03/2024 6:13 AM DIGITAL SALES ASSISTANT) CK 57 44 - 196 U/L [facility] Comment: Test Performed at: [employer] [place] [employer] [email or web address] [address] AMIE MOSER MD Blood BLOOD SPECIMEN / Unknown 11/03/2024 6:13 AM DIGITAL SALES ASSISTANT 11/03/2024 6:14 AM DIGITAL SALES ASSISTANT Megha Berkowitz MD LAB - CHEMISTRY DAMION ESPINAL Performing Organization Address [facility] [address]/[facility] Co de Phone Number [facility] [address] [place] [phone] * COMPLEMENT C3 C4 PANEL (11/03/2024 6:13 AM DIGITAL SALES ASSISTANT) Complement C3 116 82 - 185 mg/dL [facility] Complement C4 21 15 - 53 mg/dL [facility] Comment: Test Performed at: [employer] [place] [address] AMIE MOSER MD Blood BLOOD SPECIMEN / Unknown 11/03/2024 6:13 AM DIGITAL SALES ASSISTANT 11/03/2024 6:14 AM DIGITAL SALES ASSISTANT Megha Berkowitz MD LAB - CHEMISTRY DAMION ESPINAL Performing Organization Address City/[facility] [address]/ZIP Co de Phone Number [facility] [address] [place] [address] from Last 3 Months Care Teams Door Opener Relationship Specialty Start Date End Date Mason Lewis MD [address] [place] [address] EBONY ROSE [id number] PCP - General Family Medicine 05/31/23
--- OUTSIDE RECORDS SUMMARY | 2024-12-29 18:24 | XMS_ITS | Clinical Summary ---
Author Organization [facility] [employer] Address [address] [place] [address] Care Team Providers Care Medical Aides Teacher Name Role Phone Mason Lewis MD Primary Care Provider [phone] Source Comments [facility] [employer],non-owned Affiliates and Associated Physician Practices is amultiple site organization consisting of ambulatory clinics and hospital sitesin [place], [place] and [place]. This disclosure is being madepursuant to the Care Everywhere program and may not contain all information available regarding this patient. Last updated 18.[facility] [employer] Allergies No known active allergies Medications * [...] ellitus 08/12/2020 BOGDAN (obstructive sleep apnea) 08/12/2020 Overview (02/27/2023): [facility] THERAPEUTIC STUDY Sleep Architecture: During this therapeutic [...] 08/19/2012 Overview (08/01/2022): DMII WO CMP UNCNTRLD Encounters Date Type Department Care Team Description 10/24/2024 1:40 PM TRACER LATHE SET UP OPERATOR Office Visit [facility] - Rheumatology [address] [place] [address] Megha Berkowitz MD Raynaud's disease without gangrene (Primary Dx); Chronic pain of both knees; Fatigue, unspecified type; Pulmonary hypertension (HCC) 10/24/2024 Travel from Last 3 Months Immunizations Name Administration Dates Next Due Covid Moderna primary monova lent 12+ yr 0.5mL 09/11/2021,03/11/2021,02/09/2021 HEP A VACCINE, ADULT 09/11/1997 INFLUENZA VACCINE 09/13/1998,09/11/1997 MMR 07/08/1978 POLIO OPV 05/11/1979 SMALLPOX (VACCINIA) VACCINE, LIVE 03/12/1983 TYPHOID VACCINE 06/12/1988 Td (Adult), 2 Lf Tetanus Tox oid, Adsorbed, Pf 09/11/1997 Family History Medical History Relation Name Comments Arthritis - Rheumatoid Daughter CAD (Coronary Artery Disease) Father 47 40, 47 Hypertension Father 47 Thyroid Disease Father 47 Alzheimer's Disease Mother 80 Arthritis - Rheumatoid Mother 80 Diabetes; unknown type Mother 80 Hypertension Mother 80 Lupus Other 1 sibling Lupus Sister 1 Depression Sister 2 Thyroid Disease Sister 2 Relation Name Status Comments Daughter Alive Father 47 Mother 80 Other 1 sibling Alive Other 2 sibling Alive Sister 1 Alive Sister 2 Alive Social History Tobacco Use Types Packs/Day Years [...] Comments Blood Pressure 137/66 10/24/2024 1:36 PM TRACER LATHE SET UP OPERATOR Pulse 74 10/24/2024 1:36 PM TRACER LATHE SET UP OPERATOR Temperature 36.4 C (97.5 F) 02/22/2021 2:08 PM CDT Respiratory Rate 18 01/18/2024 1:49 PM TRACER LATHE SET UP OPERATOR Oxygen Saturation 98% 01/18/2024 1:49 PM TRACER LATHE SET UP OPERATOR Inhaled Oxygen Concentration - - Weight 76.2 kg (168 lb) 10/24/2024 1:36 PM TRACER LATHE SET UP OPERATOR Height 170.2 cm (5' 7 ) 10/24/2024 1:36 PM TRACER LATHE SET UP OPERATOR Body Mass Index 26.31 10/24/2024 1:36 PM TRACER LATHE SET UP OPERATOR Plan of Treatment Health Maintenance Due Date Last Done Comments COLOGUARD (AGES 45-75) - COLON CA SCREENING 1959 COLON MONITORING 1959 COLONOSCOPY - COLON CA SCREENING 1959 CT COLONOGRAPHY - COLON CA SCREENING 1959 Colorectal Cancer Screening 1959 FIT - COLON CA SCREENING 1959 FLEX SIG - COLON CA SCREENING 1959 MEDICARE AWV 12 MONTHS 1959 HIV SCREENING 1974 HEPATITIS C SCREENING 04/22/1977 PNEUMOCOCCAL VACCINE 50+ (1 of 2 - PCV) 1978 DTAP/TDAP/TD VACCINES (1 - Tdap) 09/12/1997 09/11/1997 DIABETES-STATIN 1999 ZOSTER VACCINE (1 of 2) 2009 Respiratory Syncytial Virus (RSV) Vaccine Pt: or over 60 yrs (1 - Risk 60-74 years 1-dose series) 2019 DIABETES RETINOPATHY SCREENING 08/01/2022 DIABETES-FOOT EXAM WITH MONOFILAMENT 08/01/2022 DIABETES-HGB A1C 08/01/2022 01/10/2019, 01/04/2018 COVID-19 VACCINE ( season) 2024 09/11/2021, 03/11/2021, 02/09/2021 INFLUENZA VACCINE (#1) 2024 09/13/1998, 1996 DEPRESSION SCREENING 11/12/2024 10/24/2024, 03/16/2023, 05/12/2022 DIABETES - URINE PROTEIN SCREENING 11/12/2024 01/10/2019 DIABETES-SERUM CREATININE 11/03/20252023, 02/03/2022, 09/26/2021, Additional history exists HEPATITIS B VACCINE Aged Out No longe r eligible based on patient's age to complete this topic HIB VACCINE Aged Out No longer eligi ble based on patient's age to complete this topic HPV VACCINE Aged Out No longer eligi ble based on patient's age to complete this topic MENINGOCOCCAL (Group B) VACCINE Aged Out No longer eligible based on patient's age to complete this topic MENINGOCOCCAL VACCINE Aged Out No anita lilia eligible based on patient's age to complete this topic Procedures Procedure Name Priority Date/Time Associated Diagnosis Comments MINI BLOOD TITER 11/03/2024 6:13 AM TRACER LATHE SET UP OPERATOR MYOSITIS 11 ANTIBODY PNL Routine 11/03/2024 6:13 AM TRACER LATHE SET UP OPERATOR Pulmonary hypertension (HCC) CARDIOLIPIN ANTIBODY IGA/IGG/IGM PANEL Routine 11/03/2024 6:13 AM TRACER LATHE SET UP OPERATOR Chronic pain of both knees CK BLOOD Routine 11/03/2024 6:13 AM TRACER LATHE SET UP OPERATOR Chronic pain of both knees COMPLEMENT C3 C4 PANEL Routine 11/03/2024 6:13 AM TRACER LATHE SET UP OPERATOR Chronic pain of both knees MINI PANEL COMPREHENSIVE Routine 11/03/2024 6:13 AM TRACER LATHE SET UP OPERATOR Chronic pain of both knees C-REACTIVE PROTEIN Routine 11/03/2024 6: 13 AM TRACER LATHE SET UP OPERATOR Chronic pain of both knees ERYTHROCYTE SEDIMENTATION RATE Routine 11/03/2024 6:13 AM TRACER LATHE SET UP OPERATOR Chronic pain of both knees COMPREHENSIVE METABOLIC PANEL Routine 11/03/2024 6:13 AM TRACER LATHE SET UP OPERATOR Chronic pain of both knees CBC W AUTO DIFFERENTIAL Routine 11/03/2024 6:13 AM TRACER LATHE SET UP OPERATOR Chronic pain of both knees from Last 3 Months Results * MYOSITIS 11 ANTIBODY PNL (11/03/2024 6:13 AM TRACER LATHE SET UP OPERATOR) Marisol-1 Antibody <11 <[address]-7 Antibody <11 <[address]-12 Antibody <11 <11 [facility] EJ Antibody <11 <11 [facility] OJ Antibody <11 <11 [facility] SRP Antibody <11 <11 SI [facility] AK-2 Alpha Antibody <11 <11 SI [facility] AK-2 Beta Antibody <11 <11 SI [facility] MDA-5 [...] with a rash. Additionally, MSAs to MDA5 ([id number]) have been identified in patients with clinically [...] analytical performance characteristics have been determined by [employer]. It has not been cleared or approved by the FDA. This assay has been validated pursuant to the CLIA regulations and is used for clinical purposes. Test Performed at: [facility] [address] [place] [address] PADMINI PETTY MD,PHD,JOYA Blood BLOOD SPECIMEN / Unknown 11/03/2024 6:13 AM TRACER LATHE SET UP OPERATOR 11/03/2024 6:14 AM TRACER LATHE SET UP OPERATOR Megha Berkowitz MD LAB - SEROLOGY ORDER SAIMA [facility] [address] [place] [address] * CARDIOLIPIN ANTIBODY IGA/IGG/IGM PANEL (11/03/2024 6:13 AM TRACER LATHE SET UP OPERATOR) Cardiolipin Antibody IgA <2.0 APL-U/mL [facility] Comment: Value Interpretation ----- < 20.0 Antibody not detected > or = 20.0 Antibody detected Cardiolipin Antibody IgG <2.0 GPL-U/mL [facility] Comment: Value Interpretation ----- < 20.0 Antibody [...] aging. For additional information, please refer to http://jaeyos.[employer]/faq/MZY748 (This link is being provided for informational/ educational purposes only.) Test Performed at: [facility] [address] [address] LIZANDRO Emma MCGEE Blood BLOOD SPECIMEN / Unknown 11/03/2024 6:13 AM TRACER LATHE SET UP OPERATOR 11/03/2024 6:14 AM TRACER LATHE SET UP OPERATOR Megha Berkowitz MD LAB - SEROLOGY ORDER SAIMA [facility] [id number] [place] [address] * (ABNORMAL) MINI PANEL COMPREHENSIVE (11/03/2024 6:13 AM TRACER LATHE SET UP OPERATOR) MINI Screen POSITIVE( A) NEGATIVE [facility] Comment: MINI IFA is a first line screen for detecting the presence of up to approximately 150 autoantibodies in various autoimmune diseases. A positive MINI IFA result is suggestive of autoimmune disease and reflexes to titer and pattern. Further laboratory testing may be considered if clinically indicated. For additional information, please refer to http://jaeyos.[employer]/faq/FZN289 (This link is being provided for informational/ educational purposes only.) dsDNA Antibody 1 IU/mL [facility] Comment: IU/mL Interpretation < or = 4 Negative 5-9 Indeterminate > or = 10 Positive SCL-70 Antibody <1.0 NEG <1.0 NEG AI [facility] SM Antibody <1.0 NEG <1.0 NEG AI [facility] SM/POWDER LOADER Antibody <1.0 NEG <1.0 NEG AI [facility] Sjogren's Antibodies (SSA) <1.0 NEG <1.0 NEG AI [facility] Sjogren's Antibodies (SSB) <1.0 NEG <1.0 NEG AI [facility] Comment: Test Performed at: [facility] [place] [address] AMIE MOSER MD Blood BLOOD SPECIMEN / Unknown 11/03/2024 6:13 AM TRACER LATHE SET UP OPERATOR 11/03/2024 6:14 AM TRACER LATHE SET UP OPERATOR Megha Berkowitz MD LAB - SEROLOGY ORDER SAIMA Performing Organization Address [facility] de Phone Number [facility] [address] [place] [address] * C-REACTIVE PROTEIN (11/03/2024 6:13 AM TRACER LATHE SET UP OPERATOR) Pathologist [facility] C-Reactive Protein <3.0 <8.0 mg/L [facility] Comment: Test Performed at: [facility] [place] [address] AMIE MOSER MD Blood BLOOD SPECIMEN / Unknown 11/03/2024 6:13 AM TRACER LATHE SET UP OPERATOR 11/03/2024 6:14 AM TRACER LATHE SET UP OPERATOR Megha Berkowitz MD LAB - CHEMISTRY ORDE RABLES Performing Organization Address [facility] [place] [address] * (ABNORMAL) MINI BLOOD TITER (11/03/2024 6:13 AM TRACER LATHE SET UP OPERATOR) MINI 1:80(H) titer [facility] Comment: A low level MINI titer may be present in pre-clinical autoimmune diseases and normal individuals. Reference Range <1:40 Negative 1:40-1:80 Low Antibody Level >1:80 Elevated Antibody Level MINI Pattern Nuclear, Homogeneou s(A) [facility] Comment: Homogeneous pattern is associated with systemic lupus erythematosus (SLE), drug-induced lupus and juvenile idiopathic arthritis. AC-1: Homogeneous International Consensus on MINI Patterns (https://doi.org/10.1515/lxkr-9753-9200) Test Performed at: [facility] [address] AMIE MOSER MD 11/03/2024 6:13 AM TRACER LATHE SET UP OPERATOR 11/03/2024 6:14 AM TRACER LATHE SET UP OPERATOR Megha Berkowitz MD LAB - CHEMISTRY ORDE RABLES Performing Organization Address [facility] Co de Phone Number [facility] [address] [place] [address] * ERYTHROCYTE SEDIMENTATION RATE (11/03/2024 6:13 AM TRACER LATHE SET UP OPERATOR) Pathologist [facility] Erythrocyte Sedimentation Rate Westergren 2 < OR = 20 mm/h [facility] Comment: Test Performed at: [facility] [address] [place] [address] AMIE MOSER MD Blood BLOOD SPECIMEN / Unknown 11/03/2024 6:13 AM TRACER LATHE SET UP OPERATOR 11/03/2024 6:14 AM TRACER LATHE SET UP OPERATOR Megha Berkowitz MD LAB - HEMATOLOGY ORD ERABLES Performing Organization Address [facility] [place] [address] * CBC WITH DIFFERENTIAL (11/03/2024 6:13 AM TRACER LATHE SET UP OPERATOR) Pathologist [facility] White Blood Cell Count 5.0 3.8 - [...] 0.4 % [facility] Comment: Test Performed at: [facility] [address] [facility] [place] [address] AMIE MOSER MD Blood BLOOD SPECIMEN / Unknown 11/03/2024 6:13 AM TRACER LATHE SET UP OPERATOR 11/03/2024 6:14 AM TRACER LATHE SET UP OPERATOR Megha Berkowitz MD LAB - HEMATOLOGY ORD ERABLES Performing Organization Address City/State/[facility] Co de Phone Number [facility] [address] [place] [address] * (ABNORMAL) COMPREHENSIVE METABOLIC PANEL (11/03/2024 6:13 AM TRACER LATHE SET UP OPERATOR) Glucose 104(H) 65 - 99 mg/dL [facility] [...] [facility] BUN/Creatinine Ratio SEE NOTE: 6 - 22 (calc) [facility] Comment: Not Reported: BUN and [...] 46 U/L [facility] Comment: Test Performed at: [facility] [address] [address] AMIE MOSER MD Blood BLOOD SPECIMEN / Unknown 11/03/2024 6:13 AM TRACER LATHE SET UP OPERATOR 11/03/2024 6:14 AM TRACER LATHE SET UP OPERATOR Megha Berkowitz MD LAB - CHEMISTRY ORDAnuj ESPINAL Performing Organization Address [facility] Co de Phone Number [facility] [address] [place] [address] * CK BLOOD (11/03/2024 6:13 AM TRACER LATHE SET UP OPERATOR) Pathologist [facility] CK 57 44 - 196 U/L [facility] Comment: Test Performed at: [facility] [address] [employer] [place] [address] AMIE MOSER MD Blood BLOOD SPECIMEN / Unknown 11/03/2024 6:13 AM TRACER LATHE SET UP OPERATOR 11/03/2024 6:14 AM TRACER LATHE SET UP OPERATOR Megha Berkowitz MD LAB - CHEMISTRY ORDAnuj ESPINAL Performing Organization Address [facility] de Phone Number [facility] [address] [place] [address] * COMPLEMENT C3 C4 PANEL (11/03/2024 6:13 AM TRACER LATHE SET UP OPERATOR) Complement C3 116 82 - 185 mg/dL [facility] Complement C4 21 15 - 53 mg/dL [facility] Comment: Test Performed at: [place] [address] AMIE MOSER MD Blood BLOOD SPECIMEN / Unknown 11/03/2024 6:13 AM TRACER LATHE SET UP OPERATOR 11/03/2024 6:14 AM TRACER LATHE SET UP OPERATOR Megha Berkowitz MD LAB - CHEMISTRY DAMION ESPINAL Performing Organization Address [facility] Co de Phone Number [facility] [address] [place] [address] from Last 3 Months Care Teams Medical Aides Teacher Relationship Specialty Start Date End Date Mason Lewis MD [address] [place] [address] [place] [address] PCP - General Family Medicine 05/31/23
== END 2024-12-29 16:13 | disposition home or self-care (01) ==
PROVIDERS: PCP Nurse Practitioner Family; Visit Provider Nurse Practitioner Family
DX: R90.82 White matter disease, unspecified (principal); R41.3 Other amnesia
CPT/HCPCS: 70450

== ENCOUNTER 2025-02-16 00:28 | Day surgery (SDC) | payer BC, OTHER, SELFPAY ==
[2025-02-10 13:53] VITALS: BMI 26.6
--- OUTSIDE RECORDS SUMMARY | 2025-02-16 00:33 | XMS_ITS | Referral Summary ---
Author Organization [facility] Address [address] [place] [id number] Care Team Providers Care Radio News Anchor Name Role Phone Melani Jara NP Primary Care Provider [phone] Encounters Date Type Department Care Team Description 02/09/2025 Telephone [facility] E[facility] [address] [facility] Advanced Medicine [address]th [place] [address] [place] [address] Meaghan Perez, MS 01/28/2025 Telephone Center [facility] ([facility] ENT [address] [facility] [address]th [place] [address] [place] [address] Meaghan Perez, MS 01/19/2025 Orders Only [facility] Pulmonary [address] [facility] 8th [place] [address] [place] [address] Car Cruz MD Pulmonary hypertension (HCC) (Primary Dx) from Last 3 Months Allergies No known active allergies Medications multivitamin tablet tablet Take according to xakb-vxa-lxzarp r package directions 0 0 8 Active [...] 1 capsule (137 mcg total) by mouth java j2ee architect before breakfast 4 Active doxepin 6 mg [...] on file Legal Sex Male 12:47 AM DICTAPHONE TRANSCRIBER Gender Identity Not on file Sexual Orientation Not on file Last Filed Vital Signs Vital Sign Reading Time Taken Comments Blood Pressure 128/64 02/22/2024 11:18 AM CDT Pulse 65 02/22/2024 11:18 AM CDT Temperature 36.8 C (98.3 F) 09/17/2020 7:03 AM DICTAPHONE TRANSCRIBER Respiratory Rate 16 09/17/2020 7:03 AM DICTAPHONE TRANSCRIBER Oxygen Saturation 98% 02/22/2024 11:18 AM CDT [...] AM CDT) eGFR 106 mL/min/1.7 3 m2 [facility] RICK Comment: Interpretive Data Reference Interval Normal >/= 90 mL/min/1.73m2 Mildly decreased* 60 - 89 mL/min/1.73m2 Mildly to moderately decreased 45 - 59 mL/min/1.73m2 Moderately to severely decreased 30 - 44 mL/min/1.73m2 Severely decreased 15 - 29 mL/min/1.73m2 Kidney Failure < 15 mL/min/1.73m2 *Relative to young adult level If -Gambian multiply value by 1.16. Estimated glomerular filtration [...] Aurelio Figueroa MD LAB BLOOD ORDERABLES Olena l Result [facility] [id number] Department [place] [address] from Last 3 Months or Most Recently Relevant to Health Maintenance Insurance FOR LIFE simplifyMD PR BLUE [email or web address] [place] FOR LIFE ESSENCE ADVANTAGE CHOICE PPO [facility] FOR LIFE Care Teams Radio News Anchor Relationship Specialty Start Date End Date Melani Jara NP [address] [place] [address] PCP - General Nurse Practitioner 02/05/25
--- OUTSIDE RECORDS SUMMARY | 2025-02-16 00:33 | XMS_ITS | Clinical Summary ---
Author Organization [facility] Address [address] [place] [address] Care Team Providers Care Landscape Artist Name Role Phone Melani Jara NP Primary Care Provider [phone] Allergies No known active allergies Medications multivitamin tablet tablet Take according to dncg-axu-qqtqnz r package directions 0 0 8 Active [...] 1 capsule (137 mcg total) by mouth early learning teacher before breakfast 4 Active doxepin 6 mg [...] Thyroid activity decreased 08/19/2012 Diabetes mellitus 08/19/2012 Encounters Date Type Department Care Team Description 02/09/2025 [facility] [address] [facility] Advanced Medicine [address]th [place] [address] [place] [address] Meaghan Perez, 01/28/2025 Telephone [facility] [address] [facility] [address]th [place] [address] [place] [address] Meaghan Perez MS 01/19/2025 Orders Only [facility] Pulmonary [address] [facility] 8th [place] [address] [place] [address] Car Cruz MD Pulmonary hypertension (HCC) (Primary Dx) from Last 3 Months Surgical History Surgery Date Site/Laterality Comments THYROIDECTOMY CYST REMOVAL VASECTOMY CARDIAC CATHETERIZATION 09/17/2020 No CAD Medical History Medical History Date Comments Hyperlipidemia Hyperlipidemia Hypertension Hypertension Sleep apnea Type 2 diabetes mellitus (HCC) Hypothyroidism Fatigue Graves disease 1994 Positive MINI (antinuclear antibody) 2020 Autoimmune disease 1994 Family History Medical History Relation Name Comments Early Father Edjono Heart attack Father Edward Heart disease Father Edjono Alzheimer's disease Mother Toshiko Diabetes Mother Toshisam Diabetes type II Other 1 Family hist [...] on file Legal Sex Male 12:47 AM STONE AND CONCRETE WASHER Gender Identity Not on file Sexual Orientation Not on file Obstetrics History Last Filed Vital Signs Vital Sign Reading Time Taken Comments Blood Pressure 128/64 02/22/2024 11:18 AM CDT Pulse 65 02/22/2024 11:18 AM CDT Temperature 36.8 C (98.3 F) 09/17/2020 7:03 AM STONE AND CONCRETE WASHER Respiratory Rate 16 09/17/2020 7:03 AM STONE AND CONCRETE WASHER Oxygen Saturation 98% 02/22/2024 11:18 AM CDT [...] Assessment 09/17/2021 09/17/2020 Well Visit 65+ 2024 Lipid Panel 02/21/2025 02/22/2024, 09/14, 06/30/2021, Additional history exists Influenza Vaccine (Season Ended) 2025 09/09/2019, 09/13/1998, 09/11/1997 Procedures Procedure Name Priority Date/Time Associated Diagnosis [...] mL/min/1.73m2 *Relative to young adult level If -Togolese multiply value by 1.16. Estimated glomerular filtration [...] LAB BLOOD ORDERABLES Olena l Result [facility] [address] [address] Department [place] [address] from Last 3 Months or Most Recently Relevant to Health Maintenance Insurance FOR [place] FOR LIFE ESSENCE ADVANTAGE CHOICE PPO BLUE [facility] FOR [facility] Care Teams Landscape Artist Relationship Specialty Start Date End Date Melani Jara NP [address] [place] [address] PCP - General Nurse Practitioner 02/05/25
--- OUTSIDE RECORDS SUMMARY | 2025-02-16 00:33 | XMS_ITS | Clinical Summary ---
Author Organization [facility] Address [address] [place] [address] Care Team Providers Care Marketing Ambassador Name Role Phone Jerome Barnes MD Primary Care Provider [phone] Social History Tobacco Use Types Packs/Day Years [...] Vaccine (1 - 2023-2 5 season) 2024 RSV Immunization or 60+ Years (1 [...] age to complete this topic Care Teams Marketing Ambassador Relationship Specialty [place] [address] [address] [address] PCP - General 10/24/13
--- OUTSIDE RECORDS SUMMARY | 2025-02-16 00:33 | XMS_ITS | Clinical Summary ---
Author Organization [email or web address] Address [address] [place] [address] Care Team Providers Care Tenterer Name Role Phone Mason Lewis MD Primary Care Provider [phone] Source Comments [email or web address],non-owned Affiliates and Associated Physician Practices is amultiple site organization consisting of ambulatory clinics and hospital sitesin [place] and [place]. This disclosure is being madepursuant to the Care Everywhere program and may not contain all information available regarding this patient. Last updated 18.[email or web address] Allergies No known active allergies Medications * [...] BOGDAN (obstructive sleep apnea) 08/12/2020 Overview (02/27/2023): [facility] THERAPEUTIC STUDY Sleep Architecture: During this [...] Comments Blood Pressure 137/66 10/24/2024 1:36 PM PATIENT FINANCIAL REP Pulse 74 10/24/2024 1:36 PM PATIENT FINANCIAL REP Temperature 36.4 C (97.5 F) 02/22/2021 2:08 PM CDT Respiratory Rate 18 01/18/2024 1:49 PM PATIENT FINANCIAL REP Oxygen Saturation 98% 01/18/2024 1:49 PM PATIENT FINANCIAL REP Inhaled Oxygen Concentration - - Weight 76.2 kg (168 lb) 10/24/2024 1:36 PM PATIENT FINANCIAL REP Height 170.2 cm (5' 7 ) 10/24/2024 1:36 PM PATIENT FINANCIAL REP Body Mass Index 26.31 10/24/2024 1:36 PM PATIENT FINANCIAL REP Plan of Treatment Health Maintenance Due Date [...] complete this topic MENINGOCOCCAL (Group B) VACCINE SHARED DECISION-MAKING Aged Out No longer eligible based on patient's age to complete this topic MENINGOCOCCAL GROUPS A/C/Y/W VACCINE Aged Out No longer eligible based on patient's age to complete this topic Procedures Procedure Name Priority Date/Time Associated Diagnosis Comments COMPREHENSIVE METABOLIC PANEL Routine 11/03/2024 6:13 AM PATIENT FINANCIAL REP Chronic pain of both knees from Last 3 Months or Most Recently Relevant to Health Maintenance Results * (ABNORMAL) COMPREHENSIVE METABOLIC PANEL (11/03/2024 6:13 AM PATIENT FINANCIAL REP) [facility] Glucose 104(H) 65 - 99 mg/dL [facility] [...] mL/min/1. 73m2 [facility] BUN/Creatinine Ratio SEE NOTE: (calc) [facility] Comment: Not Reported: BUN and [...] 46 U/L [facility] Comment: Test Performed at: [facility] [id number] [place] [address] AMIE MOSER MD Blood BLOOD SPECIMEN / Unknown 11/03/2024 6:13 AM PATIENT FINANCIAL REP 11/03/2024 6:14 AM PATIENT FINANCIAL REP Megha Berkowitz MD LAB - CHEMISTRY ORDE [facility] Organization Address City/State/ZIP Co de Phone Number [facility] [address] [place] [address] from Last 3 Months or Most Recently Relevant to Health Maintenance Care Teams Tenterer Relationship Specialty Start Date End Date Mason Lewis MD [address] [place] [address] [place] [id number] PCP - General Family Medicine 05/31/23
--- OUTSIDE RECORDS SUMMARY | 2025-02-16 00:33 | XMS_ITS | Continuity of Care Document ---
Author Name [facility] Organization [facility] Care Team Providers Care Shove Up Name Role Phone [facility] Unavailable Unavailable Medications Combined list of outpatient medications from Department of Defense and Veterans Affairs facilities.Medications provided include 1) outpatient medications from the last 15 months, and 2) patient-reported medications. Medication Details Route Status Patient Instructions Prescription Expires Prescription Number Last Dispense Date Ordering Provider Order Date Order Qty Source Baqsimi 3 mg nasal powder [1EA] See Instruct chikis, # 1 EA, 1 total refill(s ), Hard Stop Ordered 09/24/2025 2023 1.0 Ambulat ory Pharmac y BD Ange 2nd Gen pen needle 32g 4mm [100EA] See Instruct chikis, # 100 EA, 3 total refill(s ), Hard Stop Ordered 11/24/2025 5 2024 100.0 Ambulat ory Pharmac y BD Ange 2nd Gen pen needle 32g 4mm [100EA] See Instruct chikis, # 100 EA, 1 total refill(s ), Hard Stop Ordered 03/19/2025 4 2023 100.0 Ambulat ory Pharmac y celecoxib 200 mg capsule 200 mg, Oral, Daily, # 30 EA, 5 total refill(s ), Hard Stop Oral (given by mouth) Complet ed 04/30/2024 4 2023 30.0 Ambulat ory Pharmac y eszopiclone 3 mg tablet 3 mg, See Instruct ions, Oral, Daily, # 30 EA, 1 total refill(s ), Hard Stop Oral (given by mouth) Complet ed 10/15/2023 3 2022 30.0 Ambulat ory Pharmac y eszopiclone 3 mg tablet 3 mg, Oral, Daily, # 90 EA, 1 total refill(s ), Hard Stop Oral (given by mouth) Ordered 03/11/2025 5 2024 90.0 Ambulat ory Pharmac y eszopiclone 3 mg tablet 3 mg, Oral, Daily, # 30 EA, 1 total refill(s ), Hard Stop Oral (given by mouth) Complet ed 01/22/2024 3 2023 30.0 Ambulat ory Pharmac y eszopiclone 3 mg tablet See Instruct ions, Oral, # 90 EA, 0 total refill(s ), Hard Stop Oral (given by mouth) Complet ed 09/09/2024 4 2023 90.0 Ambulat ory Pharmac y gabapentin 300 mg capsule 300 mg, Oral, every day at bedtime, # 90 EA, 1 total refill(s ), Hard Stop Oral (given by mouth) Ordered 09/12/2025 5 2024 90.0 Ambulat ory Pharmac y gabapentin 300 mg capsule 300 mg, Oral, Daily, # 90 EA, 1 total refill(s ), Hard Stop Oral (given by mouth) Complet ed 09/11/2024 4 2023 90.0 Ambulat ory Pharmac y gabapentin 300 mg capsule 300 mg, Oral, # 90 EA, 1 total refill(s ), Hard Stop Oral (given by mouth) Discont inued 09/15/2024 4 2023 90.0 Ambulat ory Pharmac y HumuLIN N (NPH) KwikPen 100 units/mL [3mL] See Instruct ions, # 15 mL, 1 total refill(s ), Hard Stop Discont inued 01/15/2024 3 2023 15.0 Ambulat ory Pharmac y hydroCHLORO thiazide 12.5 mg tablet 12.5 mg, Oral, Daily, # 90 EA, 1 total refill(s ), Hard Stop Oral (given by mouth) Complet ed 07/25/2024 3 2023 90.0 Ambulat ory Pharmac y Jardiance 25 mg tablet See dose instruct ions in comments , # 90 EA, 3 total refill(s ), Acute Discont inued 01/17/2024 4 2023 90.0 Ambulat ory Pharmac y Jardiance 25 mg tablet 25 mg, Oral, every morning, # 90 EA, 3 total refill(s ), Hard Stop, TALIB Oral (given by mouth) Complet ed 01/15/2025 4 2024 90.0 Ambulat ory Pharmac y levothyroxi ne [Lannett] 137 mcg capsule See Instruct ions, # 90 EA, 3 total refill(s ), Acute Complet ed 01/30/2024 4 2023 90.0 Ambulat ory Pharmac y levothyroxi ne [Tirosint] 137 mcg capsule 137 mcg, Oral, Daily, # 90 EA, 3 total refill(s ), Hard Stop Oral (given by mouth) Ordered 03/19/2025 5 2024 90.0 Ambulat ory Pharmac y meloxicam 15 mg tablet 15 mg, Oral, Daily, # 90 EA, 1 total refill(s ), Hard Stop Oral (given by mouth) Ordered 05/07/2025 4 2023 90.0 Ambulat ory Pharmac y needle pen 31g 8mm [100EA] See Instruct ions, # 500 EA, 3 total refill(s ), Hard Stop Complet ed 06/20/2024 4 2023 500.0 Ambulat ory Pharmac y needle pen 31g 8mm [100EA] See Instruct ions, # 500 EA, 3 total refill(s ), Hard Stop Discont inued 03/21/2024 4 2023 500.0 Ambulat ory Pharmac y NovoLOG FlexPen aspart 100 units/mL [3mL] See Instruct ions, SubCutan eous, # 15 mL, 3 total refill(s ), Hard Stop SubCut aneous (under the skin) Complet ed 06/20/2024 4 2023 15.0 Ambulat ory Pharmac y omep[address]ole DR 20 mg capsule See Instruct ions, Oral, # 56 EA, 0 total refill(s ), Hard Stop Oral (given by mouth) Complet ed 01/23/2025 4 2024 56.0 Ambulat ory Pharmac y rosuvastati n 20 mg tablet 20 mg, Oral, Daily, # 90 EA, 1 total refill(s ), Hard Stop Oral (given by mouth) Complet ed 04/30/2024 3 2023 90.0 Ambulat ory Pharmac y rosuvastati n 20 mg tablet 20 mg, Oral, Daily, # 90 EA, 1 total refill(s ), Hard Stop Oral (given by mouth) Discont inued 12/16/2024 4 2024 90.0 Ambulat ory Pharmac y rosuvastati n 20 mg tablet 20 mg, Oral, Daily, # 90 EA, 1 total refill(s ), Hard Stop Oral (given by mouth) Ordered 12/08/2025 5 2024 90.0 Ambulat ory Pharmac y rosuvastati n 20 mg tablet 20 mg, Oral, Daily, # 90 EA, 1 total refill(s ), Hard Stop Oral (given by mouth) Discont inued 06/23/2024 4 2023 90.0 Ambulat ory Pharmac y tadalafil (eqv-adcirc a) 20 mg tablet 40 mg, Oral, Daily, # 60 EA, 5 total refill(s ), Hard Stop Oral (given by mouth) Ordered 09/16/2025 5 2024 60.0 Ambulat ory Pharmac y tadalafil (eqv-adcirc a) 20 mg tablet See Instruct ions, Oral, # 180 EA, 2 total refill(s ), Hard Stop Oral (given by mouth) Discont inued 11/25/2024 4 2024 180.0 Ambulat ory Pharmac y tamsulosin 0.4 mg capsule 0.4 mg, Oral, # 30 EA, 11 total refill(s ), Hard Stop Oral (given by mouth) Complet ed 06/19/2024 3 2023 30.0 Ambulat ory Pharmac y telmisartan 40 mg tablet 40 mg, Oral, Daily, # 90 EA, 1 total refill(s ), Hard Stop Oral (given by mouth) Complet ed 04/30/2024 3 2023 90.0 Ambulat ory Pharmac y telmisartan 40 mg tablet 40 mg, Oral, Daily, # 90 EA, 1 total refill(s ), Hard Stop Oral (given by mouth) Discont inued 12/16/2024 4 2024 90.0 Ambulat ory Pharmac y telmisartan 40 mg tablet 40 mg, Oral, Daily, # 90 EA, 1 total refill(s ), Hard Stop Oral (given by mouth) Ordered 12/08/2025 5 2024 90.0 Ambulat ory Pharmac y telmisartan 40 mg tablet 40 mg, Oral, Daily, # 90 EA, 1 total refill(s ), Hard Stop Oral (given by mouth) Discont inued 06/23/2024 4 2023 90.0 Ambulat ory Pharmac y U-300 (conc) Toujeo SoloStar glargine 300 units/mL [1.5mL] See Instruct ions, SubCutan eous, # 4.5 mL, 3 total refill(s ), Hard Stop SubCut aneous (under the skin) Ordered 09/24/2025 4 2023 4.5 Ambulat ory Pharmac y Immunizations Combined list of available immunizations from the Department of Defense and Veterans Affairs facilities. Immunization Series Date Given Administered By Site Reaction Lot Number CVX Code Drug Safety And Security Manager Status Comments Source influenza virus vaccine, whole virus [id number] [employer] complet ed influenza virus vaccine, whole virus 09/13/98 Given Ambulat ory Pharmac y influenza virus vaccine, whole virus [id number] influenza virus vaccine, whole virus 09/13/98 Given Ambulat ory Pharmac y hepatitis A adult vaccine 1996 [id number] 52 [facility] complet ed hepatitis A adult vaccine 09/11/97 Given Ambulat ory Pharmac y tetanus-dipht h toxoids (Td) adult/adol 1996 [id number] [facility] complet ed tetanus-d iphth toxoids (Td) adult/ado l 09/11/97 Given Ambulat ory Pharmac y influenza virus vaccine, whole virus 1996 [id number] [facility] complet ed influenza virus vaccine, whole virus 09/11/97 Given Ambulat ory Pharmac y hepatitis A adult vaccine 1996 [id number] 52 [employer] [facility] complet ed hepatitis A adult vaccine 09/11/97 Given Ambulat ory Pharmac y tetanus-dipht h toxoids (Td) adult/adol 1996 [id number] [facility] complet ed tetanus-d iphth toxoids (Td) adult/ado l 09/11/97 Given Ambulat ory Pharmac y typhoid, parenteral, AKD 1987 53 complet ed typhoid, parentera l, AKD 06/12/88 Given Ambulat ory Pharmac y typhoid, parenteral, AKD 1987 53 complet ed typhoid, parentera l, AKD 06/12/88 Given Ambulat ory Pharmac y vaccinia (smallpox) vaccine 1982 75 complet ed vaccinia (smallpox ) vaccine 03/12/83 Given Ambulat ory Pharmac y vaccinia (smallpox) vaccine 1982 75 complet ed vaccinia (smallpox ) vaccine 03/12/83 Given Ambulat ory Pharmac y poliovirus vaccine, live, oral 1978 [id number] 02 [facility] complet ed polioviru s vaccine, live, oral 05/11/79 Given Ambulat ory Pharmac y poliovirus vaccine, live, oral 1978 [id number] 02 [facility] complet ed polioviru s vaccine, live, oral 05/11/79 Given Ambulat ory Pharmac y measles/mumps /rubella virus vaccine 1977 [id number] 03 [facility] complet ed measles/m umps/rube lla virus vaccine 07/08/78 Given Ambulat ory Pharmac y measles/mumps /rubella virus vaccine 1977 [id number] 03 [facility] complet ed measles/m umps/rube lla virus vaccine 07/08/78 Given Ambulat ory Pharmac y Encounters Combined list of: 1) Encounters from Department of [facility] facilities going backup to the last 18 months, not all [place] inpatient encounters are included; 2) Encounters from the Department of [facility] facilities going backup to 280 months. Location Location Details Encounter Type Encounter Number Reason For Visit Attending Provider ADM Date DC Date Status Disposition Source [facility] Outpatient Encounter [id number] 06/25 [facility] N [id number]-[facility] jan[facility] Between Visit [id number] 09/23 Discharge Disposition: Home or Self Care 0055C[facility] 0055[facility] Between Visit [id number] 09/24 Discharge Disposition: Home or Self Care 0055C-[facility] 0055C-[facility] Between Visit [id number] 11/24 Discharge Disposition: Home or Self Care 0055C-3 [facility] 0055C-375 [facility] Between Visit [id number] 11/25 Discharge Disposition: Home or Self Care 0055C-3 [facility] 0055C-[facility] Between Visit [id number] 12/16 Discharge Disposition: Home or Self Care 0055C-[facility] Procedures Combined list of: 1) Procedures from Department of Veterans Affairs facilities going back up to thelast 18 months, not all [place] non-surgical procedures are included; 2) All procedures from the Department of [facility] facilities. Procedure Procedure Type Code Date Perfomer Comments Sourc e No data available for this section Ambulatory P harmacy Assessment and Plan Combined list of future care activities from Department of Defense and Veterans Affairs facilities (e.g., assessment and plan notes, appointments, orders, and referrals). Additional future care activities may be listed in the Plan of Care section. Result Assessment and Plan Date Source Assessment and Plan No data available for this section 02/16/2025 Ambulatory Pharmacy Functional Status Combined list of recent functional and cognitive assessments recorded at Department of Defense and Veterans Affairs (VA).VA Functional [place] Measurement (FIM) Scale: 1 = Total Assistance (Subject = 0% +), 2 = Maximal Assistance (Subject = 25% +), 3 = Moderate Assistance (Subject = 50% +), 4 = Minimal Assistance (Subject = 75% +), 5 = Supervision, 6 = Modified [place] (Device), 7 = Complete [place] (Timely, Safely). Assessment Date/Time Source Assessment Type Assessment Skill Assessment Score Assessment Details No data available for this section
--- OUTSIDE RECORDS SUMMARY | 2025-02-16 00:33 | XMS_ITS | Continuity of Care Document ---
[facility] Organization [facility] Address [address] [place] [address] Phone Care Team Providers Care Curtain Mender Name Role Phone Nabila Antonio MD Unavailable [...] Diagnoses Date Provider Providers Copied on Encounter [facility], [address], [place], [place], [address] , [place] tel: [phone] [place] No Information Jul-0 6 1 Marisela Dahl. [address] [place], [place], [id number]. tel:[phone] [facility], [address], [place], [place], [address] , [place] tel: [phone] [place] SCREEN MAL NEOP-RECTUMBENIGN HYPERTENSIONMIXED HYPERLIPIDEMIAMALAIS E AND FATIGUE NECPOSTABLAT HYPOTHYR NECTESTICULAR HYPOFUNC NECDMI WO CMP UNCNTRLD 5-200 7 Marisela Dahl. [address], [place], [id number]. tel:[phone] Family History Family Member Type Diagnosis Age [...]
[2025-02-16 09:48] VITALS: BP 129/68; PULSE 86; RESP 20; TEMP 36.4; O2SAT 100; BMI 27.0
[2025-02-16] MEDS: LACTATED RINGERS 1,000 ML 150 ML IV CONT (10:06)
--- NOTE | 2025-02-16 10:07 | SUR.PREOP ---
Patients blood sugar is 104 via Dexcom
--- NOTE | 2025-02-16 10:42 | WPDANESEPPF ---
Anes - Initial Pre Proc Eval Procedure: Operation Date: 02/16/25 12:00 Proposed Procedures p Screening Colonoscopy - Alfonso Parrish MD Date/Time: 02/16/25 10:42 Surgeon: Alfonso Parrish MD Pre Op Diagnosis: neoplasm screening Patient Data Age: 64 Gender: M Height: 1.68 m Weight: 75.9 kg Last Vital Signs Temp 97.5 F L 02/16/25 09:48 Pulse 86 02/16/25 09:48 Resp 20 02/16/25 09:48 BP 129/68 02/16/25 09:48 Pulse Ox 100 02/16/25 09:48 O2 Del Method Room Air 02/16/25 09:48 Allergies Allergy/AdvReac Type Severity Reaction Status Date / Time No Known Allergies Allergy Verified 02/16/25 09:52 Home Medications ?Medication ?Instructions ?Recorded ?Confirmed ?Type aspirin 81 mg capsule 81 mg PO DAILY 06/08/22 02/16/25 History cholecalciferol (vitamin D3) 25 25 mcg PO DAILY 09/12/23 02/16/25 History mcg (1,000 unit) tablet multivitamin (Daily Multi-Vitamin 1 tablet PO DAILY 09/12/23 02/16/25 History tablet) vitamin B complex (B 1 tablet PO DAILY 09/12/23 02/16/25 History Complex-Vitamin B12 tablet) calcium carbonate (Calcium 600) 600 mg PO DAILY 09/27/23 02/16/25 History modafinil 200 mg tablet 200 mg PO QAM #30 tabs 09/27/23 02/16/25 Rx Jardiance 25 mg tablet 25 mg PO QAM 90 days #90 tabs 01/16/24 02/16/25 Rx (empagliflozin) levothyroxine 137 mcg capsule 137 mcg PO DAILY 90 days #90 caps 03/19/24 02/16/25 Rx eszopiclone 3 mg tablet 3 mg PO QHS 90 days #90 tabs 09/12/24 02/16/25 Rx gabapentin 300 mg capsule 300 mg PO QHS #90 caps 09/12/24 02/16/25 Rx tadalafil 20 mg tablet 40 mg (2 x 20 mg) PO DAILY 09/19/24 02/16/25 Rx Pulmonary hypertension 90 days #180 tabs glucagon 3 mg/actuation nasal 3 mg intranasal ONCE PRN 09/24/24 02/10/25 Rx spray (Baqsimi) hypoglycemia #1 ea omeprazole 20 mg capsule,delayed 20 mg PO DAILY 09/24/24 02/16/25 History release tirzepatide 12.5 mg/0.5 mL 12.5 mg (0.5 mL) subcut WEEKLY #6 09/24/24 02/16/25 Rx subcutaneous pen injector mL (Mounjaro) pen needle, diabetic 32 gauge x #100 ea 11/24/24 12/31/24 Rx 5/32 (BD Ultra-Fine Ange Pen Needle) insulin regular human 100 unit/mL 1 sliding scale dose subcut 12/08/24 02/16/25 History (3 mL) subcutaneous pen (Novolin R USEASDIRECTD FlexPen) rosuvastatin 20 mg tablet 20 mg PO DAILY #90 tabs 12/08/24 02/16/25 Rx telmisartan 40 mg tablet 40 mg PO DAILY #90 tabs 12/08/24 02/16/25 Rx blood-glucose sensor (Dexcom G7 #9 ea 12/11/24 12/31/24 Rx Sensor device) insulin glargine U-300 conc 300 12 unit (0.04 mL) subcut DAILY 3 12/11/24 02/16/25 Rx unit/mL (1.5 mL) subcutaneous pen months #4.5 mL (Toujeo SoloStar U-300 Insulin) hydrochlorothiazide 12.5 mg capsule 12.5 mg PO DAILY 12/31/24 02/16/25 History Patient hx anesthesia problems: none Family hx anesthesia problems: none Results Review: All pre-operative results and documents have been reviewed as part of the pre-operative evaluation. 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 Osteopenia Primary osteoarthritis of both knees Testicular hypofunction Type 2 diabetes mellitus with hyperglycemia Surgical History Surgical History History of thyroidectomy with radioactive iodine Family History Family History Mother Family history of osteoporosis Hypertension Family history of Alzheimer's disease Family history of diabetes mellitus in first degree relative Cerebrovascular accident Patient's mother is Father Hypertension Family history of congestive heart failure Sibling Patient's sister is in good health Social History Social History (Reviewed 12/31/24 @ 11:34 by Mamie Nguyen [facility]) Smoking status: Never smoker Second hand tobacco smoke exposure: No Alcohol intake: never Substance use: never Substance use type: does not use Lack of Transportation: No Lack of Food: Never True Current Housing: I Have Housing Concerned About Future Housing: No Difficulty Paying Gas/Electric Bills: No Difficulty Paying for Meds: No Currently Unemployed: No Education: Associate Degree Difficulty w/ Childcare or Family Care: No Living arrangements: with family Spiritual care concerns: No Agree to blood products: Yes Anes - Eval Final PreProcedure Day of Procedure 02/16/25 10:42 Patient weight: normal Heart: regular rate and rhythm Lungs: clear to auscultation Airway: Mallampati scale Neurological: alert and oriented Last oral intake: >/= 8 hours Emergent: no Anesthetic plan: proceed Results Review: All pre-operative results and documents have been reviewed as part of the pre-operative evaluation. Informed Consent: The patient's anesthetic plan and its attendant risks and benefits were discussed with the patient/family/POA. Questions were solicited and answers provided to the satisfaction of the patient/family/POA.
--- NOTE | 2025-02-16 11:37 | PM.HPGS ---
History of Present Illness History of Present Illness Consent: Risks, benefits, and alternatives have been discussed and questions answered. Patient agrees to proceed with procedure. Chief complaint: neoplasm screening Narrative: Gilbert Dhillon is a 64 year old male here for screening colonoscopy, last one 10 years ago Review of Systems Review of Systems: All systems reviewed & are unremarkable except as noted in HPI and below PMFSH Past Medical History Medical History Pulmonary hypertension Sjogrens syndrome GERD (gastroesophageal reflux disease) Globus sensation Hypogonadism in male Insomnia Hypersomnolence disorder, persistent Skin lesions Cyst BOGDAN on CPAP Chronic fatigue Erectile dysfunction associated with type 2 diabetes mellitus Essential hypertension Hx of Graves' disease Hyperlipidemia Hypothyroidism (acquired) 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 Osteopenia Primary osteoarthritis of both knees Testicular hypofunction Type 2 diabetes mellitus with hyperglycemia Surgical History Surgical History History of thyroidectomy with radioactive iodine Family History Family History Mother Family history of osteoporosis Hypertension Family history of Alzheimer's disease Family history of diabetes mellitus in first degree relative Cerebrovascular accident Patient's mother is Father Hypertension Family history of congestive heart failure Sibling Patient's sister is in good health Social History Social History Smoking status: Never smoker Second hand tobacco smoke exposure: No Alcohol intake: never Substance use: never Substance use type: does not use Lack of Transportation: No Lack of Food: Never True Current Housing: I Have Housing Concerned About Future Housing: No Difficulty Paying Gas/Electric Bills: No Difficulty Paying for Meds: No Currently Unemployed: No Education: Associate Degree Difficulty w/ Childcare or Family Care: No Living arrangements: with family Spiritual care concerns: No Agree to blood products: Yes Meds Home Medications and Allergies Home Medications ?Medication ?Instructions ?Recorded ?Confirmed ?Type aspirin 81 mg capsule 81 mg PO DAILY 06/08/22 02/16/25 History cholecalciferol (vitamin D3) 25 25 mcg PO DAILY 09/12/23 02/16/25 History mcg (1,000 unit) tablet multivitamin (Daily Multi-Vitamin 1 tablet PO DAILY 09/12/23 02/16/25 History tablet) vitamin B complex (B 1 tablet PO DAILY 09/12/23 02/16/25 History Complex-Vitamin B12 tablet) calcium carbonate (Calcium 600) 600 mg PO DAILY 09/27/23 02/16/25 History modafinil 200 mg tablet 200 mg PO QAM #30 tabs 09/27/23 02/16/25 Rx Jardiance 25 mg tablet 25 mg PO QAM 90 days #90 tabs 01/16/24 02/16/25 Rx (empagliflozin) levothyroxine 137 mcg capsule 137 mcg PO DAILY 90 days #90 caps 03/19/24 02/16/25 Rx eszopiclone 3 mg tablet 3 mg PO QHS 90 days #90 tabs 09/12/24 02/16/25 Rx gabapentin 300 mg capsule 300 mg PO QHS #90 caps 09/12/24 02/16/25 Rx tadalafil 20 mg tablet 40 mg (2 x 20 mg) PO DAILY 09/19/24 02/16/25 Rx Pulmonary hypertension 90 days #180 tabs glucagon 3 mg/actuation nasal 3 mg intranasal ONCE PRN 09/24/24 02/10/25 Rx spray (Baqsimi) hypoglycemia #1 ea omeprazole 20 mg capsule,delayed 20 mg PO DAILY 09/24/24 02/16/25 History release tirzepatide 12.5 mg/0.5 mL 12.5 mg (0.5 mL) subcut WEEKLY #6 09/24/24 02/16/25 Rx subcutaneous pen injector mL (David) pen needle, diabetic 32 gauge x #100 ea 11/24/24 12/31/24 Rx 5/32 (BD Ultra-Fine Ange Pen Needle) insulin regular human 100 unit/mL 1 sliding scale dose subcut 12/08/24 02/16/25 History (3 mL) subcutaneous pen (Novolin R USEASDIRECTD FlexPen) rosuvastatin 20 mg tablet 20 mg PO DAILY #90 tabs 12/08/24 02/16/25 Rx telmisartan 40 mg tablet 40 mg PO DAILY #90 tabs 12/08/24 02/16/25 Rx blood-glucose sensor (Dexcom G7 #9 ea 12/11/24 12/31/24 Rx Sensor device) insulin glargine U-300 conc 300 12 unit (0.04 mL) subcut DAILY 3 12/11/24 02/16/25 Rx unit/mL (1.5 mL) subcutaneous pen months #4.5 mL (Touyesy SoloStar U-300 Insulin) hydrochlorothiazide 12.5 mg capsule 12.5 mg PO DAILY 12/31/24 02/16/25 History Allergies Allergy/AdvReac Type Severity Reaction Status Date / Time No Known Allergies Allergy Verified 02/16/25 09:52 Vital Signs Vital Signs - 24 hr 02/16/25 09:48 Temperature 97.5 F L Pulse Rate 86 Respiratory Rate 20 Blood Pressure 129/68 Pulse Oximetry 100 Oxygen Delivery Room Air Exam Const: General: comfortable and no acute distress HENMT: Face/Nose/Sinus: Normal nares present Eyes: General: appearance normal, both eyes and all related structures Neck: Neck: no JVD Resp: Auscultation: clear to auscultation bilaterally Cardio: Rate: regular rate Rhythm: regular rhythm GI: Inspection: non-distended GI Palp: Yes Soft to palpation Skin: General skin exam: normal color Neuro: General: gait normal Speech: normal speech Extrem: General: normal to inspection Psych: Mental Status: mental status grossly normal Assessment and Plan Assessment and plan (1) Colon cancer screening: Code(s): Z12.11 - Encounter for screening for malignant neoplasm of colon Status: Acute Assessment and Plan: colonoscopy
[2025-02-16 12:03] VITALS: BP 106/47; PULSE 87; RESP 21; O2SAT 100
[2025-02-16 12:13] VITALS: BP 128/71; PULSE 82; RESP 17; O2SAT 100
[2025-02-16 12:23] VITALS: BP 135/68; PULSE 87; RESP 16; O2SAT 100
--- NOTE | 2025-02-16 12:26 | SUR.PHASEII ---
1225 pt blood sugar 77 per continuous glucose monitor.
== END 2025-02-16 12:27 | disposition home or self-care (01) ==
PROVIDERS: PCP Nurse Practitioner Family; Referring Provider Nurse Practitioner Family; Visit Provider Internal Medicine Gastroenterology
PROC: 0DJD8ZZ Inspection of Lower Intestinal Tract, Via Natural or Artificial Opening Endoscopic (ICD-10-PCS; CPT 45378; principal; 2025-02-16 12:00)
DX: Z12.11 Encounter for screening for malignant neoplasm of colon (principal); I10 Essential (primary) hypertension; E03.9 Hypothyroidism, unspecified; E11.65 Type 2 diabetes mellitus with hyperglycemia; K21.9 Gastro-esophageal reflux disease without esophagitis; N52.9 Male erectile dysfunction, unspecified; M17.0 Bilateral primary osteoarthritis of knee; I27.20 Pulmonary hypertension, unspecified; M35.00 Sjogren syndrome, unspecified; E29.1 Testicular hypofunction; G47.00 Insomnia, unspecified; G47.19 Other hypersomnia; G47.33 Obstructive sleep apnea (adult) (pediatric); Z99.89 Dependence on other enabling machines and devices; E05.00 Thyrotoxicosis with diffuse goiter without thyrotoxic crisis or storm; M85.88 Other specified disorders of bone density and structure, other site; Z79.82 Long term (current) use of aspirin; Z79.84 Long term (current) use of oral hypoglycemic drugs; Z79.85 Long-term (current) use of injectable non-insulin antidiabetic drugs; Z79.4 Long term (current) use of insulin; Z98.890 Other specified postprocedural states; Z82.49 Family history of ischemic heart disease and other diseases of the circulatory system
CPT/HCPCS: 45378; J2003; J2704; J7120

== ENCOUNTER 2025-03-03 08:45 | Outpatient (CLI) | payer BC, OTHER, SELFPAY ==
--- OUTSIDE RECORDS SUMMARY | 2025-03-03 09:14 | XMS_ITS | Encounter Summary ---
Author Organization [facility] Healthcare Address [address] [place] [address] Care Team Providers Care Primary Care Physician Name Role Phone Melani Jara NP Primary Care Provider [phone] Reason for Visit * Reason Comments Follow-up Annual follow up Encounter Details Date Type Department Care Team (Late st Contact Info) Description 03/02/2025 8:00 AM CDT Office Visit [facility] [address] [place] [address] Aurelio Figueroa MD [address] [id number] Hypertension associated with diabetes (HCC) (Primary Dx); Hyperlipidemia associated with type 2 diabetes mellitus (HCC); BOGDAN (obstructive sleep apnea); Syncope and collapse Social History Tobacco Use Types Packs/Day Years Used Date Smoking Tobacco: Never Cigarettes Smokeless Tobacco: Never Alcohol Use Standard Drinks/Week Comments No 0 [...] on file Legal Sex Male 12:47 AM [employer] Gender Identity Not on file Sexual Orientation Not on file documented as of this encounter Last Filed Vital Signs Vital Sign Reading Time Taken Comments Blood Pressure 134/68 03/02/2025 8:11 AM CDT Pulse 77 03/02/2025 8:11 AM CDT Temperature - - Respiratory Rate - - Oxygen Saturation 98% 03/02/2025 8:11 AM CDT Inhaled Oxygen Concentration - - Weight 77.6 kg (171 lb) 03/02/2025 8:11 AM CDT Height 170.2 cm (5' 7 ) 03/02/2025 8:11 AM CDT Body Mass Index 26.78 03/02/2025 8:11 AM CDT documented in this encounter Progress Notes * Aurelio Figueroa MD - 03/02/2025 8:00 AM CDT Images from the original note were not included. [facility] DATE OF VISIT: 03/02/2025 CHIEF COMPLAINT Chief Complaint Patient presents with Follow-up Annual follow up HPI Gilbert Dhillon is a 64 y.o. male with an abnormal stress test. He is referred and I am seeing him today in consultation at the request of Dr. Barnes for further evaluation and treatment. He he has had chest pain for several years. Patient states that he has left-sided sharp chest pain lasting at times for up to a couple of hours. It is not gotten worse over the last few years. It does not radiatenor is it associated with other symptoms. He has been hospitalized for chest pain has had workup inthe past including several different stress tests. Patient has had fatigue for several years and has been diagnosed with thyroid disease, low testosterone, sleep apnea. With past 6-12 months though he is been markedly more fatigued than usual. He feels lightheaded and exhausted and extreme fatigue by doing simple things such as yd work. He has not passed out but will become lightheaded. No paroxysmal nocturnal dyspnea, unusual palpitations, edema. He did have an abnormal ECG portion of her stress test in 2017 which led to a perfusion study. Perfusion study was subsequently normal. Follow-up note 10/01/2020: He denies any chest pain, shortness breath, syncope, presyncope, paroxysmal nocturnal dyspnea, orthopnea, edema or palpitations. His biggest complaint is being tired. His lack of energy. Follow-up with THERAPIST PHYSICAL 03/31/2021: He is here for 6 month follow-up after needing to reschedule his appointment with Dr. Figueroa. About 2 months ago he began noticing palpitations. It feels like rapid irregular heartbeats in the center of the chest, episodes can last 10-15 minutes, it has been occurring more frequently and now occurs on a daily basis. There is no pattern to it, does not seem exertional, no other associated symptoms, he seems to notice it more at night. Has a history of Graves diseases/p thyroidectomy years ago , continues to follow with an client support administrator. Since his last visit here, he pursued evaluation by a scuba dive training instructor and was found to have a positive MINI titer and other lab work indicated Sjogren's syndrome. He is now on hydroxychloroquine. He has questions about the elevated LVEDP measured on his catheterization. 12-lead ECG performed in the office today was reviewed by me personally and showed sinus rhythm, normal axis and normal intervals, low voltage, rate 82 beats per minute Follow-up note 10/11/2021: A few weeks ago he had an episode in the shower while about 15 minutes into his shower in which she became dizzy, had narrowed vision and then passed out. He broke 3 ribs. He did go to his primary care provider who ordered an echo and a Holter monitor which was performed at [facility]. Both of which were essentially unremarkable (see below). He returns today feeli ng otherwise okay. He denies any syncope, presyncope, paroxysmal nocturnal dyspnea, orthopnea, edema or palpitations. No chest pain or shortness of breath. Follow-up note 04/19/2022: He states that he feels like ???crap?? . Feels tired in the morning. Hasbeen diagnosed with some rheumatological conditions which may include Sjogren's and Raynaud's. Seeing rheumatology. He denies any chest pain, shortness breath, syncope, presyncope, paroxysmal nocturnal dyspnea orthopnea, edema palps Follow-up note 02/22/2024: From a cardiac perspective he is feeling well and denies any chest pain,shortness breath, syncope, presyncope, paroxysmal nocturnal dyspnea, orthopnea, edema or palpitations. Follow-up note 03/02/2025: Returns today still with some significant tiredness and intolerance to CPAP. He tries but simply can not use routinely. He though denies any chest pain, shortness breath, syncope, presyncope, paroxysmal nocturnal dyspnea, orthopnea, edema palpitations MEDICAL HISTORY Past Medical History: Diagnosis Date Autoimmune disease 1994 Fatigue Graves disease 1994 Hyperlipidemia Hyperlipidemia Hypertension Hypertension Hypothyroidism Positive MINI (antinuclear antibody) 2020 Sleep apnea Type 2 diabetes mellitus (HCC) Social History Tobacco Use Smoking status: Never Smoker Smokeless tobacco: Never Used Vaping Use Vaping Use: Never used Substance Use Topics Alcohol use: No Comment: rarely Family History Problem Relation Age of Onset Diabetes type II Other Family history of Diabetes -Type II; Hypothyroidism Other Family history of Hypothyroidism; Diabetes Mother Alzheimer's disease Mother Heart disease Father Heart attack Father Early Father MEDICATIONS Medication List Accurate as of March 02, 2025 8:19 AM. If you have any questions, ask your nurse or doctor. CHANGE how you take these medications semaglutide 0.25 mg/0.5 mL auto-injector Commonly known as: WEGOVY What changed: Another medication with the same name was removed. Continue taking this medication, and follow the directions you see here. Changed by: Aurelio Figueroa MD CONTINUE taking these medications dextroamphetamine-amphetamine 10 mg tablet Commonly known as: ADDERALL doxepin 6 mg tablet empagliflozin 25 mg tablet Commonly known as: JARDIANCE Enteric Coated Aspirin 81 mg enteric coated tablet Generic drug: aspirin Take one by mouth one time per day eszopiclone 3 mg tablet Commonly known as: LUNESTA hydroCHLOROthiazide 12.5 mg tablet insulin aspart 100 unit/mL vial for injection Commonly known as: NovoLOG insulin glargine 300 unit/mL (1.5 mL) pen for injection Commonly known as: TOUJEO levothyroxine sodium 137 mcg capsule Commonly known as: TIROSINT modafiniL 200 mg tablet Commonly known as: PROVIGIL multivitamin tablet Take according to [id number] package directions NIACIN ORAL rosuvastatin 20 mg tablet Commonly known as: CRESTOR tadalafiL 20 mg tablet Commonly known as: CIALIS tamsulosin 0.4 mg extended release capsule Commonly known as: FLOMAX telmisartan 40 mg tablet Commonly known as: MICARDIS VITAMIN B-12 ORAL zolpidem CR 6.25 mg CR tablet Commonly known as: AMBIEN CR STOP taking these medications TRESIBA U-100 INSULIN SUBQ Stopped by: Aurelio Figueroa MD ALLERGIES No Known Allergies REVIEW OF SYSTEMS Review of Systems Constitutional: Negative for malaise/fatigue, weight gain and weight loss. HENT: Negative for hearing loss. Eyes: Negative for blurred vision and visual disturbance. Cardiovascular: Positive for syncope. Negative for chest pain, claudication, dyspnea on exertion, irregular heartbeat, leg swelling, near-syncope, orthopnea, palpitations and paroxysmal nocturnal dyspnea. Respiratory: Negative for cough, hemoptysis, shortness of breath, snoring, sputum production and wheezing. Endocrine: Negative for cold intolerance, heat intolerance and polyuria. Hematologic/Lymphatic: Does not bruise/bleed easily. Skin: Negative for color change and rash. Musculoskeletal: Negative for falls, joint pain, joint swelling and myalgias. Gastrointestinal: Negative for abdominal pain, heartburn, nausea and vomiting. Genitourinary: Negative for dysuria. Neurological: Negative for dizziness, focal weakness, headaches, light- headedness, numbness and weakness. Psychiatric/Behavioral: Negative for depression. The patient is not nervous/anxious. Allergic/Immunologic: Negative for environmental allergies. PHYSICAL EXAM Blood pressure 134/68, pulse 77, height 170.2 cm (5' 7 ), weight 77.6 kg (171 lb), SpO2 98%. Body mass index is 26.78 kg/m??. Physical Exam Vitals reviewed. HENT: Head: Normocephalic and atraumatic. Nose: Nose normal. Eyes: General: No scleral icterus. Conjunctiva/sclera: Conjunctivae normal. Cardiovascular: Rate and Rhythm: Normal rate and regular rhythm. Pulses: Intact distal pulses. Heart sounds: Normal heart sounds. No murmur heard. No friction rub. No gallop. Pulmonary: Effort: Pulmonary effort is normal. No respiratory distress. Breath sounds: Normal breath sounds. No wheezing or rales. Chest: Chest wall: No tenderness. Abdominal: General: Bowel sounds are normal. There is no distension. Palpations: Abdomen is soft. Tenderness: There is no abdominal tenderness. Musculoskeletal: General: Normal range of motion. Cervical back: Neck supple. Skin: General: Skin is warm and dry. Neurological: Mental Status: He is alert and oriented to person, place, and time. Psychiatric: Mood and Affect: Mood normal. LABS AND OTHER DIAGNOSTIC TESTS Lab Results Component Value Date WBC 6.7 09/08/2020 HGB 15.8 09/08/2020 HCT 47.4 09/08/2020 MCV 94.0 09/08/2020 Chemistry Component Value Date/Time SODIUM 142 09/08/2020 0722 POTASSIUM 4.4 09/08/2020 0722 CHLORIDE 104 09/08/2020 0722 CO2 29 09/08/2020 0722 BUNSER 16 09/08/2020 0722 CREATININE 0.63 (L) 09/08/2020 0722 GLUCOSE 93 09/17/2020 0942 GLUCOSE 120 09/08/2020 0722 Component Value Date/Time CALCIUM 9.4 09/08/2020 0722 No results found for: CHOL No results found for: HDL No results found for: LDL ] No results found for: LDLCALC No results found for: TRIG No results found for: CHOLHDL EKG 08/12/2020: Normal rate rhythm and axis. Normal EKG Echo 09/08/2020 Normal left ventricular systolic function. No focal wall motion abnormalities. Normal left ventricular size. Definity contrast agent used to visually enhance endocardial wall motion and contractility. Lot Number: [id number]. Mild concentric left ventricular hypertrophy. Impaired diastolic relaxation Grade I. Ejection fraction is visually estimated at 70-75 %. Ejection fraction is measured at 70 %. There is mild enlargement of left atrium. Mild mitral valve regurgitation. Mild pulmonary hypertension based on right ventricular systolic pressure. Estimated peak RVSP is 39 mmHg. Mild tricuspid regurgitation. Normal sinus rhythm. Myocardial perfusion study 07/16/2019: Normal: ejection fraction 67%. Myocardial perfusion study January 2017, normal with EF 70%. Echocardiogram 09/27/2021: EF 65-70% grade 1 diastolic dysfunction, mild tricuspid and pulmonic insufficiency. RVSP 42 Holter monitor 09/28/2021: Heart rate variability between 58 and 138 beats per minute with an average heart rate 82 beats per minute. One thousand forty-nine PACs, 3 PVCs. No pauses or complex arrhythmia Holter monitor March 2021: Average heart rate 81 beats per minute without complex arrhythmia or significant ectopy CATH 09/17/2020 Normal coronary arteries without angiographically significant focal stenosis. Normal LV systolic function; LVEF about 70%; elevated LVEDP at 27 mmHg. ECHO 06/2023 Left Ventricle: Left ventricle size is normal. Normal wall thickness. Ventricular mass is normal. Normal systolic function. EF by 2D [place] biplane is 69%. Normal wall motion. Normal diastolic function. Right Ventricle: Right ventricle size is upper limits of normal. Normal systolic function. Tricuspid Valve: Mild regurgitation. The pulmonary artery systolic pressure is normal (under 35 mmHg). Estimated RVSP is 30.4 mmHg. ASSESSMENT Diagnoses and all orders for this visit: Hypertension associated with diabetes (CMS/HCC) (Primary) At goal Hyperlipidemia associated with type 2 diabetes mellitus (CMS/HCC) Near goal BOGDAN (obstructive sleep apnea) Try CPAP but is looking at having iNSPIRE Family history of premature coronary artery disease Dyspnea on exertion Possibly related to elevated LVEDP: Improved Atypical chest pain Asymptomatic Syncope and collapse Likely vasovagal related and no recurrence PLAN/RECOMMENDATIONS He is stable. Cholesterol is well controlled with rosuvastatin. Recent LDL of 71. Continue rosuvastatin. Blood pressure is also controlled with hydrochlorothiazide. Continue his Jardiance for combination of his diabetes as well as his elevated LVEDP. Follow-up in 1 year or sooner as clinically indicated Aurelio Figueroa MD, FACC documented in this encounter Plan of Treatment Not on file documented as of this encounter Visit Diagnoses Diagnosis Hypertension associated with diabetes (HCC)- Primary Unspecified essential hypertension Hyperlipidemia associated with type 2 diabetes mellitus (HCC) BOGDAN (obstructive sleep apnea) Obstructive sleep apnea (adult) (pediatric) Syncope and collapse documented in this encounter Discontinued Medications Medication Sig Discontinue Reason Start Date End Da te insulin degludec (TRESIBA U-100 INSULIN SUBQ) Inject 20 Units under the skin daily Patient Reported 03/02/2025 semaglutide (OZEMPIC SUBQ) Inject 1 mg under the skin once a week Sunday Patient Reported 03/02/2025 documented as of this encounter Historical Medications * This list may reflect changes made after this encounter. dextroamphetamin e-amphetamine (ADDERALL) 10 mg tablet Take 1 tablet (10 mg total) by mouth as needed eszopiclone (LUNESTA) 3 mg tabletIndication s:Insomnia Take 1 tablet (3 mg total) by mouth nightly Take immediately before bedtime tadalafiL (CIALIS) 20 mg tablet Take 2 tablets (40 mg total) by mouth daily as needed for erectile dysfunction telmisartan (MICARDIS) 40 mg tablet Take 1 tablet (40 mg total) by mouth daily insulin glargine (TOUJEO) 300 unit/mL (1.5 mL) pen for injection Inject under the skin semaglutide (WEGOVY) 0.25 mg/0.5 mL auto-injector Inject 0.25 mg under the skin added in this encounter Care Teams Primary Care Physician Relationship Specialty Start Date End Date WinterMelani NP [address] [facility] 1 [facility] [address] [place] [id number] PCP - General Nurse Practitioner 02/05/25 documented as of this encounter
--- OUTSIDE RECORDS SUMMARY | 2025-03-03 09:14 | XMS_ITS | Clinical Summary ---
Author Organization [facility] Address [address] [place] [id number] Care Team Providers Care Technical Specialist Cytology Name Role Phone Melani Jara NP Primary Care Provider [phone] Allergies No known active allergies Medications multivitamin tablet tablet Take according to [id number] r package directions 0 0 8 Active aspirin (ENTERIC COATED ASPIRIN) 81 mg tablet Take one by mouth one time per day 0 0 8 Active zolpidem CR (AMBIEN CR) 6.25 mg CR tabletIndicati ons:Insomnia Take 1 tablet (6.25 mg total) by mouth nightly as needed for sleep Active modafiniL (PROVIGIL) 200 mg tablet Take 1 tablet (200 mg total) by mouth daily Active hydroCHLOROthi azide (HYDRODIURIL) 12.5 mg tablet Take 1 tablet (12.5 mg total) by mouth daily Active empagliflozin (JARDIANCE) 25 mg tabletIndicati ons:type 2 diabetes mellitus 1 tablet (25 mg total) daily Active insulin aspart U-100 (NovoLOG) 100 unit/mL injection Inject under the skin 3 (three) times a day before meals 5-15 units Active cyanocobalamin , vitamin B-12, (VITAMIN B-12 ORAL) Take by mouth Activ e NIACIN ORAL Take by mouth Acti ve rosuvastatin (CRESTOR) 20 mg tablet Take 1 tablet (20 mg total) by mouth daily 3 Active tamsulosin (FLOMAX) 0.4 mg extended release capsule Take 1 capsule (0.4 mg total) by mouth nightly 4 Active levothyroxine sodium (TIROSINT) 137 mcg capsule Take 1 capsule (137 mcg total) by mouth cumulative effects analyst before breakfast 4 Active doxepin 6 mg tablet Take 1 tablet by mouth daily as needed 4 Active semaglutide (WEGOVY) 0.25 mg/0.5 mL auto-injector Inject 0.25 mg under the skin Active insulin glargine (TOUJEO) 300 unit/mL (1.5 mL) pen for injection Inject under the skin Active telmisartan (MICARDIS) 40 mg tablet Take 1 tablet (40 mg total) by mouth daily Active tadalafiL (CIALIS) 20 mg tablet Take 2 tablets (40 mg total) by mouth daily as needed for erectile dysfunction Active eszopiclone (LUNESTA) 3 mg tabletIndicati ons:Insomnia Take 1 tablet (3 mg total) by mouth nightly Take immediately before bedtime Active dextroamphetam ine-amphetamin e (ADDERALL) 10 mg tablet Take 1 tablet (10 mg total) by mouth as needed Active semaglutide (OZEMPIC SUBQ) Inject 1 mg under the skin once a week Sunday03/02/20 25 Discontin ued(Patie nt Reported) insulin degludec (TRESIBA U-100 INSULIN SUBQ) Inject 20 Units under the skin daily 03/02/20 25 Discontin ued(Patie nt Reported) Active Problems Problem Noted Date Diagnosed Date [...] Encounters Date Type Department Care Team Description 03/02/2025 8:00 AM CDT Office Visit [facility] Cardiology [address] [place] [address] Aurelio Figueroa MD Hypertension associated with diabetes (HCC) (Primary Dx); Hyperlipidemia associated with type 2 diabetes mellitus (HCC); BOGDAN (obstructive sleep apnea); Syncope and collapse 03/02/2025 Orders Only [facility] Medical [facility] Cardiology [address] [place] [address] ProviderCarroll MD 02/09/2025 [facility]phone [facility] - [facility] [address] [facility] [address] [facility] [address] [place] [address] [place] [address] Meaghan Perez, MS 01/28/2025 Telephone [facility] ([facility] - [facility] [address] [facility] 11th [place] [address] [place] [address] Meaghan Perez, MS 01/19/2025 Orders Only [facility] Pulmonary [address] [facility] 8th [place] [address] [place] [address] Car Cruz MD Pulmonary hypertension (HCC) (Primary [...] Edward Alzheimer's disease Mother Toshiko Diabetes Mother Kortney Diabetes type II Other 1 Family hist [...] on file 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 Gender Identity Not on file Sexual Orientation Not on file Obstetrics History Last Filed Vital Signs Vital Sign Reading Time Taken Comments Blood Pressure 134/68 03/02/2025 8:11 AM CDT Pulse 77 03/02/2025 8:11 AM CDT Temperature 36.8 C (98.3 F) 09/17/2020 7:03 AM WEB PRODUCTION MANAGER Respiratory Rate 16 09/17/2020 7:03 AM WEB PRODUCTION MANAGER Oxygen Saturation 98% 03/02/2025 8:11 AM CDT Inhaled Oxygen Concentration - - Weight 77.6 kg (171 lb) 03/02/2025 8:11 AM CDT Height 170.2 cm (5' 7 ) 03/02/2025 8:11 AM CDT Body Mass Index 26.78 03/02/2025 8:11 AM CDT Plan of Treatment Health Maintenance [...] 09/17/2020 Well Visit 65+ 2024 Influenza Vaccine (Season Ended) 2025 09/09/2019, 09/13/1998, 09/11/1997 Lipid Panel 01/14/2026 01/14/2025, 04/1 12/2023, 10/11/2021, Additional history exists Procedures Procedure Name Priority Date/Time Associated Diagnosis Comments LIPID PANEL Routine 01/14/2025 9:48 AM WEB PRODUCTION MANAGER EGFR Routine 09/08/2020 7:22 AM CDT Atypical chest pain Encounter for pre-operative laboratory testing from Last 3 Months or Most Recently Relevant to Health Maintenance Results * Lipid panel (01/14/2025 9:48 AM WEB PRODUCTION MANAGER) SCRIBED Cholesterol, Total 137 <200 [facility] SCR[facility] HDL 52 >40 [facility] LDL 71 <100 [facility] SCR[facility] Triglycerides 61 <150 [facility] Blood us Historical Provider LAB BLOOD ORDERABLES Edit ed Result - Final [facility] * eGFR (09/08/2020 7:22 AM CDT) eGFR [...] Aurelio Figueroa MD LAB BLOOD ORDERABLES [place] [address] [address] [place] [address] from Last 3 Months or Most Recently Relevant to Health Maintenance Insurance [address] [place] [id number] [employer] [place] [address] [place] [id number] [employer] [place] [employer]SS[employer] ADVANTAGE CHOICE PPO [facility] ESS[employer] ADVANTAGE CHOICE PPO Care Teams Technical Specialist Cytology Relationship Specialty Start Date End Date Melani Jara NP [address] [place], [place] [id number] PCP - General Nurse Practitioner 02/05/25
--- OUTSIDE RECORDS SUMMARY | 2025-03-03 09:14 | XMS_ITS | Continuity of Care Document ---
Author Name [facility] Organization [facility] Care Team Providers Care Informatica Mdm Developer Name Role Phone [facility] Unavailable Unavailable Problems Combined list of problems from Department of Defense and Veterans Affairs facilities. It does not include entries that were removed or entered in error. 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 To also use Tylenol or Motrin for fever aor body aches. Fluids, Rest. [facility] EUSTACHIAN TUBE DYSFUNCTION Active Condition Pt has no signs of pneumonia or sinusitis at this time. Asked him to return for f/c or concerns. Entex PSE and Robitussin given for symptomatic relief. Asked pt to f/u with Dr Lockwood for diabetes and hypothyroid f/u [facility] Medications Combined list of outpatient medications from [...] [100EA] See Instruct ions, # 100 EA, 1 total refill(s ), Hard Stop Ordered 03/19/2025 2023 100.0 Ambulat ory Pharmac y celecoxib 200 mg capsule 200 mg, Oral, Daily, # 30 EA, 5 total refill(s ), Hard Stop Oral (given by mouth) Complet ed 04/30/2024 4 2023 30.0 Ambulat ory Pharmac y CRESTOR (BRAND) 20 MG ORAL TAB Do not take with milk, antacids , or iron.Eleazar e or use exactly as directed .Do not take if . 12/12/2024 [id number] 4 [address] [place] [address] Eliseo JOSEPH ([facility]) EMPAGLIFLOZ IN 25 MG ORAL TAB Check with your doctor before becoming . 01/15/2025 [id number] 4 [address] [place] [address] Eliseo JOSEPH ([facility]) eszopiclone 3 mg tablet 3 mg, See [...] 3 2023 90.0 Ambulat ory Pharmac y IRX: Tadalafil 20 mg vs Placebo Tablet Oral Take or use exactly as directed .Obtain advice for OTCs.[place] id nitrates . 01/03/2025 [id number] 4 2023 180 [facility] Eliseo JOSEPH ([facility]) Jardiance 25 mg tablet See dose instruct [...] 4 2023 90.0 Ambulat ory Pharmac y MODAFINIL (modafinil) , 200 MG, TABLET, ORAL, [employer] 30 ea. BOTTLE Active [id number] 4 2023 30 Pharmac y Data Transac [...] 4 2024 56.0 Ambulat ory Pharmac y OZEMPIC (semaglutid e), 2MG/0.75ML, PEN INJCTR, SUBCUT, MARIE NORDISK, 3 ml SYRINGE Active [id number] 4 2023 3 Pharmac y Data Transac [...] 4 2023 90.0 Ambulat ory Pharmac y Tadalafil (Adcirca) Tablet 20 mg Oral Take or use exactly as directed .Obtain advice for OTCs.[place] id nitrates . 01/03/2025 [id number] 4 2023 180 [facility] Eliseo JOSEPH ([facility]) tadalafil (eqv-adcirc a) 20 mg tablet 40 [...] 4 2024 180.0 Ambulat ory Pharmac y TADALAFIL (tadalafil) , 20 MG, TABLET, ORAL, 'S LAB, 60 ea. BOTTLE Active [id number] 4 2023 30 Pharmac y Data Transac tion Service Facilit y TADALAFIL (tadalafil) , 20 MG, TABLET, ORAL, 'S LAB, 60 ea. BOTTLE Active [id number] 4 2023 30 Pharmac y Data Transac tion Service Facilit y tamsulosin 0.4 mg capsule 0.4 mg, Oral, # 30 EA, 11 total refill(s ), Hard Stop Oral (given by mouth) Complet ed 06/19/2024 3 2023 30.0 Ambulat ory Pharmac y telmisartan (U/D) 40 MG ORAL TAB Be careful if taking OTCs.Eleazar e or use exactly as directed .Do not take if . 12/12/2024 [id number] 4 2023 90 [facility] Eliseo JOSEPH ([facility]) telmisartan 40 mg tablet 40 mg, Oral, [...] 4 2023 4.5 Ambulat ory Pharmac y Allergies, Adverse Reactions, Alerts Combined list of allergies from Department of Defense and Veterans Affairs facilities. It does not include entries that were removed or entered in error. Substance Category Reaction Severity Reaction type Status Date Reported Comments Source No Known Allergies Drug allergy (disorder) active 10/18/2017 [facility] Immunizations Combined list of available immunizations from the Department of Defense and Veterans Affairs facilities. Immunization Series Date Given Administered By Site Reaction Lot Number CVX Code Drug Sharepoint Designer Developer Status Comments Source influenza virus vaccine, whole virus [id number] [facility] complet ed influenza virus vaccine, whole virus 09/13/98 Given Ambulat ory Pharmac y influenza virus vaccine, whole virus [id number] 16 [facility] complet ed influenza virus vaccine, whole virus 09/13/98 Given Ambulat ory Pharmac y influenza virus vaccine, whole virus 0 [id number] 16 [facility] (CON) complet ed influenza virus vaccine, whole virus DoD hepatitis A adult vaccine 1996 [id number] 52 [employer] complet ed hepatitis A adult vaccine 09/11/97 Given Ambulat ory Pharmac y tetanus-dipht h toxoids (Td) adult/adol 1996 [id number] [facility] complet ed tetanus-d iphth toxoids (Td) adult/ado l 09/11/97 Given Ambulat ory Pharmac y influenza virus vaccine, whole virus 1996 [id number] 16 [facility] complet ed influenza virus vaccine, whole virus 09/11/97 Given Ambulat ory Pharmac y hepatitis A adult vaccine 1996 [id number] 52 GlaxoSmithKli ne complet ed hepatitis A adult vaccine 09/11/97 Given Ambulat ory Pharmac y tetanus-dipht h toxoids (Td) adult/adol 1996 [id number] 09 [facility] complet ed tetanus-d iphth toxoids (Td) adult/ado l 09/11/97 Given Ambulat ory Pharmac y tetanus and diphtheria toxoids, adsorbed, preservative free, for adult use (2 Lf of tetanus toxoid and 2 Lf of diphtheria toxoid) 0 1996 [id number] [facility] (CON) complet ed tetanus and diphtheri a toxoids, adsorbed, preservat duke free, for adult use (2 Lf of tetanus toxoid and 2 Lf of diphtheri a toxoid) [facility] influenza virus vaccine, whole virus 0 1996 [id number] 16 [facility] (CON) complet ed influenza virus vaccine, whole virus DoD hepatitis A vaccine, adult dosage 2 [address] [id number] [address] [place] [address] (SKB) complet ed hepatitis A vaccine, adult [...] () complet ed vaccinia (smallpox ) vaccine [facility] poliovirus vaccine, live, oral 1978 [id number] 02 [facility] complet ed polioviru s vaccine, live, oral 05/11/79 Given Ambulat ory Pharmac y poliovirus vaccine, live, oral 1978 [id number] 02 [facility] complet ed polioviru s vaccine, live, oral 05/11/79 Given Ambulat ory Pharmac y trivalent poliovirus vaccine, live, oral 0 1978 [id number] 02 [facility] (CON) complet ed trivalent polioviru s vaccine, live, oral DoD measles/mumps /rubella virus vaccine 1977 [id number] 03 [facility] complet ed measles/m umps/rube lla virus vaccine 07/08/78 Given Ambulat ory Pharmac y measles/mumps /rubella virus vaccine 1977 [id number] 03 [facility] complet ed measles/m umps/rube lla virus vaccine 07/08/78 Given Ambulat ory Pharmac y measles, mumps and rubella virus vaccine 0 1977 [id number] 03 [facility] (CON) complet ed measles, mumps and rubella virus vaccine DoD Encounters Combined list of: 1) Encounters from Department of Veterans Affairs facilities going backup to the last 18 months, not all [place] inpatient encounters are included; 2) Encounters from the Department of Defense facilities going backup to 280 months. Location Location Details Encounter Type Encounter Number Reason For Visit Attending Provider ADM Date DC Date Status Disposition Source [address] [place] [address] Eliseo [facility]Sco tt [facility] FAMRES Tm Blue) OUTPATIENT [id number] cold (7 dys) RORY COWAN 01/23 Released w/o Limitations [address] [place] [address] Eliseo [facility])(S cott [facility] Tm Blue) [address] [place] [address] Eliseo [facility])(Sco tt [facility] FAM[facility] Tm Blue) OUTPATIENT [id number] CONGEST ION,COU GH (GREEN MUCUS) SHAHRIAR COLLADO 04/21 Released w/o Limitations [address] [place] [address] Eliseo [facility])(S cott [facility] FAM[facility] Tm Blue) [address] [place] [address] Eliseo [facility])(Sco tt [facility] Fam Res Tm Green) OUTPATIENT [id number] f/u diabeti c patient [id number] ATILIO HUMMEL 10/23 Released w/o Limitations [address] [place] [address] Eliseo [facility]S cott [facility] Fam Res Tm Green) [address] [place] [address] Eliseo [facility])(Sco tt [facility] Fam Res Tm Green) OUTPATIENT [id number] ED and psa check ATILIO HUMMEL 08/21 Released w/o Limitations [address] [place] [address] Eliseo [facility])(S [facility] Res Tm Green) [address] [place] [address] Eliseo [facility])(Sco tt [facility] Green) TELE CONSULT [id number] Notes Entered by: ATILIO HUMMEL 30 Oct 2013 0853 ------- ------- ------- ------- -- Colonos copy results ATILIO HUMMEL 10/[address] [place] [address] Eliseo [facility])(S [facility] Res Tm Green) [address] [place] [address])(Hio [facility] Green) OUTPATIENT [id number] Discuss ion on memory loss x yr, bumps on head x yr 550.438 7 NAOMY COREY 05/28 Released w/o Limitations [address] [place] [address])(S [facility] Res Tm Green) [address] [place] [address])(Sco tt Internal Medicine Tm) OUTPATIENT [id number] x/b [facility] both ears painful ,sore throat, congest ion,cou gh [phone] PATRIC PARSONS 01/24 Released w/o Limitations [address] [place] [address])(S cott Interna l Medicin e Tm) [address] [place] [address])(War rior Op Med Cln Tm A Ad) TELE CONSULT [id number] Notes Entered by: Barry HERNANDEZ 04 Apr 2016 1223 ------- ------- ------- ------- -- Sx - Bad sore throat / Blessin g - Alexandrearo ne / JAY NORTH 04/[address] [place] [address])(W arrior Op Med Cln Tm A Ad) [address] [place] [address])(Sco tt Disease Managemen t) TELE CONSULT [id number] Notes Entered by: NACHO MATAMOROS 2016 1505 ------- ------- ------- ------- -- Pt showing on diab overdue list NACHO MATAMOROS Citlaly 04/[address] [place] [address])(S cott Disease Managem ent) [address] [place] [address])(Sco tt Disease Managemen t) TELE CONSULT [id number] Notes Entered by: Sebastian BATRES 10 May 2017 1353 ------- ------- ------- ------- -- Diabeti c Managem ent TOBIAS BATRES 05/[address] [place] [address])(S cott Disease Managem ent) [address] [place] [address])(War rior Op Med Cln Tm A Ad) OUTPATIENT [id number] F/u on BP meds, 877.442 0 SHY MATSON 10/17 Released w/o Limitations [address] [place] [address])(W arrior Op Med Cln Tm A Ad) [address] [place] [address])(Sco tt Disease Managemen t) TELE CONSULT [id number] Notes Entered by: Sebastian BATRES 13 May 2018 1105 ------- ------- ------- ------- -- Disease Managem ent [phone] TOBIAS BATRES 05/[address] [place] [address])(S cott Disease Managem ent) [facility] Outpatient Encounter [id number] 06/25 [facility] N 5C-375 [facility] janet Between Visit [id number] 09/23 Discharge Disposition: Home or Self Care 0055C-3 [facility]th [facility] 0055C-375 th [facility] janet Between Visit [id number] 09/24 Discharge Disposition: Home or Self Care 0055C-3 dalton Gomes 0055C-375 th [facility] janet Between Visit [id number] 11/24 Discharge Disposition: Home or Self Care Lexy5C-3 75th [facility] G[facility] 0055C-375 th [facility] janet Between Visit [id number] 11/25 Discharge Disposition: Home or Self Care Lexy5C-3 [place] [facility] Gomes 0055C-375 th [facility] janet Between Visit [id number] 12/16 Discharge Disposition: Home or Self Care Lois-3 [facility] Procedures Combined list of: 1) Procedures from Department of Veterans Affairs facilities going back up to thelast 18 months, not all VA non-surgical procedures are included; 2) All procedures from the Department of Defense facilities. Procedure Procedure Type Code Date Perfomer Comments Sour e TELE ASSESS & MGT SRV PROV QUAL NONPHYS HLTH CARE PRO TO EST PAT,PARENT,GUARD NOT ORIG REL ASSESS & MGT SRV PROV W/IN PREV 7 DAYS NOR LEAD ASSESS & MGT SRV/PX W/IN NXT 24H/SOON APT; 11-20 MIN MED DIS 05/13/20 18 [facility] TELE ASSESS & MGT SRV PROV QUAL NONPHYS HLTH CARE PRO TO EST PAT,PARENT,GUARD NOT ORIG REL ASSESS & MGT SRV PROV W/IN PREV 7 DAYS NOR LEAD ASSESS & MGT SRV/PX W/IN NXT 24H/SOON APT; 11-20 MIN MED DIS 05/10/20 17 [facility] TELEPHONE CALLS BY A REGISTERED NURSE TO A DISEASE MANAGEMENT PROGRAM MEMBER FOR MONITORING PURPOSES; PER MONTH 04/27/20 16 [facility] TELE ASSESS & MGT SRV PROV QUAL NONPHYS HLTH CARE PRO TO EST PAT,PARENT,GUARD NOT ORIG REL ASSESS & MGT SRV PROV W/IN PREV 7 DAYS NOR LEAD ASSESS & MGT SRV/PX W/IN NXT 24 HR/SOON APT;5-10 MIN MED DIS 04/04/20 16 [facility] OPHTHALMOLOGICAL SERVICES: MEDICAL EXAMINATION AND EVALUATION, WITH INITIATION OR CONTINUATION OF DIAGNOSTIC AND TREATMENT PROGRAM; COMPREHENSIVE, ESTABLISHED PATIENT, 1 OR MORE VISITS 12/18/19 04 DoD Non-Physician Phone Call To Pt/Provider Intermed (11-20 min) Non-Physician Phone Call To Pt/Provider Intermed (11-20 min) [id number] 05/13/20 18 BATRES, TOBIAS Smith [facility] Disease management program, follow-up/chi e ment 05/13/20 18 BATRES, TOBIAS Smith [facility] Patient Counseling Medical Management Individual Patient Patient Counseling Medical Management Individual Patient [id number] 05/13/20 18 BATRES, TOBIAS Smith [facility] Non-Physician Phone Call To Pt/Provider Intermed (11-20 min) Non-Physician Phone Call To Pt/Provider Intermed (11-20 min) [id number] 05/10/20 17 BATRES, TOBIAS Smith [facility] Disease management program, follow-up/chi e ment 05/10/20 17 BATRES, TOBIAS Smith [facility] Patient Counseling Medical Management Individual Patient Patient Counseling Medical Management Individual Patient [id number] 05/10/20 17 BATRES, TOBIAS Smith [facility] Telephone calls by a registered nurse to a disease management program member for monitoring purposes; per month 04/27/20 16 NACHO MATAMOROS Non-Physician Phone Call To Patient/Provider Brief (5-10min) Non-Physician Phone Call To Patient/Provide r Brief (5-10min) [id number] 04/27/20 16 NACHO MATAMOROS [facility] Non-Physician Phone Call To Patient/Provider Brief (5-10min) Non-Physician Phone Call To Patient/Provide r Brief (5-10min) [id number] 04/04/20 16 JAY NORTH [facility] No data available for this section Ambulatory Pharmacy Social History Combined list of available smoking, tobacco, and other social history from Department of Defense and Veterans Affairs facilities. Social History Type Response Date Comment Sour e This section is an empty social [...] Plan No data available for this section 03/03/2025 Ambulatory Pharmacy Functional Status Combined list of recent functional and cognitive assessments recorded at Department of Defense and Veterans Affairs (VA).VA Functional [place] Measurement (FIM) Scale: 1 = Total Assistance (Subject = 0% +), 2 = Maximal Assistance (Subject = 25% +), 3 = Moderate Assistance (Subject = 50% +), 4 = Minimal Assistance (Subject = 75% +), 5 = Supervision, 6 = Modified Caribou (Device), 7 = Complete [place] (Timely, Safely). Assessment Date/Time Source Assessment Type Assessment Skill Assessment Score Assessment Details No data available for this section
--- OUTSIDE RECORDS SUMMARY | 2025-03-03 09:14 | XMS_ITS | Referral Summary ---
Author Organization [facility] Address [address] [place] [phone] Care Team Providers Care Purchasing Assistant Name Role Phone Melani Jara NP Primary Care Provider [phone] Encounters Date Type Department Care Team Description 03/02/[address] [facility] Cardiology [address] [place] [phone] ProviderCarroll MD 03/02/2025 8:00 AM CDT Office Visit [facility] Cardiology [address] [place] [phone] Aurelio Figueroa MD Hypertension associated with diabetes (HCC) (Primary Dx); Hyperlipidemia associated with type 2 diabetes mellitus (HCC); BOGDAN (obstructive sleep apnea); Syncope and collapse 02/09/2025 Telephone [facility] ([facility] [address] Advanced Medicine [address] [place] [address] [place] [address] Meaghan Perez, MS 01/28/2025 Telephone [facility] Advanced [facility] ([facility] [address] Advanced Medicine [address] [place] [address] [place] [address] Meaghan Perez, MS 01/19/[address] [facility] [address] Advanced Medicine [address]th [place] [address] [place] [address] Car Cruz MD Pulmonary hypertension (HCC) (Primary Dx) from Last 3 Months Allergies No known active allergies Medications multivitamin tablet tablet Take according to [id number] r package directions 0 0 8 Active [...] 1 capsule (137 mcg total) by mouth borderer before breakfast 4 Active doxepin 6 mg [...] on file Legal Sex Male 12:47 AM SCRAP WHEELER Gender Identity Not on file Sexual Orientation Not on file Last Filed Vital Signs Vital Sign Reading Time Taken Comments Blood Pressure 134/68 03/02/2025 8:11 AM CDT Pulse 77 03/02/2025 8:11 AM CDT Temperature 36.8 C (98.3 F) 09/17/2020 7:03 AM SCRAP WHEELER Respiratory Rate 16 09/17/2020 7:03 AM SCRAP WHEELER Oxygen Saturation 98% 03/02/2025 8:11 AM CDT Inhaled Oxygen Concentration - - Weight 77.6 kg (171 lb) 03/02/2025 8:11 AM CDT Height 170.2 cm (5' 7 ) 03/02/2025 8:11 AM CDT Body Mass Index 26.78 03/02/2025 8:11 AM CDT Plan of Treatment Not on file Procedures Procedure Name Priority Date/Time Associated Diagnosis Comments LIPID PANEL Routine 01/14/2025 9:48 AM SCRAP WHEELER EGFR Routine 09/08/2020 7:22 AM CDT Atypical chest pain Encounter for pre-operative laboratory testing from Last 3 Months or Most Recently Relevant to Health Maintenance Results * Lipid panel (01/14/2025 9:48 AM SCRAP WHEELER) SCRIBED Cholesterol, Total 137 <200 [facility] SCRIBED [...] mL/min/1.73m2 *Relative to young adult level If -Angolan multiply value by 1.16. Estimated glomerular filtration [...] MD LAB BLOOD ORDERABLES Olena lovell Result [facility] [address] [address] Department of Laboratories [place], [place] [id number] from Last 3 Months or Most Recently Relevant to Health Maintenance Insurance [employer] [facility] [employer] [place] [employer] [place] [employer] [place] [employer] P[employer] Care Teams Purchasing Assistant Relationship Specialty Start Date End Date Melani Jara NP [address] [place] [address] PCP - General Nurse Practitioner 02/05/25
--- OUTSIDE RECORDS SUMMARY | 2025-03-03 09:14 | XMS_ITS | Encounter Summary ---
Author Organization [facility] Healthcare Address [address] [place] [address] Care Team Providers Care Chief Development Officer Name Role Phone Melani Jara NP Primary Care Provider [phone] Encounter Details Date Type Department Care Team (Late st Contact Info) Description 03/02/2025 Orders Only [facility] Cardiology [address] [place] [address] ProviderCarroll MD [address] [place], [place] [id number] Social History Tobacco Use Types Packs/Day Years [...] on file Legal Sex Male 12:47 AM BOTTOM TURNER Gender Identity Not on file Sexual Orientation Not on file documented as of this encounter Plan of Treatment Not on file documented as of this encounter Procedures Procedure Name Priority Date/Time Associated Diagnosis Comments LIPID PANEL Routine 01/14/2025 9:48 AM BOTTOM TURNER documented in this encounter Results * Lipid panel (01/14/2025 9:48 AM BOTTOM TURNER) SCRIBED Cholesterol, Total 137 <200 [facility] SCRIB[facility] HDL 52 >40 [facility] SCRIBED LDL 71 <100 [facility] SCRIBED Triglycerides 61 <150 [facility] Blood us Historical Provider LAB BLOOD ORDERABLES Edit ed Result - Final [facility] documented in this encounter Visit Diagnoses Not on filedocumented in this encounter Care Teams Chief Development Officer Relationship Specialty Start Date End Date Melani Jara NP [address] [place] [address] PCP - General Nurse Practitioner 02/05/25 documented as of this encounter
--- OUTSIDE RECORDS SUMMARY | 2025-03-03 09:14 | XMS_ITS | Clinical Summary ---
Author Organization [facility] Address [address] [place] [address] Care Team Providers Care Tile Mechanic Helper Name Role Phone Jerome Barnes MD Primary Care Provider [phone] Social History Tobacco Use Types Packs/Day Years [...] Td Vaccines ( 1 - Tdap) 1978 Pneumococcal Vaccine: 50+ Ye ars (1 of 1 - PCV) 2009 Zoster Vaccines (1 of 2) 2009 COVID-19 Vaccine ( - 2023-2 5 season) 2024 RSV Immunization [...] age to complete this topic Care Teams Tile Mechanic Helper Relationship Specialty [place] [address] [facility] [place] [place] [address] PCP - General 10/24/13
--- OUTSIDE RECORDS SUMMARY | 2025-03-03 09:15 | XMS_ITS | Clinical Summary ---
Author Organization [facility] Address [address] [facility] 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 This disclosure is being madepursuant to the Care Everywhere program and may not contain all information available regarding this patient. Last updated 18.[facility] Allergies No known active allergies Medications * Be aware that medications may not be up to date on this document. Alwaysverify current medications with the patient. cyanocobalamin (VITAMIN B-12) 100 MCG tablet Activ e empagliflozin (JARDIANCE) 25 MG tablet 1 (one) tablet once daily Active TRESIBA FLEXTOUCH 200 UNIT/ML pen INJECT 18 UNITS UNDER THE SKIN EVERY MORNING 1 Active B-D ULTRAFINE III SHORT PEN 31G X 8 MM needle USE FIVE TIMES DAILY DIRECTED WITH INJECTIONS 1 Active modafinil (PROVIGIL) 200 MG tablet Take 1 (one) tablet by mouth once daily Active ASPIRIN 81 PO Active ibuprofen (MOTRIN) 600 MG tablet Take 1 (one) tablet by mouth every 6 hours as needed for Pain Active dextroamphetami ne (DEXEDRINE) 10 MG tablet Take 1 (one) tablet by mouth once daily 1 Active eszopiclone (Lunesta) 3 MG tablet Take 1 (one) tablet by mouth as needed 2 Active ketoconazole (Nizoral) 2 % shampoo Apply to affected area once daily 120 mL 5 4 Active Active Problems Problem Noted Date [...] sleep apnea) 08/12/2020 Overview (02/27/2023): [facility] THERAPEUTIC STUDY Sleep Architecture: During this therapeutic [...] Overview (08/01/2022): DMII WO CMP UNCNTRLD Immunizations Immunization Administration Dates Next Due Covid Moderna primary [...] at Not on file Legal Sex Male 8:26 AM 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 FINISHER Gender Identity Not on file Sexual Orientation Not on file Occupation Industry Job Start Date Job End Date MIS Not on file Not on file Not on file Last Filed Vital Signs Vital Sign Reading Time Taken Comments Blood Pressure 137/66 10/24/2024 1:36 PM GARMENT FINISHER Pulse 74 10/24/2024 1:36 PM GARMENT FINISHER Temperature 36.4 C (97.5 F) 02/22/2021 2:08 PM CDT Respiratory Rate 18 01/18/2024 1:49 PM GARMENT FINISHER Oxygen Saturation 98% 01/18/2024 1:49 PM GARMENT FINISHER Inhaled Oxygen Concentration - - Weight 76.2 kg (168 lb) 10/24/2024 1:36 PM GARMENT FINISHER Height 170.2 cm (5' 7 ) 10/24/2024 1:36 PM GARMENT FINISHER Body Mass Index 26.31 10/24/2024 1:36 PM GARMENT FINISHER Plan of Treatment Health Maintenance Due Date [...] VACCINE ( season) 2024 09/11/2021, 03/11/2021, 02/09/2021 DEPRESSION SCREENING 11/12/2024 10/24/2024, 03/16/2023, 05/12/2022 DIABETES - URINE PROTEIN SCREENING 11/12/2024 02/22/2021, 01/10/2019 INFLUENZA VACCINE (Season Ended) 2025 09/13/1998, 09/11/1997 DIABETES-SERUM CREATININE 11/03/20252023, 02/03/2022, 09/26/2021, Additional history [...] COMPREHENSIVE METABOLIC PANEL Routine 11/03/2024 6:13 AM GARMENT FINISHER Chronic pain of both knees PROTEIN CREATININE RATIO URINE RANDOM PNL Routine 02/22/2021 3:05 PM CDT Undifferentiated connective tissue disease from Last 3 Months or Most Recently Relevant to Health Maintenance Results * (ABNORMAL) COMPREHENSIVE METABOLIC PANEL (11/03/2024 6:13 AM GARMENT FINISHER) Glucose 104(H) 65 - 99 mg/dL [facility] [...] mL/min/1. 73m2 [facility] BUN/Creatinine Ratio SEE NOTE: - (calc) [facility] Comment: Not Reported: BUN [...] 46 U/L [facility] Comment: Test Performed at: [facility] [address] [place] [address] AMIE MOSER MD Blood BLOOD SPECIMEN / Unknown 11/03/2024 6:13 AM GARMENT FINISHER 11/03/2024 6:14 AM GARMENT FINISHER Megha Berkowitz MD LAB - CHEMISTRY ORDERABLES Final Result [facility] [id number] [place] [address] * (ABNORMAL) PROTEIN CREATININE RATIO URINE RANDOM [...] Agency Comment Lab Testing performed at: [facility] [address] [facility] [id number] Megha Berkowitz MD LAB - URINE CHEMISTRY ORDERABLES Final Result [facility] ACCOUNT BILL [address] [place] [address] from Last 3 Months or Most Recently Relevant to Health Maintenance Insurance MEDICARE [facility] MEDICARE Care Teams Elementary Esl Teacher Relationship Specialty Start Date End Date Mason Lewis MD [address] [place] [address] [place] [address] PCP - General Family Medicine 05/31/23
--- NOTE | 2025-03-18 18:12 | P.SLEEP_ITS ---
Sleep Study Date of Study: 03/03/25 Ordering Provider: Yareli Ackerman MD Interpreting Physician: Yareli Ackerman MD Sleep Study Type: Split Polysomnogram Height: 1.69 m Weight: 76.204 kg Body Mass Index: 26.6 Neck Circumference (inches): 15.5 Victor: 8 Reason for Sleep Study Known BOGDAN; evaluation for possible Inspire hypoglossal nerve stimulator * 02/17/2022- split night PSG; AHI 11.4, titrated to 9 cm; has used APAP consistently for several years without benefit. Sleep History Gilbert Dhillon is a 64-year-old man with obstructive sleep apnea, pulmonary hypertension, insomnia, hypertension, hyperlipidemia, diabetes mellitus, Sjogren's, Raynaud's, and Grave's disease. He has chronic fatigue for over 15 years despite compliance with CPAP. This is worsened in the last year. This makes it difficult for him to work during the day even using modafinil and dextroamphetamine. He has used Lunesta, Ambien and doxepin to assist with sleep maintenance insomnia. If he wakes during the night after 1:00 a.m. or 2:00 a.m., he is not able to return to sleep. Any sleep medications make him drowsy the next morning, even a 1/6 of a doxepin. He rarely awakens from sleep feeling short of breath. He rarely awakens at night with heartburn, belching or coughing. He occasionally snores, and occasionally this is loud enough for others to complain about it. He rarely has difficulty sleeping when he has a cold. He rarely wakes up gasping for breath at night. He occasionally has breathing problems at night reported to him by others. He rarely sweats excessively at night. He does not notice his heart pounding or beating irregularly at night. He rarely falls asleep during the day, never involuntarily or while driving. He does not have loss of muscle tone with strong emotion. He frequently has daytime difficulties at work due to excessive sleepiness. He does not feel paralyzed on waking or falling asleep. He occasionally has vivid dreamlike scenes upon awakening or falling asleep. He does not feel afraid to go to sleep. He does not have nightmares. He occasionally remembers his dreams. He occasionally has racing thoughts. He occasionally has anxiety. He does not notice parts of his body jerking, does not kick at night nor does he have crawling or aching feelings in his legs at night. He does not have any leg pain during the night. He denies morning jaw pain. He rarely grinds his teeth at night. He occasionally is bothered by pain during the day. He rarely is awakened by pain during the night. He rarely wakes up feeling stiff in the morning. He rarely wakes up with sore achy muscles. He occasionally wakes up with pain in the neck and spine. He has memory problems and concentration difficulties. Normal bedtime is around 8:00 p.m. falling asleep within 5 minutes, typically waking between 1 and 2 times during the night. If he awakens after 1:00 or 2:00 a.m. he is not able to return to sleep. When he awakens at night sometimes he reads, goes to the bathroom, or occasionally takes a warm bath. His normal wake time is 3:00 a.m.. On weekends, bedtime is also 8:00 p.m., wake time is 4:00 a.m.. He does not take naps in the afternoon or evening as this will make it harder to go to sleep and stay asleep at night. He does not feel refreshed after short nap. He is never refreshed on waking. He is drowsy for 3 hours after waking. 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 Habits: Tobacco: never smoker Caffeine: 1-2 per day Alcohol: none Recreational substance: none PMFSH Past Medical History Medical History Pulmonary hypertension Sjogrens syndrome GERD (gastroesophageal reflux disease) Globus sensation Hypogonadism in male Insomnia Hypersomnolence disorder, persistent Skin lesions Cyst BOGDAN on CPAP Chronic fatigue Erectile dysfunction associated with type 2 diabetes mellitus Essential hypertension Hx of Graves' disease Hyperlipidemia Hypothyroidism (acquired) 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 Osteopenia Primary osteoarthritis of both knees Testicular hypofunction Type 2 diabetes mellitus with hyperglycemia Surgical History Surgical History History of thyroidectomy with radioactive iodine Family History Family History Mother Family history of osteoporosis Hypertension Family history of Alzheimer's disease Family history of diabetes mellitus in first degree relative Cerebrovascular accident Patient's mother is Father Hypertension Family history of congestive heart failure Sibling Patient's sister is in good health Social History Social History Smoking status: Never smoker Second hand tobacco smoke exposure: No Alcohol intake: never Substance use: never Substance use type: does not use Lack of Transportation: No Lack of Food: Never True Current Housing: I Have Housing Concerned About Future Housing: No Difficulty Paying Gas/Electric Bills: No Difficulty Paying for Meds: No Currently Unemployed: No Education: Associate Degree Difficulty w/ Childcare or Family Care: No Living arrangements: with family Spiritual care concerns: No Agree to blood products: Yes Medications Home Medications ?Medication ?Instructions ?Recorded ?Confirmed ?Type aspirin 81 mg capsule 81 mg PO DAILY 06/08/22 02/16/25 History cholecalciferol (vitamin D3) 25 25 mcg PO DAILY 09/12/23 02/16/25 History mcg (1,000 unit) tablet multivitamin (Daily Multi-Vitamin 1 tablet PO DAILY 09/12/23 02/16/25 History tablet) vitamin B complex (B 1 tablet PO DAILY 09/12/23 02/16/25 History Complex-Vitamin B12 tablet) calcium carbonate (Calcium 600) 600 mg PO DAILY 09/27/23 02/16/25 History modafinil 200 mg tablet 200 mg PO QAM #30 tabs 09/27/23 02/16/25 Rx eszopiclone 3 mg tablet 3 mg PO QHS 90 days #90 tabs 09/12/24 02/16/25 Rx tadalafil 20 mg tablet 40 mg (2 x 20 mg) PO DAILY 09/19/24 02/16/25 Rx Pulmonary hypertension 90 days #180 tabs glucagon 3 mg/actuation nasal 3 mg intranasal ONCE PRN 09/24/24 02/10/25 Rx spray (Baqsimi) hypoglycemia #1 ea omeprazole 20 mg capsule,delayed 20 mg PO DAILY 09/24/24 02/16/25 History release tirzepatide 12.5 mg/0.5 mL 12.5 mg (0.5 mL) subcut WEEKLY #6 09/24/24 02/16/25 Rx subcutaneous pen injector mL (Mounjaro) rosuvastatin 20 mg tablet 20 mg PO DAILY #90 tabs 12/08/24 02/16/25 Rx telmisartan 40 mg tablet 40 mg PO DAILY #90 tabs 12/08/24 02/16/25 Rx blood-glucose sensor (Dexcom G7 #9 ea 12/11/24 12/31/24 Rx Sensor device) insulin glargine U-300 conc 300 12 unit (0.04 mL) subcut DAILY 3 12/11/24 02/16/25 Rx unit/mL (1.5 mL) subcutaneous pen months #4.5 mL (Toujeo SoloStar U-300 Insulin) hydrochlorothiazide 12.5 mg capsule 12.5 mg PO DAILY 12/31/24 02/16/25 History gabapentin 300 mg capsule 300 mg PO QHS #90 caps 03/16/25 Rx meloxicam 15 mg tablet 15 mg PO DAILY #90 tabs 03/16/25 Rx Jardiance 25 mg tablet 25 mg PO QAM 90 days #90 tabs 03/17/25 Rx (empagliflozin) insulin aspart U-100 100 unit/mL See Rx Instructions subcut TID 3 03/17/25 Rx (3 mL) subcutaneous pen (Novolog months #15 mL FlexPen U-100 Insulin aspart) levothyroxine 137 mcg capsule 137 mcg PO DAILY 90 days #90 caps 03/17/25 Rx pen needle, diabetic 32 gauge x #400 ea 03/17/25 Rx Sleep Procedure A split night polysomnogram using the C-Vibes multi-channel system recorded the standard physiologic parameters including EEG, EOG, submentalis EMG, anterior tibialis EMG, EKG, body position, nasal and oral airflow using nasal pressure sensor and thermistor. Respiratory parameters of chest and abdominal movements were recorded with Respiratory Inductance Plethysmography belts. Oxygen saturation was recorded by pulse oximetry. Video monitoring was also performed. Sleep stages, periodic limb movements, and EEG arousals were scored in 30 second epochs according to the criteria of the AASM Scoring Manual. The Apnea-Hypopnea Index was calculated using CMS guidelines for definition of hypopnea while scoring respiratory events. He did not take a sleep aid at the start of the study. After the baseline portion the patient met criteria for a titration with an AHI of 19.4 and desaturation to 86%. He used a medium Respironics DreamWear UTN (under the nose) nasal mask with heated humidity, initial pressure was CPAP 5 titrated to CPAP 9 cm. Pressures of CPAP 7 and 9 cm controlled events. He had supine REM on both pressures. His sleep was more fragmented using PAP compared to the baseline portion of the night with PAP. His EEG showed alpha-intrusion. The patient woke at 4:55 am.m. ready to go home. Sleep Architecture During the diagnostic portion of the study, the total recording time was 173.7 minutes. The total sleep time was 155.0 minutes. Sleep latency was 2.2 minutes. REM latency was 36.0 minutes. Sleep Efficiency was 89.3%. The patient had 17 awakenings for an awakening index of 6.6. Wake after sleep onset time was 16.5 minutes. The patient spent 11.5 minutes, 7.4% of total sleep time in Stage N1. The patient spent 95.5 minutes, 61.6% in Stage N2. The patient spent 2.5 minutes, 1.6% in Stage N3. The patient spent 45.5 minutes, 29.4% in Stage REM sleep. At 01:25:01 AM the patient was placed on PAP treatment and was titrated at pressures ranging from CPAP 5 cm to 7 cm, then 9 cm. During the treatment portion of the study, the total recording time was 210.5 minutes. The total sleep time was 156.0 minutes. Sleep latency was 4.5 minutes. REM latency was 62.0 minutes. Sleep Efficiency was 74.1%. Wake after Sleep Onset time was 49.5 minutes. The patient spent 30.0 minutes, 19.2% of total sleep time in Stage N1. The patient spent 83.0 minutes, 53.2% in Stage N2. The patient spent no time in Stage N3. The patient spent 43.0 minutes, 27.6% in Stage REM. Respiratory Analysis During the diagnostic portion of the study, the patient had 49 hypopneas, 1 obstructive apnea, no mixed or central apneas for an overall Apnea Hypopnea Index of 19.4 events per hour. The REM Apnea Hypopnea Index was 50.1. The NREM Apnea Hypopnea Index was 9.3. The patient had a Central Apnea Hypopnea Index of 0. There were no Respiratory Effort Related Arousals. The Respiratory Disturbance Index is 22.8 events per hour. There was no evidence of Jacinto- Harp Respirations. During the treatment portion of the study, the patient had 6 hypopneas, 8 obstructive apneas, no mixed apneas, and 2 central apneas for an overall Apnea Hypopnea Index of 6.2 events per hour. The REM Apnea Hypopnea Index was 4.2. The NREM Apnea Hypopnea Index was 6.9. The patient had a Central Apnea Hypopnea Index of 0.8. There were no Respiratory Effort Related Arousals. The Respiratory Disturbance Index is 10.4 events per hour. There was no evidence of Jacinto-Harp Respirations. Arousals During the diagnostic portion of the study, there were a total of 37 arousals for an arousal index of 14.3. There were 17 respiratory arousals for an index of 6.6. There were no periodic limb movement arousals. There was 1 isolated limb movement arousal for an index of 0.4. There were 19 spontaneous arousals for an index of 7.4. During the treatment portion of the study, there were a total of 63 arousals for an index of 24.2. There were 22 respiratory arousals for an index of 8.5. There were no periodic limb movement arousals. There were 3 isolated limb movement arousals for an index of 1.2. There were 38 spontaneous arousals for an index of 14.6. Periodic Limb Movements During the diagnostic portion of the study, the patient had 1 isolated limb movement with an index of 0.4. The patient had no periodic limb movements. The patient had a total of 1 limb movement with a total limb movement index of 0.4. During the treatment portion of the study, the patient had 9 isolated limb movements with an index of 3.5. The patient had no periodic limb movements. The patient had a total of 9 limb movements with a total limb movement index of 3.5. Oximetry Data During the diagnostic portion of the study, the patient had an average oxygen saturation of 93% in wake with a minimum oxygen saturation of 85% and a maximum oxygen saturation of 98%. The patient had an average oxygen saturation of 94% in sleep with a minimum oxygen saturation of 86% and a maximum oxygen saturation of 98%. The patient had 64 oxygen desaturations resulting in an Oxygen Desaturation Index of 24.8. The patient spent 2 minutes, 1.2% of total sleep time with an oxygen saturation less than 88%. During the treatment portion of the study, the patient had an average oxygen saturation of 96.7% in wake with a minimum oxygen saturation of 88% and a maximum oxygen saturation of 99%. The patient had an average oxygen saturation of 96% in sleep with a minimum oxygen saturation of 89% and a maximum oxygen saturation of 98%. The patient had 26 oxygen desaturations resulting in an Oxygen Desaturation Index of 10.0. The patient spent no total sleep time with an oxygen saturation less than 88%. Snoring Profile Snoring was mild on the baseline, eliminated during the titration. Cardiac Profile During the diagnostic portion of the study, the EKG showed normal sinus rhythm. The average pulse rate was 63.9 bpm. The minimum pulse rate was 57 bpm. The maximum pulse rate was 80 bpm. No arrhythmias noted. During the treatment portion of the study, the EKG showed normal sinus rhythm. The average pulse rate was 64.3 bpm. The minimum pulse rate was 58 bpm. The maximum pulse rate was 88 bpm. No arrhythmias noted. EEG Profile EEG was unremarkable, no evidence of seizures. Assessment and Plan Assessment and Plan (1) Obstructive sleep apnea: Code(s): G47.33 - Obstructive sleep apnea (adult) (pediatric) Status: Acute Assessment and Plan: This split night sleep study on 03/03/2025 shows moderate obstructive sleep apnea, the apnea-hypopnea index was 19.4 with desaturation to 86% and mild snoring, with improvement in AHI on CPAP 7 cm however his sleep was more f ragmented with spontaneous awakenings during the titration. He had a very short sleep latency of 2.2 minutes and a short REM latency 36 minutes suggesting sleep deprivation. Alpha intrusion was present during non-REM and REM sleep. This is consistent with his complaints of chronic fatigue. He has autoimmune conditions including Sjogren, Graves disease, and diabetes mellitus. He had no significant limb movements. All limb movements occurred during awakenings. He is a candidate for Inspire evaluation with a BMI below 32 and years of compliance with CPAP and no clinical benefit. Data The data obtained during this sleep study is adequate for interpretation. Certification This sleep study has been reviewed by a board certified sleep medicine physician.
[2025-03-19 17:16] VITALS: BMI 26.6
== END 2025-03-04 05:24 | disposition home or self-care (01) ==
LOC: ANHCSM 08:46
PROVIDERS: PCP Nurse Practitioner Family; Visit Provider Internal Medicine Critical Care Medicine
DX: G47.33 Obstructive sleep apnea (adult) (pediatric) (principal)
CPT/HCPCS: 95811

== ENCOUNTER 2025-08-03 09:12 | Outpatient (CLI) | payer BC, OTHER, SELFPAY ==
--- NOTE | ~2025-08-03 | DEXA_ITS ---
Bone Density Report Name: MARLENE SPRAGUE Age: 65 Sex: Male Ethnicity: White Date of : 1960 Indication: prior fracture; Referring Provider: Adrienne Luna Study: Bone densitometry was performed. Exam Date: August 03, 2025 Accession number: [id number] Bone Density: Region BMD T-score Z-score Classification AP Spine(L1-L4) 0.970 -1.1 -0.3 Osteopenia Femoral Neck (Left) 0.551 -2.8 -1.7 Osteoporosis Total Hip (Left) 0.723 -2.1 -1.5 Osteopenia Femoral Neck (Right) 0.581 -2.6 -1.5 Osteoporosis Total Hip (Right) 0.736 -2.0 -1.4 Osteopenia Total Hip Mean 0.730 -2.1 -1.5 Osteopenia World Health Organization criteria for BMD impression classify patients as: Normal (T-score at or above -1.0), Osteopenia (T-score between -1.0 and -2.5), or Osteoporosis (T-score at or below -2.5). 10-year Fracture Risk: FRAX not reported because: Some T-score for Spine Total or Hip Total or Femoral Neck at or below -2.5 Previous Exams: -- Region Exam Age BMD T-score BMD Change BMD Change Date g/cm2 vs Baseline vs Previous -- AP Spine (L1-L4) 08/03/2025 65 0.970 -1.1 -8.8%* -8.8%* 09/25/2018 58 1.064 -0.2 Total Hip(Left) 08/03/2025 65 0.723 -2.1 -26.6%* -26.6%* 09/25/2018 58 0.985 -0.3 Total Hip(Right) 08/03/2025 65 0.736 -2.0 -26.3%* -26.3%* 09/25/2018 58 0.999 -0.2 -- *Denotes significance at 95% confidence level, LSC for AP Spine = 0.022 g/cm2, LSC for Total Hip = 0.027 g/cm2 Clinical Information Provided by Patient: Has had a low trauma fracture Has used the following medications: Vitamin D, Calcium Patient maximum height was 67 No regular weight bearing exercise Drinks caffeinated beverages Impression: The patient has established osteoporosis, based on the Left Femoral Neck T-score and the existence of a prior fracture. The patient has risk factors, including: previous fracture. The BMD for the AP Spine (L1-L4) decreased, changing by -8.8% since the last DXA exam. The BMD for the Total Hip(Left) decreased, changing by -26.6% since the last DXA exam. The BMD for the Total Hip(Right) decreased, changing by -26.3% since the last DXA exam. Discussion: HIGH RISK OF FRACTURE. BONE DENSITY IS UNDESIRABLY LOW AT ONE OR MORE SKELETAL SITES, CONSISTENT WITH OSTEOPOROSIS. This patient's lowest T-score, in a patient who has previously fractured, meets the World Health Organization's (WHO) criteria for severe osteoporosis. In untreated patients, the risk of osteoporotic fracture increases approximately two-fold for each 1.0 SD decrease in T-score. Low bone density is not the only risk factor for fracture; also consider factors such as patient's age, frailty or poor health, risk of falling, risk of injury, previous osteoporotic fracture, family history of osteoporosis, cigarette smoking, low body weight, etc. Not everyone with low bone mineral density has osteoporosis; osteomalacia and other metabolic bone disorders should also be considered. Patients who have osteoporosis should be evaluated for specific diseases and conditions (secondary causes) that may cause or contribute to bone loss. The National Osteoporosis Foundation (NOF) recommends pharmacologic intervention for men with BMD at this level (a T-score of -2.5 or below). The patient should follow a healthful lifestyle (good nutrition with adequate calcium and vitamin D, and appropriate weight-bearing exercise). Follow-Up: Consider repeating this study in 2 years to reassess this patient's status, or sooner if there is some new clinical indication. Reported by: JARED on 08/03/2025 9:44:00 AM. Reviewed, dictated and finalized at location A.
== END 2025-08-03 09:13 | disposition home or self-care (01) ==
LOC: MICIMG 09:13
PROVIDERS: PCP Nurse Practitioner Family; Visit Provider Internal Medicine Endocrinology, Diabetes & Metabolism
DX: M85.89 Other specified disorders of bone density and structure, multiple sites (principal)
CPT/HCPCS: 77080

== ENCOUNTER 2025-09-28 09:48 | Observation (INO) | payer BC, OTHER, SELFPAY ==
[2025-09-28] VITALS (35 sets, daily range): BP systolic 95–160; BP diastolic 61–86; PULSE 67–213; RESP 12–20; TEMP 36.7–36.8; O2SAT 96–100; BMI 25.2
--- NOTE | ~2025-09-28 | CT_ITS ---
EXAMINATION: CTA chest PE protocol DATE: 09/28/2025 22:56 INDICATION: Tachycardia. TECHNIQUE: Computed tomography angiography (CTA) of the chest was performed with 100 mL Omnipaque-350 intravenous contrast timed to evaluate the pulmonary arteries. Coronal maximum intensity projection 3D-reconstructions were created by the technologist. Automated exposure control and iterative reconstruction technique were employed. The dose-length product was 259.35 mGy-cm. COMPARISON: None. FINDINGS: The lungs demonstrate mild atelectasis. No pleural effusion. The heart size is normal. There are coronary artery calcifications. No pericardial effusion. There is no pulmonary embolus. There are cysts in the kidneys measuring up to 1.5 cm on the left. There is mild thoracic spondylosis. IMPRESSION: 1. No pulmonary embolus. Reviewed, dictated and finalized at location E. ONAL VEHICLE ADVISOR IMPRESSION: 1. No pulmonary embolus.
--- NOTE | ~2025-09-28 | XR_ITS ---
EXAMINATION: XR chest 1V portable DATE: 09/28/2025 11:03 INDICATION: Chest pain TECHNIQUE: A single frontal view of the chest was obtained. COMPARISON: None. FINDINGS: The lungs are clear. No pneumothorax or subphrenic free air seen. Heart size normal. Bones and visualized portions of the upper abdomen appear within normal limits. IMPRESSION: 1. Portable chest x-ray demonstrating no focal acute process. Reviewed, dictated and finalized at location A. TRANSCRIBER
--- NOTE | 2025-09-28 09:49 | ECG_ITS ---
Test Date: 2025-09-28 09:57:12 Measurements Intervals [place] Rate: 213 P: 0 [place]: 0 QRS: 8 QRSD: 93 T: 92 QT: 200 QTc: 377 Interpretive Statements SUPRAVENTRICULAR TACHYCARDIA NONSPECIFIC ST & T-WAVE ABNORMALITY Electronically Signed On 09-28-2025 11:25:44 PELT SHEARER by Yadiel Reaves D.O
[2025-09-28 10:15] LABS: Hematocrit 47.1 % (42.0-52.0); Hemoglobin 16.0 g/dL (14.0-18.0); Immature Granulocyte Percent A 0.3 % (0-0.5); Lymphocytes Absolute Auto 1.14 K/mm3 (0.9-3.2); Mean Corpuscular HGB Conc 34.0 g/dl (32-36); Mean Corpuscular Hemoglobin 31.4 pg (26-34); Mean Corpuscular Volume 92.4 fl (80-100); Nucleated Red Blood Cells Absolute Auto 0.000 K/mm3 (0.0-0.012); Nucleated Red Blood Cells Perc 0.0 % (0.0-0.2); Platelet Count Result 211 k/mm3 (150-375); Red Blood Count 5.10 M/mm3 (4.6-6.20); White Blood Count 6.0 K/mm3 (4.5-10.0)
--- NOTE | 2025-09-28 10:22 | ECG_ITS ---
Test Date: 2025-09-28 10:04:47 Measurements Intervals [place] Rate: 108 P: 60 DE: 153 QRS: 20 QRSD: 81 T: 58 QT: 308 QTc: 414 Interpretive Statements SINUS TACHYCARDIA Electronically Signed On 09-28-2025 11:25:50 PREDATORY ANIMAL HUNTER by Yadiel Reaves D.O
[2025-09-28 10:26] LABS: INR 0.9; Prothrombin Time 12.7 Seconds (11.1-14.7)
[2025-09-28 10:27] LABS: Partial Thromboplastin Time 26.8 Seconds (22.3-36.8)
[2025-09-28 10:33] LABS: Alanine Aminotransferase 32 U/L (6-50); Albumin Level 5.0 g/dL (3.5-5.1); Alkaline Phosphatase 77 U/L (38-126); Anion Gap 11 mmol/L (4-12); Aspartate Amino Transferase 33 U/L (17-59); Bilirubin,Total 0.7 mg/dL (0.2-1.3); Blood Urea Nitrogen 19 mg/dL (9-20); Calcium 9.3 mg/dL (8.4-10.2); Carbon Dioxide 23 mmol/L (22-30); Chloride 103 mmol/L (98-107); Estimated CRCL calculation 68 ml/min; Estimated Glomerular Filt Rate > 60; Glucose 142 mg/dL (65-110); Lipase 297 U/L (23-300); Potassium 4.0 mmol/L (3.4-5.0); Sodium 137 mmol/L (137-145); Total Protein 8.7 g/dL (6.3-8.2)
[2025-09-28 10:39] LABS: Troponin I < 0.012 ng/mL (0.000-0.034)
[2025-09-28 10:54] LABS: Magnesium 2.3 mg/dL (1.6-2.3)
[2025-09-28 11:26] LABS: Thyroid Stimulating Hormone Reflex 0.794 uIU/mL (0.465-4.68)
--- NOTE | 2025-09-28 11:56 | ED.GENADULT ---
HPI - General Adult General Chief complaint: Chest Pain Stated complaint: cp, jaw pain, elevated HR Time Seen by Provider: 09/28/25 10:22 History of Present Illness HPI narrative: 65-year-old male present to the emergency department for evaluation for rapid heart rate. Patient arrived to the emergency department with a heart rate of approximately 200. Patient states he was at work when he began to have some onset of dizziness and and felt a rapid heart rate. Patient presented to the emergency department by private transport and was found to have an elevated heart rate. Patient was brought back to room 10 and by the time the patient was placed on the monitor in room 10 his heart rate had had converted back to sinus tachycardia with a rate approximately 110. patient states that his symptoms had improved and he was feeling better as the heart rate improved. Patient states he did have a stress test recently along with Angiocath and this was negative. Patient denies any prior history of SVT, AFib or significant tachycardia. Patient did have chest pain that radiated to his jaw and right arm when he was having a rapid heart rate but the symptoms did resolve as soon as the heart rate returned to normal. Patient's most recent stress test was approximately 6 months ago. Patient has no cardiac stents. Patient does follow-up with Dr. Figueroa. Related Data Home Medications ?Medication ?Instructions ?Recorded ?Confirmed ?Last Taken ?Type aspirin 81 mg capsule 81 mg PO DAILY 06/08/22 06/08/25 02/14/25 History cholecalciferol (vitamin D3) 25 25 mcg PO DAILY 09/12/23 06/08/25 02/14/25 History mcg (1,000 unit) tablet multivitamin (Daily Multi-Vitamin 1 tablet PO DAILY 09/12/23 06/08/25 02/14/25 History tablet) vitamin B complex (B 1 tablet PO DAILY 09/12/23 06/08/25 02/14/25 History Complex-Vitamin B12 tablet) calcium carbonate (Calcium 600) 600 mg PO DAILY 09/27/23 06/08/25 02/14/25 History omeprazole 20 mg capsule,delayed 20 mg PO DAILY 09/24/24 06/08/25 02/14/25 History release hydrochlorothiazide 12.5 mg capsule 12.5 mg PO DAILY 12/31/24 06/08/25 02/14/25 History Allergies Allergy/AdvReac Type Severity Reaction Status Date / Time No Known Allergies Allergy Verified 09/28/25 09:49 Review of Systems Review of Systems: All systems reviewed & are unremarkable except as noted in HPI and below PMFSH Past Medical History Medical History (Updated 09/28/25 @ 18:45 by Jaylen Licea MD) Other specified disorders of bone density and structure, other site Pulmonary hypertension Sjogrens syndrome GERD (gastroesophageal reflux disease) Globus sensation Hypogonadism in male Insomnia Hypersomnolence disorder, persistent Skin lesions Cyst BOGDAN on CPAP Chronic fatigue Erectile dysfunction associated with type 2 diabetes mellitus Essential hypertension Hx of Graves' disease Hyperlipidemia Hypothyroidism (acquired) 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 Osteopenia Primary osteoarthritis of both knees Testicular hypofunction Type 2 diabetes mellitus with hyperglycemia Surgical History Surgical History History of thyroidectomy with radioactive iodine Family History Family History Mother Family history of osteoporosis Hypertension Family history of Alzheimer's disease Family history of diabetes mellitus in first degree relative Cerebrovascular accident Patient's mother is Father Hypertension Family history of congestive heart failure Sibling Patient's sister is in good health Social History Social History Smoking status: Never smoker Second hand tobacco smoke exposure: No Alcohol intake: never Substance use: never Substance use type: does not use Lack of Transportation: No Lack of Food: Never True Current Housing: I Have Housing Concerned About Future Housing: No Difficulty Paying Gas/Electric Bills: No Difficulty Paying for Meds: No Currently Unemployed: No Education: Associate Degree Difficulty w/ Childcare or Family Care: No Living arrangements: with family Spiritual care concerns: No Agree to blood products: Yes Exam Narrative: APPEARANCE: Well appearing, no pain, no distress, well-nourished. HEAD: normocephalic, atraumatic. EYES: PERRLA/EOMI, conjunctivae clear. NOSE: Normal no drainage EARS:TMS clear with good light reflex. THROAT: Pharynx clear, no exudate. NECK: Supple. No adenopathy, no masses. RESPIRATORY: Airway patent, respirations nonlabored. Clear to auscultation bilaterally, no rales, rhonchi, wheezing. CARDIOVASCULAR: Regular rate and rhythm without murmurs rubs or gallops. ABDOMINAL: Soft, nontender, nondistended, normal bowel sounds MUSCULOSKELETAL: Moves all extremities. Strength/ROM intact, No edema, No calf tenderness. NEURO: Alert. Cranial nerves II through XII intact. Good gait. Good coordination SKIN: Warm, dry. Normal Color Course Vital Signs Vital signs: Vital Signs Temperature 98.2 F 09/28/25 10:00 Pulse Rate 213 H 09/28/25 10:00 Respiratory Rate 20 09/28/25 10:00 Blood Pressure 95/61 L 09/28/25 10:00 Pulse Oximetry 98 09/28/25 10:00 Temperature 98.2 F 09/28/25 10:00 Pulse Rate 96 09/28/25 13:00 Respiratory Rate 13 09/28/25 13:00 Blood Pressure 117/69 09/28/25 13:00 Pulse Oximetry 99 09/28/25 13:00 Oxygen Delivery Room Air 09/28/25 10:10 Medical Decision Making [facility] Narrative Medical decision making narrative: 65-year-old male presents emergency department for evaluation for SVT. Patient's heart rate was in the 200s by the time we got the patient on to monitor his heart rate had improved to normal sinus tachycardia. Patient was having chest pain with the elevated heart rate but all pain resolved when his heart rate returned to normal sinus rhythm. Patient is afebrile with no leukocytosis hemoglobin of 16.0. Patient has normal potassium and normal magnesium and normal TSH. Patient his initial troponin was negative. Patient's repeat troponin was elevated at 0.065 Cardiology was consulted and patient will stay for a 6 hour troponin. Patient's 6 hour troponin was further increased. I did re-consult cardiology and patient will be admitted for further evaluation. Did leave the elevated troponin is most likely due to demand ischemia with the patient's heart rate was greater than 200. Patient continues to be pain in symptom free. Patient was willing to stay for further evaluation. Case was discussed with hospitalist patient was stable at time of admission. Differential Diagnosis Differential Diagnosis: SVT, VFib, V-tach, pulmonary embolism, ACS Vital Signs Vital Signs: Vital Signs Temperature 98.2 F 09/28/25 10:00 Pulse Rate 213 H 09/28/25 10:00 Respiratory Rate 20 09/28/25 10:00 Blood Pressure 95/61 L 09/28/25 10:00 Pulse Oximetry 98 11/17/25 10:00 Temperature 98.2 F 09/28/25 10:00 Pulse Rate 96 09/28/25 13:00 Respiratory Rate 13 09/28/25 13:00 Blood Pressure 117/69 09/28/25 13:00 Pulse Oximetry 99 09/28/25 13:00 Oxygen Delivery Room Air 09/28/25 10:10 Lab Data Lab results reviewed: Yes I reviewed the patient's lab results. 09/28/25 10:09 09/28/25 10:09 Labs: Lab Results 09/28/25 09/28/25 09/28/25 Range/Units 10:08 10:09 13:00 WBC 6.0 (4.5-10.0) K/mm3 RBC 5.10 (4.6-6.20) M/mm3 Hgb 16.0 (14.0-18.0) g/dL Hct 47.1 (42.0-52.0) % MCV 92.4 (80-100) fl MCH 31.4 (26-34) pg MCHC 34.0 (32-36) g/dl RDW 12.1 (11.5-14.5) % Plt Count 211 (150-375) k/mm3 MPV 8.5 (7.4-10.4) fl Immature Gran % (Auto) 0.3 (0-0.5) % Neut % (Auto) 72.7 (45.5-73.1) % Lymph % (Auto) 18.9 (18.3-44.2) % [place] % (Auto) 5.8 (2.6-8.5) % Eos % (Auto) 2.0 (0-4.4) % Baso % (Auto) 0.3 (0.2-1.2) % Lymph # (Auto) 1.14 (0.9-3.2) K/mm3 [place] # (Auto) 0.4 (0.1-0.6) K/mm3 Eos # (Auto) 0.1 (0-0.3) K/mm3 Baso # (Auto) 0.0 (0.0-0.1) K/mm3 Abs Immat Gran (auto) 0.02 (0.00-0.031) K/mm3 Absolute Neuts (auto) 4.4 (1.3-6.7) K/mm3 Absolute Nucleated RBC 0.000 (0.0-0.012) K/mm3 Nucleated RBC % 0.0 (0.0-0.2) % PT 12.7 (11.1-14.7) Seconds INR 0.9 APTT 26.8 (22.3-36.8) Seconds Sodium 137 (137-145) mmol/L Potassium 4.0 (3.4-5.0) mmol/L Chloride 103 (98-107) mmol/L Carbon Dioxide 23 (22-30) mmol/L Anion Gap 11 (4-12) mmol/L BUN 19 (9-20) mg/dL Creatinine 0.84 (0.7-1.3) mg/dL Estim Creat Clear Calc 68 ml/min Estimated GFR > 60 (59 - ) Glucose 142 H (65-110) mg/dL Calcium 9.3 (8.4-10.2) mg/dL Magnesium 2.3 (1.6-2.3) mg/dL Total Bilirubin 0.7 (0.2-1.3) mg/dL AST 33 (17-59) U/L ALT 32 (6-50) U/L Alkaline Phosphatase 77 (38-126) U/L Troponin I < 0.012 0.065 H* D (0.000-0.034) ng/mL Total Protein 8.7 H (6.3-8.2) g/dL Albumin 5.0 (3.5-5.1) g/dL Lipase 297 (23-300) U/L TSH (Reflex) 0.794 (0.465-4.68) uIU/mL 09/28/25 Range/Units 15:50 WBC (4.5-10.0) K/mm3 RBC (4.6-6.20) M/mm3 Hgb (14.0-18.0) g/dL Hct (42.0-52.0) % MCV (80-100) fl MCH (26-34) pg MCHC (32-36) g/dl RDW (11.5-14.5) % Plt Count (150-375) k/mm3 MPV (7.4-10.4) fl Immature Gran % (Auto) (0-0.5) % Neut % (Auto) (45.5-73.1) % Lymph % (Auto) (18.3-44.2) % [place] % (Auto) (2.6-8.5) % Eos % (Auto) (0-4.4) % Baso % (Auto) (0.2-1.2) % Lymph # (Auto) (0.9-3.2) K/mm3 [place] # (Auto) (0.1-0.6) K/mm3 Eos # (Auto) (0-0.3) K/mm3 Baso # (Auto) (0.0-0.1) K/mm3 Abs Immat Gran (auto) (0.00-0.031) K/mm3 Absolute Neuts (auto) (1.3-6.7) K/mm3 Absolute Nucleated RBC (0.0-0.012) K/mm3 Nucleated RBC % (0.0-0.2) % PT (11.1-14.7) Seconds INR APTT (22.3-36.8) Seconds Sodium (137-145) mmol/L Potassium (3.4-5.0) mmol/L Chloride (98-107) mmol/L Carbon Dioxide (22-30) mmol/L Anion Gap (4-12) mmol/L BUN (9-20) mg/dL Creatinine (0.7-1.3) mg/dL Estim Creat Clear Calc ml/min Estimated GFR (59 - ) Glucose (65-110) mg/dL Calcium (8.4-10.2) mg/dL Magnesium (1.6-2.3) mg/dL Total Bilirubin (0.2-1.3) mg/dL AST (17-59) U/L ALT (6-50) U/L Alkaline Phosphatase (38-126) U/L Troponin I 0.125 H* D (0.000-0.034) ng/mL Total Protein (6.3-8.2) g/dL Albumin (3.5-5.1) g/dL Lipase (23-300) U/L TSH (Reflex) (0.465-4.68) uIU/mL Imaging Data Attestation: I personally reviewed and interpreted this imaging study as follows: My impression: Chest x-ray: No acute cardiopulmonary abnormality Radiologist's impression: Impressions Chest X-Ray 09/28/25 11:03 IMPRESSION: 1. Portable chest x-ray demonstrating no focal acute process. Discharge Plan Discharge Clinical Impression: Elevated troponin, SVT (supraventricular tachycardia) Patient Disposition: Still a Patient Condition: Serious Quality HEART score for chest pain patients History: slightly suspicious ECG: normal Age: > or = to 65 years Risk factors: 1 or 2 risk factors Troponin: > 1 and < 3x normal limit Heart score: 4
--- NOTE | 2025-09-28 13:13 | PC.NURSE ---
Patient given sandwich and juice per verbal order from Dr Licea
[2025-09-28 13:31] LABS: Troponin I 0.065 ng/mL (0.000-0.034)
[2025-09-28 16:21] LABS: Troponin I 0.125 ng/mL (0.000-0.034)
--- NOTE | 2025-09-28 18:51 | WPCEDHO ---
ED Hand Off Checklist All vitals saved:yes IV Site documented:yes All med administrations documented:yes Triage Note Triage Note pt c/o midsternal chest pain and 09/28/25 10:00 palpitations for past hour. Hx of cardiac cath this year Allergies No Known Allergies Allergy (Verified 09/28/25 09:49) Family History (Last Reviewed 03/26/25 @ 13:49 by Trinh Segundo [employer]) Mother Family history of osteoporosis Hypertension Family history of Alzheimer's disease Family history of diabetes mellitus in first degree relative Cerebrovascular accident Patient's mother is Father Hypertension Family history of congestive heart failure Sibling Patient's sister is in good health Administered/Completed Medications Discontinued Medications Aspirin (Aspirin 81 Mg Chewable Tablet) 324 mg PO ONCE STA Stop: 09/28/25 09:50 Last Admin: 09/28/25 13:49 Dose: Not Given Documented By: [facility] Non-Admin Reason: No Dose Required Notes 09/28/25 13:13 Nurse Note by Cielo Blackwell Patient given sandwich and juice per verbal order from Dr Licea Initialized on 09/28/25 13:13 - END OF NOTE Interventions/Assessments IV / Saline Lock, Insert Start: 09/28/25 09:49 Freq: STAT Status: Active Protocol: Document 09/28/25 10:10 MLI (Rec: 09/28/25 10:11 MLI [id number]) IV Assessment Peripheral Access Left Antecubital IV Catheter Access Initiated IV Insertion Date 09/28/25 IV Insertion Time 10:11 Catheter Gauge 18 IV Insertion 1 Attempts Ultrasound Used for No Placement IV Site Assessment WNL IV Care and WNL Maintenance PA: Cardiovascular Assessment Start: 09/28/25 09:48 Freq: Status: Active Protocol: Document 09/28/25 10:10 MLI (Rec: 09/28/25 10:11 MLI [id number]) Cardiovascular Assessment Cardiovascular Chest Pain,Palpitations Symptoms Skin Description Normal Color Jugular Vein None Distention Additional Pt had CP and palpitations on arrival, now subsided. Cardiovascular Assessment Comments Rhythm/Strength Monitor EKG Rythm Sinus Tachycardia PA: Respiratory Assessment Start: 09/28/25 09:48 Freq: Status: Active Protocol: Document 09/28/25 10:10 MLI (Rec: 09/28/25 10:11 MLI [id number]) Respiratory Assessment Symptoms None Effort Normal Pattern Regular Depth Normal Chest Expansion Symmetrical Adult Capillary Normal/Less than 2 Seconds Refill Oxygen Delivery Oxygen Delivery Room Air Last Vital Signs Temperature 98.2 F 09/28/25 10:00 Pulse Rate 96 09/28/25 13:00 Respiratory Rate 13 09/28/25 13:00 Pulse Oximetry 99 09/28/25 13:00 Blood Pressure 117/69 09/28/25 13:00 Blood Pressure Mean 85 09/28/25 13:00 Blood Pressure Position Sitting 09/28/25 10:00 Oxygen Delivery Room Air 09/28/25 10:10 Weight 72.8 kg 09/28/25 10:00 Last Result - Abnormals Only Glucose 142 mg/dL (65-110) H 09/28/25 10:09 Troponin I 0.125 ng/mL (0.000-0.034) H* D 09/28/25 15:50 Total Protein 8.7 g/dL (6.3-8.2) H 09/28/25 10:09 Most Recent Suicide Severity Rating Suicide Severity Rating NO RISK INDICATED 09/28/25 10:00
[2025-09-28] MEDS: ASPIRIN 81 MG CHEWABLE TABLET 324 MG PO (20:02)
--- NOTE | 2025-09-28 20:04 | ADMGEN ---
This patient, Gilbert Dhillon, was admitted to IMU Room 202-. Patient/family oriented to hospital policies and general routines including ID bracelet, bed and alarms, visiting hours, pain management, procedures, bathroom and other care routines, personal items, smoking policy, room service/diet, and visiting hours. Information on how to activate the Rapid Response Team has been discussed. Patient/Family are encouraged to report perceived risks to care and to ask questions if they do not understand what they are told or what they should do.
--- NOTE | 2025-09-28 20:29 | PM.IMHP ---
H&P: HPI History of Present Illness Date/Time: 09/28/25 20:29 Chief Complaint: Chest pain Narrative: This is a 65-year-old male patient who was at work today and started to feel dizzy. He also noticed that his heart rate was beating over 200. He does have a watch that keeps track of his heart rate he stated that it was in the 220s. Patient arrived to the emergency room for private transportation and was found to have an elevated heart rate. He was immediately brought back into a emergency room 10. He stated that he did not take any [id number] medication or any new medication. He denied taking any new medication. He denied having any irregular heart rate in the past. However after his heart monitor was placed the patient was noted to be sinus tachycardia with a rate of 110. Patient stated during the fast heart rate he had jaw pain which resolved once his heart rate started to go down. The patient stated that he has had echoes and 2 cardiac caths and denies any coronary artery disease. His blood glucose was noted to be 142 per blood work. His initial cardiac enzyme was negative with a 3 hour troponin of 0.065 and a 6 hour troponin of 0.125. First EKG was read as supraventricular tachycardia heart rate 213. Repeat EKG was read as sinus tachycardia. Portable chest x-ray demonstrating no focal acute process. The patient was given aspirin in the emergency room. Cardiology has been consulted. It was felt that he had demand ischemia with the patient's heart rate greater than 200. The patient is being admitted to observation status on the date of service of 09/28/2025. Review of Systems Constitutional: Constitutional: Reports as per HPI and Reports no additional constitutional complaints Eyes: Eyes: Reports as per HPI and Reports no additional eye complaints ENT: Reports system reviewed and no additional complaints, except as documented and Reports Normal hearing present Cardiovascular: Cardiovascular: Reports no additional cardiovascular complaints Respiratory: Respiratory: Reports as per HPI and Reports no additional respiratory complaints Gastrointestinal: Gastrointestinal: Reports as per HPI and Reports no additional gastrointestinal complaints Musculoskeletal: Musculoskeletal: Reports no additional musculoskeletal complaints Integumentary/Breasts: Skin/Breast: Reports system reviewed and no additional complaints, except as docu Neurologic: Reports system reviewed and no additional complaints, except as documented and Reports Normal hearing present Psychiatric: Psychiatric: Reports no additional psychiatric complaints and Reports as per HPI Hematologic/Lymphatic: Hematologic/Lymphatic: Reports no additional hematologic/lymphatic complaints Allergic/Immunologic: Allergic/Immunologic: Reports no additional allergic/immunologic complaints [facility] Past Medical History Medical History (Updated 09/28/25 @ 22:22 by Snehal Jeffers APRN) Other specified disorders of bone density and structure, other site Pulmonary hypertension Patient denies pulmonary hypertension Sjogrens syndrome GERD (gastroesophageal reflux disease) Globus sensation Hypogonadism in male Insomnia Hypersomnolence disorder, persistent Skin lesions Cyst BOGDAN on CPAP Chronic fatigue Erectile dysfunction associated with type 2 diabetes mellitus Essential hypertension Hx of Graves' disease Hyperlipidemia Hypothyroidism (acquired) 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 Osteopenia Primary osteoarthritis of both knees Testicular hypofunction Type 2 diabetes mellitus with hyperglycemia Surgical History Surgical History (Updated 09/28/25 @ 22:23 by Snehal Jeffers APRN) H/O vasectomy History of thyroidectomy with radioactive iodine Family History Family History (Updated 09/28/25 @ 22:29 by Snehal Jeffers APRN) Mother Family history of osteoporosis Hypertension Family history of Alzheimer's disease Family history of diabetes mellitus in first degree relative Cerebrovascular accident Patient's mother is Father Hypertension Family history of congestive heart failure Sibling Patient's sister is in good health Graves disease Social History Social History (Updated 09/28/25 @ 22:24 by Snehal Jeffers APRN) Social History: The patient is and lives with his . 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 Code status: Full code Smoking status: Never smoker Second hand tobacco smoke exposure: No Alcohol intake: never Substance use: never Substance use type: does not use Lack of Transportation: No Lack of Food: Never True Current Housing: I Have Housing Concerned About Future Housing: No Difficulty Paying Gas/Electric Bills: No Difficulty Paying for Meds: No Currently Unemployed: No Education: Bachelor's Degree Difficulty w/ Childcare or Family Care: No Living arrangements: with family Spiritual care concerns: No Agree to blood products: Yes Meds Home Medications and Allergies Home Medications ?Medication ?Instructions ?Recorded ?Confirmed ?Type aspirin 81 mg capsule 81 mg PO DAILY 06/08/22 09/28/25 History cholecalciferol (vitamin D3) 25 25 mcg PO DAILY 09/12/23 09/28/25 History mcg (1,000 unit) tablet multivitamin (Daily Multi-Vitamin 1 tablet PO DAILY 09/12/23 09/28/25 History tablet) vitamin B complex (B 1 tablet PO DAILY 09/12/23 09/28/25 History Complex-Vitamin B12 tablet) calcium carbonate (Calcium 600) 600 mg PO DAILY 09/27/23 09/28/25 History eszopiclone 3 mg tablet 3 mg PO QHS 90 days #90 tabs 09/12/24 09/28/25 Rx glucagon 3 mg/actuation nasal 3 mg intranasal ONCE PRN 09/24/24 09/28/25 Rx spray (Baqsimi) hypoglycemia #1 ea gabapentin 300 mg capsule 300 mg PO QHS #90 caps 03/16/25 09/28/25 Rx meloxicam 15 mg tablet 15 mg PO DAILY #90 tabs 03/16/25 09/28/25 Rx Jardiance 25 mg tablet 25 mg PO QAM 90 days #90 tabs 03/17/25 09/28/25 Rx (empagliflozin) levothyroxine 137 mcg capsule 137 mcg PO DAILY 90 days #90 caps 03/17/25 09/28/25 Rx pen needle, diabetic 32 gauge x #400 ea 03/17/25 09/28/25 Rx 5/32 tirzepatide 15 mg/0.5 mL 15 mg (0.5 mL) subcut WEEKLY 3 03/26/25 09/28/25 Rx subcutaneous pen injector months #6.5 mL tadalafil 20 mg tablet 40 mg (2 x 20 mg) PO DAILY 05/13/25 09/28/25 Rx Pulmonary hypertension 90 days #180 tabs insulin glargine U-300 conc 300 12 unit (0.04 mL) subcut DAILY 3 05/27/25 09/28/25 Rx unit/mL (1.5 mL) subcutaneous pen months #4.5 mL (Toujeo SoloStar U-300 Insulin) blood-glucose sensor (psicofxp G7 #9 ea 07/15/25 09/28/25 Rx Sensor device) rosuvastatin 20 mg tablet 20 mg PO DAILY #90 tabs 07/30/25 09/28/25 Rx telmisartan 40 mg tablet 40 mg PO DAILY #90 tabs 07/30/25 09/28/25 Rx insulin aspart U-100 100 unit/mL See Rx Instructions subcut TID PRN 09/28/25 09/28/25 History (3 mL) subcutaneous pen (Novolog hyperglycemia FlexPen U-100 Insulin aspart) modafinil 200 mg tablet 200 mg PO QAM PRN extreme 09/28/25 09/28/25 History sleepiness Allergies Allergy/AdvReac Type Severity Reaction Status Date / Time No Known Allergies Allergy Verified 09/28/25 20:17 Vital Signs Vital Signs - 24 hr 09/28/25 10:00 09/28/25 10:04 09/28/25 10:10 Temperature 98.2 F Pulse Rate 213 H 108 H Respiratory Rate 20 16 Blood Pressure 95/61 L 160/86 H Pulse Oximetry 98 100 Oxygen Delivery Room Air 09/28/25 10:16 09/28/25 10:31 09/28/25 10:46 Temperature Pulse Rate 112 H 109 H 109 H Respiratory Rate 17 16 20 Blood Pressure 112/74 123/76 140/65 Pulse Oximetry 100 99 100 Oxygen Delivery 09/28/25 11:26 09/28/25 11:31 09/28/25 12:46 Temperature Pulse Rate 104 H 101 H 97 Respiratory Rate 13 18 12 Blood Pressure 120/73 123/76 122/71 Pulse Oximetry 97 96 100 Oxygen Delivery 09/28/25 13:00 09/28/25 13:02 09/28/25 13:18 Temperature Pulse Rate 96 94 97 Respiratory Rate 13 16 17 Blood Pressure 117/69 Pulse Oximetry 99 99 100 Oxygen Delivery 09/28/25 13:31 09/28/25 14:01 09/28/25 14:16 Temperature Pulse Rate 92 86 91 Respiratory Rate 17 15 13 Blood Pressure 129/81 128/75 136/73 Pulse Oximetry 100 100 100 Oxygen Delivery 09/28/25 14:18 09/28/25 14:31 09/28/25 14:32 Temperature Pulse Rate 91 87 85 Respiratory Rate 18 20 17 Blood Pressure 122/71 Pulse Oximetry 100 98 98 Oxygen Delivery 09/28/25 14:45 09/28/25 14:46 09/28/25 15:00 Temperature Pulse Rate 93 94 87 Respiratory Rate 12 15 15 Blood Pressure 138/68 Pulse Oximetry 98 97 97 Oxygen Delivery 09/28/25 15:01 09/28/25 15:16 09/28/25 15:36 Temperature Pulse Rate 85 88 83 Respiratory Rate 15 15 14 Blood Pressure 132/66 Pulse Oximetry 97 97 96 Oxygen Delivery 09/28/25 15:45 09/28/25 15:46 09/28/25 16:00 Temperature Pulse Rate 85 84 82 Respiratory Rate 12 16 13 Blood Pressure 128/68 127/70 Pulse Oximetry 97 97 97 Oxygen Delivery 09/28/25 16:07 09/28/25 16:15 09/28/25 16:16 Temperature Pulse Rate 95 86 81 Respiratory Rate 18 18 12 Blood Pressure 123/77 Pulse Oximetry 97 99 98 Oxygen Delivery 09/28/25 17:23 09/28/25 17:50 09/28/25 18:47 Temperature Pulse Rate 79 76 75 Respiratory Rate 14 18 17 Blood Pressure Pulse Oximetry 100 97 97 Oxygen Delivery 09/28/25 20:05 Temperature 98.1 F Pulse Rate 77 Respiratory Rate 14 Blood Pressure 137/78 Pulse Oximetry 100 Oxygen Delivery Exam Const: General: cooperative, healthy appearing, comfortable, no acute distress, well developed, awake, Physically active, average body habitus and well nourished Nutritional Appearance: average body habitus and well nourished Orientation/consciousness: oriented to person, oriented to place, oriented to time and patient oriented x3 Limitations: no limitations HENMT: Head: normal to inspection and abrasion Ears: hearing grossly normal bilaterally Eyes: General: appearance normal, both eyes and all related structures Alignment and Position: alignment normal Periorbital: periorbital findings normal Eyelids: eyelids normal Conjunctivae: conjunctivae normal EOM: EOMs intact bilaterally Neck: Neck: normal visual inspection and full ROM Chest: Chest palpation & inspection: normal inspection of the chest Resp: Effort & Inspection: normal respiratory effort Auscultation: clear to auscultation bilaterally Percussion: percussion normal Cardio: Palpation: normal PMI Rate: regular rate Rhythm: regular rhythm Heart sounds: S1 normal heart sound present and S2 normal heart sound present Peripheral pulses: Peripheral pulses 2+ throughout GI: Inspection: normal to inspection Percussion: Yes normal to percussion Auscultation: normal bowel sounds Rectal Exam: deferred Skin: General skin exam: normal color Lesions: no lesions Rashes: no rashes Trauma: no lacerations or abrasions Wounds: no wounds Hair: normal Nails: normal Neuro: General: oriented to person, oriented to place, oriented to time and patient oriented x3 Cranial nerves: Yes Normal hearing present Cognition (Neuro): normal cognition Speech: normal speech Motor exam (neuro): 5/5 motor strength present throughout Sensory Exam: normal sensation Extrem: General: normal to inspection Right upper extremity: normal to inspection and shoulder/upper arm Left upper extremity: normal to inspection and shoulder/upper arm Right lower extremity: normal to inspection Left lower extremity: normal to inspection Psych: Appearance: grossly normal Mental Status: mental status grossly normal Speech and movement: Normal speech and movement present Affect: normal affect Attitude: cooperative Thought process: Normal thought process present Thought content: Yes Normal thought content present Insight: Good insight present (Psych) Judgement: Good judgement present (Psych) H&P: Results Labs Labs: Short CBC 09/28/25 Range/Units 10:09 WBC 6.0 (4.5-10.0) K/mm3 Hgb 16.0 (14.0-18.0) g/dL Hct 47.1 (42.0-52.0) % Plt Count 211 (150-375) k/mm3 BMP 09/28/25 10:09 Sodium 137 Potassium 4.0 Chloride 103 Carbon Dioxide 23 BUN 19 Creatinine 0.84 Glucose 142 H Calcium 9.3 Cardiac Enzymes 09/28/25 09/28/25 09/28/25 Range/Units 10:09 13:00 15:50 Troponin I < 0.012 0.065 H* D 0.125 H* D (0.000-0.034) ng/mL Liver Function 09/28/25 Range/Units 10:09 Total Bilirubin 0.7 (0.2-1.3) mg/dL AST 33 (17-59) U/L ALT 32 (6-50) U/L Alkaline Phosphatase 77 (38-126) U/L Albumin 5.0 (3.5-5.1) g/dL ECG Interpretation: Test Date: 2025-09-28 10:04:47 Measurements Intervals Harrison Rate: 108 P: 60 NV: 153 QRS: 20 QRSD: 81 T: 58 QT: 308 QTc: 414 Interpretive Statements SINUS TACHYCARDIA Electronically Signed On 09-28-2025 11:25:50 VIDEO CAMERA OPERATOR by Yadiel Reaves D.O Imaging Chest x-ray: Radiologist's impression: ITS Impressions Chest X-Ray 09/28/25 11:03 IMPRESSION: 1. Portable chest x-ray demonstrating no focal acute process. Assessment and Plan Assessment and plan (1) SVT (supraventricular tachycardia): Code(s): I47.10 - Supraventricular tachycardia, unspecified Status: Acute Assessment and Plan: -patient's heart rate was initially in the 220. The patient has a watch that he monitors his heart rate. At the time of the rapid heart rate the patient was feeling dizzy and had chest pain that radiated to his right neck. Once his heart rate came down he was symptom-free. The patient was found to have SVT with a heart rate of 200 beats per minute on admission. He self converted to sinus rhythm. No prior history of SVT. -he stated that he is had an echo in the past as well as 2 cardiac caths. -patient is now sinus rhythm with heart rate in the 70s. -the patient may benefit from a Holter monitor. -the patient denies any [id number] medication or any new medications. -his thyroid level was within normal limits. -cardiology has been consulted further recommendations would greatly be appreciated. -I also ordered a CTA pulmonary. -his electrolytes are within normal limits. -urine tox screen when able (2) Elevated troponin: Code(s): R79.89 - Other specified abnormal findings of blood chemistry Status: Acute Assessment and Plan: -troponins were 0.012, 0.065, 0.125 respectively. I did order a another troponin and if that is elevated out continue to trend. -the patient did complain of having chest pain as well as right neck pain. However the patient stated that he has had 2 cardiac caths and has no history of coronary artery disease. -this could be demand ischemia from the rapid heart rate. -cardiology has been consulted for further recommendations. -the patient does not always take his aspirin daily. However will continue with his daily aspirin. -continue with rosuvastatin (3) Hyperlipidemia: Qualifiers: Hyperlipidemia type: unspecified Qualified Code(s): E78.5 - Hyperlipidemia, unspecified Code(s): E78.5 - Hyperlipidemia, unspecified Status: Acute Assessment and Plan: -continue with rosuvastatin (4) Essential hypertension: Code(s): I10 - Essential (primary) hypertension Status: Acute Assessment and Plan: -continue with telmisartan if blood pressure allows. Current blood pressure 137/78. (5) Pulmonary hypertension: Code(s): I27.20 - Pulmonary hypertension, unspecified Status: Inactive Assessment and Plan: -the patient stated that he has had echos in the past and denies he has pulmonary hypertension. However the patient is on tadalfil and therefore will continue with this.. -repeat echo if not performed in the last 6 months. (6) Type 2 diabetes mellitus with hyperglycemia: Code(s): E11.65 - Type 2 diabetes mellitus with hyperglycemia Status: Acute Assessment and Plan: -the patient has a continues glucose monitor. He stated that his last A1c was 6.2. However the labs from here on 03/26/2025 showing a hemoglobin A1c of 5.8. -sliding scale insulin with a.c. HS. -continue with large in a pharmacist to reduce home insulin basal dose by 20% daily. -continue with Jardiance (7) Hypothyroidism (acquired): Code(s): E03.9 - Hypothyroidism, unspecified Status: Acute Assessment and Plan: -the patient has a history of Graves disease -he has had of thyroidectomy -his TSH is 0.794 which is normal. -continue with levothyroxine (8) BOGDAN on CPAP: Code(s): G47.33 - Obstructive sleep apnea (adult) (pediatric); Z99.89 - Dependence on other enabling machines and devices Status: Acute Assessment and Plan: -continue to titrate CPAP as per home settings. Quality VTE Prophylaxis VTE prophylaxis: pharmacologic ordered
[2025-09-28 23:06] LABS: Hemoglobin A1C 5.7 % (<5.7)
[2025-09-28] MEDS: GABAPENTIN 300 MG CAPSULE PO (23:18)
[2025-09-28 23:39] LABS: Cannabinoid Screen Urine Negative (Negative)
[2025-09-29] VITALS (11 sets, daily range): BP systolic 118–133; BP diastolic 60–72; PULSE 62–75; RESP 14–16; TEMP 36.6–36.8; O2SAT 97–100
--- NOTE | 2025-09-29 | ECHO_ITS ---
Patient Info Name: Gilbert Dhillon Age: 65 years : 1960 Gender: Male Ht: 66 in Wt: 156 lbs BSA: 1.83 m2 HR: 69 bpm BP: 119 / 62 mmHg Heart Rhythm: Sinus Rhythm Technical Quality: Good Exam Date: 09/29/2025 9:17 AM Patient Status: O Admit Date: 09/28/2025 Exam Type: CA echo doppler color flow Complete two-dimensional, color flow and Doppler transthoracic echocardiogram is performed. Staff Referring Physician: Snehal Jeffers NP Lehr Loader: Charlie Mcmahon III Attending Provider: Aden Santana Summary 1. Complete two-dimensional, color flow and Doppler transthoracic echocardiogram is performed. 2. Left ventricular chamber dimension is normal. 3. Left ventricular systolic function is normal, estimated at 60-65. 4. There is no increased left ventricular wall thickness. 5. The left ventricular diastolic function is grade I diastolic dysfunction. 6. There is mild mitral valve regurgitation. 7. There is mild tricuspid valve regurgitation. Left Ventricle Left ventricular chamber dimension is normal. Left ventricular systolic function is normal, estimated at 60-65. There is no increased left ventricular wall thickness. The left ventricular diastolic function is grade I diastolic dysfunction. Right Ventricle Right ventricular chamber dimension is normal. Right ventricular systolic function is normal. Left Atria Left atrial chamber dimension is normal. Right Atria Right atrial chamber dimension is normal. Atrial Septum Intact interatrial septum visualized by color flow imaging. Aortic Valve The aortic valve is trileaflet. There is mild aortic valve sclerosis. There is no aortic valve stenosis. There is trace aortic valve regurgitation. Pulmonic Valve The pulmonic valve is normal. There is no pulmonic valve stenosis. There is trace pulmonic regurgitation. Mitral Valve The mitral valve has normal leaflets. There is no mitral valve stenosis. There is mild mitral valve regurgitation. Tricuspid Valve The tricuspid valve leaflets are normal. There is no significant tricuspid valve stenosis. There is mild tricuspid valve regurgitation. No pulmonary hypertension, estimated pulmonary arterial systolic pressure is 33 mmHg. Pericardium/Pleural The pericardium appears normal. There is trivial pericardial effusion. Inferior Vena Cava Normal inferior vena cava with <50% collapse upon inspiration consistent with elevated right atrial pressure, 10 mmHg. Aorta The aortic root size at the sinus of Valsalva is normal. Left Ventricular Outflow Tract Name Value Normal LVOT 2D LVOT Diameter 2.2 cm LVOT Doppler LVOT Peak Velocity 94 cm/s LVOT Peak Gradient 4 mmHg LVOT Mean Gradient 2 mmHg LVOT VTI 19 cm LVOT VTI/AV VTI Ratio 1.0 LVOT Stroke Volume 70 ml LVOT CO 4.4 l/min LVOT CI 2.4 l/min/m2 Pulmonic Valve Name Value Normal PV Doppler PV Peak Velocity 84 cm/s PV Peak Gradient 3 mmHg PV Mean Gradient 2 mmHg Mitral Valve Name Value Normal MV Doppler MV Peak Gradient 2 mmHg MV Mean Gradient 1 mmHg MV Area (Cont Eq VTI) 3.2 cm2 MV Diastolic Function MV E Peak Velocity 77 cm/s MV A Peak Velocity 71 cm/s MV E/A 1.1 MV Decel Time (PW) 208 ms MV Annular TDI MV E/e' (Septal) 8.0 MV E/e' (Lateral) 6.6 MV E/e' (Average) 7.3 Tricuspid Valve Name Value Normal TV Regurgitation Doppler TR Peak Velocity 240 cm/s TR Peak Gradient 23 mmHg Estimated PAP/RSVP RA Pressure 10 mmHg <=5 PA Systolic Pressure 33 mmHg <36 RV Systolic Pressure 33 mmHg <36 TV Annular TDI TV Lateral Calista s' Velocity 16.9 cm/s >=9.5 Aortic Valve Name Value Normal AV Doppler AV Peak Velocity 94 cm/s AV Peak Gradient 4 mmHg AV Mean Gradient 2 mmHg AV VTI 20 cm AV Area (Cont Eq VTI) 3.5 cm2 >=3.0 AV Area (Cont Eq Meet) 3.6 cm2 AV DI (Meet) 0.99 AV Regurgitation 2D LVOT Area 3.6 cm2 Ventricles Name Value Normal LV Dimensions 2D/MM IVS Diastolic Thickness (2D) 1.0 cm 0.6-1.0 LVID Diastole (2D) 4.1 cm 4.2-5.8 LVIW Diastolic Thickness (2D) 0.9 cm 0.6-1.0 LVID Systole (2D) 2.6 cm 2.5-4.0 LVOT Diameter 2.2 cm LV Mass (2D Cubed) 119.05 g 88.00-224.00 LV Mass Index (2D Cubed) 65 g/m2 49-115 Relative Wall Thickness (2D) 0.44 <=0.42 LV Fractional Shortening/Ejection Fraction 2D/MM LV Fractional Shortening (2D) 35 % 25-43 LV EF (2D Teichholz) 65 % LV Diastolic Volume (4C MOD) 63 ml LV EF (4C MOD) 52 % LV Diastolic Volume (2C MOD) 64 ml LV EF (2C MOD) 60 % LV Diastolic Volume (BP MOD) 66 ml 62-150 LV Diastolic Volume Index (BP MOD) 36 ml/m2 34-74 LV Systolic Volume (BP MOD) 29 ml 21-61 LV Systolic Volume Index (BP MOD) 16 ml/m2 11-31 LV EF (BP MOD) 55 % 52-72 LV Diastolic Length (4C) 7.5 cm LV Systolic Length (4C) 6.6 cm LV Stroke Volume (4C MOD) 33 ml Atria Name Value Normal LA Dimensions LA Volume (4C A-L) 36 ml LA Volume (BP A-L) 45 ml RA Dimensions RA Systolic Major [place] Length (4C) 4.9 cm 2.1-2.7 RA Area (4C) 16.5 cm2 <=18.0 Report Signatures
[2025-09-29 01:54] LABS: Hematocrit 40.5 % (42.0-52.0); Hemoglobin 13.9 g/dL (14.0-18.0); Mean Corpuscular HGB Conc 34.3 g/dl (32-36); Mean Corpuscular Hemoglobin 31.4 pg (26-34); Mean Corpuscular Volume 91.6 fl (80-100); Platelet Count Result 175 k/mm3 (150-375); Red Blood Count 4.42 M/mm3 (4.6-6.20); White Blood Count 5.9 K/mm3 (4.5-10.0)
[2025-09-29 02:26] LABS: Troponin I 0.056 ng/mL (0.000-0.034)
[2025-09-29] MEDS: LEVOTHYROXINE SODIUM 112 MCG TABLET PO (06:19)
[2025-09-29] MEDS: LEVOTHYROXINE SODIUM 25 MCG TABLET PO (06:19)
--- NOTE | 2025-09-29 08:36 | PM.IMPN ---
Progress Note: A&P Assessment and Plan (1) SVT (supraventricular tachycardia): Code(s): I47.10 - Supraventricular tachycardia, unspecified Status: Acute Assessment and Plan: -patient's heart rate was initially in the 220. The patient has a walked that he monitors his heart rate. At the time of the rapid heart rate the patient was feeling dizzy and had chest pain that radiated to his right neck. Once his heart rate came down he was symptom-free. -he stated that he is had an echo in the past as well as 2 cardiac caths. -patient is now sinus rhythm with heart rate in the 70s. -the patient may benefit from a Holter monitor. -the patient denies any [id number] medication or any new medications. -his thyroid level was within normal limits. -cardiology has been consulted further recommendations would greatly be appreciated. -I also ordered a CTA pulmonary. (2) Elevated troponin: Code(s): R79.89 - Other specified abnormal findings of blood chemistry Status: Acute Assessment and Plan: -troponins were 0.012, 0.065, 0.125 respectively. I did order a another troponin and if that is elevated out continue to trend. -the patient did complain of having chest pain as well as right neck pain. However the patient stated that he has had 2 cardiac caths and has no history of coronary artery disease. -this could be demand ischemia from the rapid heart rate. -cardiology has been consulted for further recommendations. -the patient does not always take his aspirin daily. However will continue with his daily aspirin. -continue with rosuvastatin (3) Hyperlipidemia: Qualifiers: Hyperlipidemia type: unspecified Qualified Code(s): E78.5 - Hyperlipidemia, unspecified Code(s): E78.5 - Hyperlipidemia, unspecified Status: Acute Assessment and Plan: -continue with rosuvastatin (4) Essential hypertension: Code(s): I10 - Essential (primary) hypertension Status: Acute Assessment and Plan: -continue with telmisartan if blood pressure allows. Current blood pressure 137/78. (5) Pulmonary hypertension: Code(s): I27.20 - Pulmonary hypertension, unspecified Status: Inactive Assessment and Plan: -the patient stated that he has had echos in the past and denies he has pulmonary hypertension. However the patient is on tadalfil and therefore will continue with this.. -repeat echo if not performed in the last 6 months. (6) Type 2 diabetes mellitus with hyperglycemia: Code(s): E11.65 - Type 2 diabetes mellitus with hyperglycemia Status: Acute Assessment and Plan: -the patient has a continues glucose monitor. He stated that his last A1c was 6.2. However the labs from here on 03/26/2025 showing a hemoglobin A1c of 5.8. -sliding scale insulin with a.c. HS. -continue with large in a pharmacist to reduce home insulin basal dose by 20% daily. -continue with Jardiance (7) Hypothyroidism (acquired): Code(s): E03.9 - Hypothyroidism, unspecified Status: Acute Assessment and Plan: -the patient has a history of Graves disease -he has had of thyroidectomy -his TSH is 0.794 which is normal. -continue with levothyroxine (8) BOGDAN on CPAP: Code(s): G47.33 - Obstructive sleep apnea (adult) (pediatric); Z99.89 - Dependence on other enabling machines and devices Status: Acute Assessment and Plan: -continue to titrate CPAP as per home settings. Subjective Date/time seen: 09/29/25 08:36 Review of Systems Constitutional: Constitutional: Reports as per HPI and Reports no additional constitutional complaints Eyes: Eyes: Reports as per HPI and Reports no additional eye complaints ENT: Reports system reviewed and no additional complaints, except as documented and Reports Normal hearing present Cardiovascular: Cardiovascular: Reports no additional cardiovascular complaints Respiratory: Respiratory: Reports as per HPI and Reports no additional respiratory complaints Gastrointestinal: Gastrointestinal: Reports as per HPI and Reports no additional gastrointestinal complaints Musculoskeletal: Musculoskeletal: Reports no additional musculoskeletal complaints Integumentary/Breasts: Skin/Breast: Reports system reviewed and no additional complaints, except as docu Neurologic: Reports system reviewed and no additional complaints, except as documented and Reports Normal hearing present Psychiatric: Psychiatric: Reports no additional psychiatric complaints and Reports as per HPI Hematologic/Lymphatic: Hematologic/Lymphatic: Reports no additional hematologic/lymphatic complaints Allergic/Immunologic: Allergic/Immunologic: Reports no additional allergic/immunologic complaints Exam Const: General: cooperative, healthy appearing, comfortable, no acute distress, well developed, awake, Physically active, average body habitus and well nourished Nutritional Appearance: average body habitus and well nourished Orientation/consciousness: oriented to person, oriented to place, oriented to time and patient oriented x3 Limitations: no limitations HENMT: Head: normal to inspection and abrasion Ears: hearing grossly normal bilaterally Eyes: General: appearance normal, both eyes and all related structures Alignment and Position: alignment normal Periorbital: periorbital findings normal Eyelids: eyelids normal Conjunctivae: conjunctivae normal EOM: EOMs intact bilaterally Neck: Neck: normal visual inspection and full ROM Chest: Chest palpation & inspection: normal inspection of the chest Resp: Effort & Inspection: normal respiratory effort Auscultation: clear to auscultation bilaterally Percussion: percussion normal Cardio: Palpation: normal PMI Rate: regular rate Rhythm: regular rhythm Heart sounds: S1 normal heart sound present and S2 normal heart sound present Peripheral pulses: Peripheral pulses 2+ throughout GI: Inspection: normal to inspection Auscultation: normal bowel sounds Rectal Exam: deferred Skin: General skin exam: normal color Lesions: no lesions Rashes: no rashes Trauma: no lacerations or abrasions Wounds: no wounds Hair: normal Nails: normal Neuro: General: oriented to person, oriented to place, oriented to time and patient oriented x3 Cranial nerves: Yes Normal hearing present Cognition (Neuro): normal cognition Speech: normal speech Motor exam (neuro): 5/5 motor strength present throughout Sensory Exam: normal sensation Extrem: General: normal to inspection Right upper extremity: normal to inspection and shoulder/upper arm Left upper extremity: normal to inspection and shoulder/upper arm Right lower extremity: normal to inspection Left lower extremity: normal to inspection Psych: Appearance: grossly normal Mental Status: mental status grossly normal Speech and movement: Normal speech and movement present Affect: normal affect Attitude: cooperative Thought process: Normal thought process present Insight: Good insight present (Psych) Judgement: Good judgement present (Psych) Objective Data Vital Signs Vital Signs: Vital Signs - 24 hr 09/28/25 10:00 09/28/25 10:04 09/28/25 10:10 Temperature 98.2 F Pulse Rate 213 H 108 H Respiratory Rate 20 16 Blood Pressure 95/61 L 160/86 H Pulse Oximetry 98 100 Oxygen Delivery Room Air 09/28/25 10:16 09/28/25 10:31 09/28/25 10:46 Temperature Pulse Rate 112 H 109 H 109 H Respiratory Rate 17 16 20 Blood Pressure 112/74 123/76 140/65 Pulse Oximetry 100 99 100 Oxygen Delivery 09/28/25 11:26 09/28/25 11:31 09/28/25 12:46 Temperature Pulse Rate 104 H 101 H 97 Respiratory Rate 13 18 12 Blood Pressure 120/73 123/76 122/71 Pulse Oximetry 97 96 100 Oxygen Delivery 09/28/25 13:00 09/28/25 13:02 09/28/25 13:18 Temperature Pulse Rate 96 94 97 Respiratory Rate 13 16 17 Blood Pressure 117/69 Pulse Oximetry 99 99 100 Oxygen Delivery 09/28/25 13:31 09/28/25 14:01 09/28/25 14:16 Temperature Pulse Rate 92 86 91 Respiratory Rate 17 15 13 Blood Pressure 129/81 128/75 136/73 Pulse Oximetry 100 100 100 Oxygen Delivery 09/28/25 14:18 09/28/25 14:31 09/28/25 14:32 Temperature Pulse Rate 91 87 85 Respiratory Rate 18 20 17 Blood Pressure 122/71 Pulse Oximetry 100 98 98 Oxygen Delivery 09/28/25 14:45 09/28/25 14:46 09/28/25 15:00 Temperature Pulse Rate 93 94 87 Respiratory Rate 12 15 15 Blood Pressure 138/68 Pulse Oximetry 98 97 97 Oxygen Delivery 09/28/25 15:01 09/28/25 15:16 09/28/25 15:36 Temperature Pulse Rate 85 88 83 Respiratory Rate 15 15 14 Blood Pressure 132/66 Pulse Oximetry 97 97 96 Oxygen Delivery 09/28/25 15:45 09/28/25 15:46 09/28/25 16:00 Temperature Pulse Rate 85 84 82 Respiratory Rate 12 16 13 Blood Pressure 128/68 127/70 Pulse Oximetry 97 97 97 Oxygen Delivery 09/28/25 16:07 09/28/25 16:15 09/28/25 16:16 Temperature Pulse Rate 95 86 81 Respiratory Rate 18 18 12 Blood Pressure 123/77 Pulse Oximetry 97 99 98 Oxygen Delivery 09/28/25 17:23 09/28/25 17:50 09/28/25 18:47 Temperature Pulse Rate 79 76 75 Respiratory Rate 14 18 17 Blood Pressure Pulse Oximetry 100 97 97 Oxygen Delivery 09/28/25 20:04 09/28/25 20:05 09/28/25 22:00 Temperature 98.1 F Pulse Rate 86 77 67 Respiratory Rate 14 Blood Pressure 137/78 Pulse Oximetry 100 Oxygen Delivery 09/29/25 00:00 09/29/25 00:00 09/29/25 00:00 Temperature 97.8 F Pulse Rate 63 62 Respiratory Rate 16 Blood Pressure 129/69 Pulse Oximetry 99 Oxygen Delivery Room Air 09/29/25 02:00 09/29/25 03:35 09/29/25 03:39 Temperature 98.0 F Pulse Rate 64 66 Respiratory Rate 14 Blood Pressure 119/62 Pulse Oximetry 97 Oxygen Delivery Room Air 09/29/25 04:00 09/29/25 06:00 09/29/25 07:32 Temperature 98.0 F Pulse Rate 64 69 72 Respiratory Rate 16 Blood Pressure 118/60 Pulse Oximetry 97 Oxygen Delivery Intake/Output Intake/Output: Intake & Output 09/26/25 09/27/25 09/28/25 09/29/25 23:59 23:59 23:59 23:59 Intake Total 150 Output Total 1660 Balance -1510 Meds/Results Medications: Active Medications Generic Name Dose Route Start Last Admin Trade Name Freq PRN Reason Stop Dose Admin Aspirin 81 mg 09/29/25 08:00 Aspirin 81 Mg Chewable Tablet PO DAILY@0800 [facility] Calcium Carbonate 500 mg 09/29/25 12:00 Calcium Carbonate (Oscal) 500 Mg Tablet PO DAILY@1200 [facility] Dextrose 12.5 gm 09/28/25 22:26 Dextrose 50% 25 Gm/50 Ml Syringe IV PUSH PRN PRN Hypoglycemia Protocol Empagliflozin 25 mg 09/29/25 09:00 Empagliflozin 25 Mg Tablet PO QAM [facility] Enoxaparin Sodium 40 mg 09/29/25 09:00 Enoxaparin 40 Mg/0.4 Ml Syringe SUB-Q DAILY [facility] Gabapentin 300 mg 09/28/25 22:30 09/28/25 23:18 Gabapentin 300 Mg Capsule PO 300 mg QHS [facility] Administration Glucagon 1 mg 09/28/25 22:26 Glucagon For Inj 1 Mg Vial IM PRN PRN Hypoglycemia Protocol Glucose 15 gm 09/28/25 22:26 Glucose Oral Gel 15 Gm Of Glucse In 37.5 Gm Tube PO PRN PRN Hypoglycemia Protocol Dextrose 1,000 mls @ 100 mls/hr 09/28/25 22:26 Dextrose 5% 1,000 Ml IVPB PRN PRN Hypoglycemia Protocol Insulin Aspart 2 - 5 units 09/29/25 08:00 Insulin Aspart (*Bkc) 100 Units/Ml SUB-Q TIDWM [facility] Protocol Insulin Glargine 9.6 units 09/29/25 09:00 Insulin Glargine (*Bkc) 100 Units/Ml SUB-Q DAILY [facility] Levothyroxine Sodium 25 mcg 09/29/25 06:30 09/29/25 06:19 Levothyroxine Sodium 25 Mcg Tablet PO 25 mcg DAILY@0630 [facility] Administration Levothyroxine Sodium 112 mcg 09/29/25 06:30 09/29/25 06:19 Levothyroxine Sodium 112 Mcg Tablet PO 112 mcg DAILY@0630 [facility] Administration Meloxicam 15 mg 09/29/25 09:00 Meloxicam 7.5 Mg Tablet PO DAILY [facility] Miscellaneous Information 0 each 09/28/25 00:01 Tadalafil 20mg Nonform Can Pt Bring From Home? XX 10/28/25 00:00 CLARIFY [facility] Non-Formulary Medication 40 mg 09/29/25 09:00 Tadalafil PO 10/29/25 08:59 DAILY [facility] Perflutren Lipid Microsphere 0 ml 09/28/25 22:48 Perflutren Lipid Microspheres 1.5 Ml Vial Diluted To 10 Ml Total Volume IV PUSH 10/01/25 22:48 ONCE PRN adequate visualization Protocol Rosuvastatin Calcium 20 mg 09/29/25 09:00 Rosuvastatin 20 Mg Tablet PO DAILY [facility] Telmisartan 40 mg 09/29/25 09:00 Telmisartan 40 Mg Tablet PO DAILY [facility] Vitamin D 25 mcg 09/29/25 09:00 Cholecalciferol (Vitamin D3) 25 Mcg (1,000 Units) Tablet PO DAILY [facility] Radiology Results: ITS Impressions Chest X-Ray 09/28/25 11:03 IMPRESSION: 1. Portable chest x-ray demonstrating no focal acute process. Chest CTA 09/29/25 06:25 IMPRESSION: 1. No pulmonary embolus. Labs Labs: Laboratory Results - last 24 hr 09/28/25 09/28/25 09/28/25 10:08 10:09 13:00 WBC 6.0 RBC 5.10 Hgb 16.0 Hct 47.1 MCV 92.4 MCH 31.4 MCHC 34.0 RDW 12.1 Plt Count 211 MPV 8.5 Immature Gran % (Auto) 0.3 Neut % (Auto) 72.7 Lymph % (Auto) 18.9 [place] % (Auto) 5.8 Eos % (Auto) 2.0 Baso % (Auto) 0.3 Lymph # (Auto) 1.14 [place] # (Auto) 0.4 Eos # (Auto) 0.1 Baso # (Auto) 0.0 Abs Immat Gran (auto) 0.02 Absolute Neuts (auto) 4.4 Absolute Nucleated RBC 0.000 Nucleated RBC % 0.0 PT 12.7 INR 0.9 APTT 26.8 Sodium 137 Potassium 4.0 Chloride 103 Carbon Dioxide 23 Anion Gap 11 BUN 19 Creatinine 0.84 Estim Creat Clear Calc 68 Estimated GFR > 60 Glucose 142 H POC Capillary Glucose Hemoglobin A1c 5.7 Calcium 9.3 Magnesium 2.3 Total Bilirubin 0.7 AST 33 ALT 32 Alkaline Phosphatase 77 Troponin I < 0.012 0.065 H* D Total Protein 8.7 H Albumin 5.0 Lipase 297 TSH (Reflex) 0.794 Urine Opiates Screen Urine Methadone Screen Ur Barbiturates Screen Ur Phencyclidine Scrn Ur Amphetamine Screen U Benzodiazepines Scrn Urine Cocaine Screen U Cannabinoids Screen 09/28/25 09/28/25 09/29/25 15:50 23:07 01:34 WBC 5.9 RBC 4.42 L Hgb 13.9 L Hct 40.5 L MCV 91.6 MCH 31.4 MCHC 34.3 RDW 11.9 Plt Count 175 MPV 8.6 Immature Gran % (Auto) Neut % (Auto) Lymph % (Auto) [place] % (Auto) Eos % (Auto) Baso % (Auto) Lymph # (Auto) [place] # (Auto) Eos # (Auto) Baso # (Auto) Abs Immat Gran (auto) Absolute Neuts (auto) Absolute Nucleated RBC Nucleated RBC % PT INR APTT Sodium Potassium Chloride Carbon Dioxide Anion Gap BUN Creatinine Estim Creat Clear Calc Estimated GFR Glucose POC Capillary Glucose 100 Hemoglobin A1c Calcium Magnesium Total Bilirubin AST ALT Alkaline Phosphatase Troponin I 0.125 H* D 0.056 H* Total Protein Albumin Lipase TSH (Reflex) Urine Opiates Screen Negative Urine Methadone Screen Negative Ur Barbiturates Screen Negative Ur Phencyclidine Scrn Negative Ur Amphetamine Screen Negative U Benzodiazepines Scrn Negative Urine Cocaine Screen Negative U Cannabinoids Screen Negative 09/29/25 06:39 WBC RBC Hgb Hct MCV MCH MCHC RDW Plt Count MPV Immature Gran % (Auto) Neut % (Auto) Lymph % (Auto) [place] % (Auto) Eos % (Auto) Baso % (Auto) Lymph # (Auto) [place] # (Auto) Eos # (Auto) Baso # (Auto) Abs Immat Gran (auto) Absolute Neuts (auto) Absolute Nucleated RBC Nucleated RBC % PT INR APTT Sodium Potassium Chloride Carbon Dioxide Anion Gap BUN Creatinine Estim Creat Clear Calc Estimated GFR Glucose POC Capillary Glucose 91 Hemoglobin A1c Calcium Magnesium Total Bilirubin AST ALT Alkaline Phosphatase Troponin I Total Protein Albumin Lipase TSH (Reflex) Urine Opiates Screen Urine Methadone Screen Ur Barbiturates Screen Ur Phencyclidine Scrn Ur Amphetamine Screen U Benzodiazepines Scrn Urine Cocaine Screen U Cannabinoids Screen Quality VTE Prophylaxis VTE prophylaxis: pharmacologic ordered
[2025-09-29] MEDS: TELMISARTAN 40 MG TABLET PO (08:55)
[2025-09-29] MEDS: CHOLECALCIFEROL (VITAMIN D3) 25 MCG (1,000 UNITS) TABLET PO (08:55)
[2025-09-29] MEDS: ENOXAPARIN 40 MG/0.4 ML SYRINGE SUB-Q (08:56)
[2025-09-29] MEDS: MELOXICAM 7.5 MG TABLET 15 MG PO (08:56)
[2025-09-29] MEDS: ROSUVASTATIN 20 MG TABLET PO (08:56)
[2025-09-29] MEDS: ASPIRIN 81 MG CHEWABLE TABLET PO (08:56)
[2025-09-29] MEDS: EMPAGLIFLOZIN 25 MG TABLET PO (08:56)
--- NOTE | 2025-09-29 08:59 | PM.CNCAR ---
Assessment and Plan Assessment and plan (1) SVT (supraventricular tachycardia): Code(s): I47.10 - Supraventricular tachycardia, unspecified Status: Acute Assessment and Plan: found to have SVT with rate >200 bpm on admission self converted to NSR no prior history of SVT his electrolytes were wnl and TSH was wnl as well. currently not on any rate lowering agents and given one time event will not initiate BB at this time, but if recurrent can consider caffeine reduction encouraged. will plan for OP tele monitor and follow up after (2) Elevated troponin: Code(s): R79.89 - Other specified abnormal findings of blood chemistry Status: Acute Assessment and Plan: patient troponin elevated on admission and peaked at 0.125, have trended down elevation most likely represents demand ischemia in the setting of SVT His EKG does not demonstrate any acute ST/T wave changes. he had normal coronaries on [facility] in 2019 last echo in 03/2025 showed a normal EF a repeat echo is pending to look for any LV dysfunction or WMA at this time no invasive w/u is planned If echo with no acute changes will plan for OP follow up continue aspirin 81 mg daily and cretor 20 mg daily (3) Essential hypertension: Code(s): I10 - Essential (primary) hypertension Status: Acute Assessment and Plan: blood pressure controlled continue telmisartan 40 mg daily (4) Hyperlipidemia: Qualifiers: Hyperlipidemia type: unspecified Qualified Code(s): E78.5 - Hyperlipidemia, unspecified Code(s): E78.5 - Hyperlipidemia, unspecified Status: Acute Assessment and Plan: on crestor 20 mg daily will continue (5) Type 2 diabetes mellitus with hyperglycemia: Code(s): E11.65 - Type 2 diabetes mellitus with hyperglycemia Status: Acute Assessment and Plan: glycemic control as per primary team (6) Hypothyroidism (acquired): Code(s): E03.9 - Hypothyroidism, unspecified Status: Acute Assessment and Plan: tsh wnl on labs continue levothyroxine (7) BOGDAN on CPAP: Code(s): G47.33 - Obstructive sleep apnea (adult) (pediatric); Z99.89 - Dependence on other enabling machines and devices Status: Acute Assessment and Plan: -compliance with dental appliance encoruaged. Plan await echo 30 day OP monitor follow up with Dr. Figueroa after monitor completed History of Present Illness History of Present Illness Consult date/time: 09/29/25 08:59 Requesting physician: Snehal Jeffers APRN Consult reason: Other (SVT/elevated troponin ) Reason For Visit: Tachycardia, Elevated troponin Narrative: Glibert Dhillon is a 65 y.o. male with a a PMH of Sjogrens, BOGDAN, DM, HTN, HLD, hypothyroidism, osteopenia and Graves disease who presented to the ER with reports of palpitations and dizziness. According to the patient he was at work yesterday walking around when he felt a pounding in his chest. He then began to feel dizzy and lightheaded. He called another coworker over to him and they went to the nurse at [place] where he works. She took his VS and told him his HR was >200 and she could not do anything with that. He then decided to come to the ER. In the ER he was found to be in SVT with a HR >200 bpm, he self converted prior to any medication administration. Denies any associated chest pain or pressure. No shortness of breath. Denies any previous history of SVT. Reports drinking two 24 ounces cokes a day. This am feeling well. In ER found to have elevated troponin for which we were consulted. Review of Systems Review of Systems: All systems reviewed & are unremarkable except as noted in HPI and below PMFSH Past Medical History Medical History (Updated 09/28/25 @ 22:22 by Snehal Jeffers APRN) Other specified disorders of bone density and structure, other site Pulmonary hypertension Patient denies pulmonary hypertension Sjogrens syndrome GERD (gastroesophageal reflux disease) Globus sensation Hypogonadism in male Insomnia Hypersomnolence disorder, persistent Skin lesions Cyst BOGDAN on CPAP Chronic fatigue Erectile dysfunction associated with type 2 diabetes mellitus Essential hypertension Hx of Graves' disease Hyperlipidemia Hypothyroidism (acquired) 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 Osteopenia Primary osteoarthritis of both knees Testicular hypofunction Type 2 diabetes mellitus with hyperglycemia Surgical History Surgical History (Updated 09/28/25 @ 22:23 by Snehal Jeffers APRN) H/O vasectomy History of thyroidectomy with radioactive iodine Family History Family History (Updated 09/28/25 @ 22:29 by Snehal Jeffers APRN) Mother Family history of osteoporosis Hypertension Family history of Alzheimer's disease Family history of diabetes mellitus in first degree relative Cerebrovascular accident Patient's mother is Father Hypertension Family history of congestive heart failure Sibling Patient's sister is in good health Graves disease Social History Social History (Updated 09/28/25 @ 22:24 by Snehal Jeffers, [employer]) Social History: The patient is and lives with his . 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 Code status: Full code Smoking status: Never smoker Second hand tobacco smoke exposure: No Alcohol intake: never Substance use: never Substance use type: does not use Lack of Transportation: No Lack of Food: Never True Current Housing: I Have Housing Concerned About Future Housing: No Difficulty Paying Gas/Electric Bills: No Difficulty Paying for Meds: No Currently Unemployed: No Education: Bachelor's Degree Difficulty w/ Childcare or Family Care: No Living arrangements: with family Spiritual care concerns: No Agree to blood products: Yes Meds Home Medications and Allergies Home Medications ?Medication ?Instructions ?Recorded ?Confirmed ?Type aspirin 81 mg capsule 81 mg PO DAILY 06/08/22 09/28/25 History cholecalciferol (vitamin D3) 25 25 mcg PO DAILY 09/12/23 09/28/25 History mcg (1,000 unit) tablet multivitamin (Daily Multi-Vitamin 1 tablet PO DAILY 09/12/23 09/28/25 History tablet) vitamin B complex (B 1 tablet PO DAILY 09/12/23 09/28/25 History Complex-Vitamin B12 tablet) calcium carbonate (Calcium 600) 600 mg PO DAILY 09/27/23 09/28/25 History eszopiclone 3 mg tablet 3 mg PO QHS 90 days #90 tabs 09/12/24 09/28/25 Rx glucagon 3 mg/actuation nasal 3 mg intranasal ONCE PRN 09/24/24 09/28/25 Rx spray (Baqsimi) hypoglycemia #1 ea omeprazole 20 mg capsule,delayed 20 mg PO DAILY 09/24/24 09/28/25 History release gabapentin 300 mg capsule 300 mg PO QHS #90 caps 03/16/25 09/28/25 Rx meloxicam 15 mg tablet 15 mg PO DAILY #90 tabs 03/16/25 09/28/25 Rx Jardiance 25 mg tablet 25 mg PO QAM 90 days #90 tabs 03/17/25 09/28/25 Rx (empagliflozin) levothyroxine 137 mcg capsule 137 mcg PO DAILY 90 days #90 caps 03/17/25 09/28/25 Rx pen needle, diabetic 32 gauge x #400 ea 03/17/25 09/28/25 Rx 5/32 tirzepatide 15 mg/0.5 mL 15 mg (0.5 mL) subcut WEEKLY 3 03/26/25 09/28/25 Rx subcutaneous pen injector months #6.5 mL tadalafil 20 mg tablet 40 mg (2 x 20 mg) PO DAILY 05/13/25 09/28/25 Rx Pulmonary hypertension 90 days #180 tabs insulin glargine U-300 conc 300 12 unit (0.04 mL) subcut DAILY 3 05/27/25 09/28/25 Rx unit/mL (1.5 mL) subcutaneous pen months #4.5 mL (Toujeo SoloStar U-300 Insulin) blood-glucose sensor (Dexcom G7 #9 ea 07/15/25 09/28/25 Rx Sensor device) rosuvastatin 20 mg tablet 20 mg PO DAILY #90 tabs 07/30/25 09/28/25 Rx telmisartan 40 mg tablet 40 mg PO DAILY #90 tabs 07/30/25 09/28/25 Rx insulin aspart U-100 100 unit/mL See Rx Instructions subcut TID PRN 09/28/25 09/28/25 History (3 mL) subcutaneous pen (Novolog hyperglycemia FlexPen U-100 Insulin aspart) modafinil 200 mg tablet 200 mg PO QAM PRN extreme 09/28/25 09/28/25 History sleepiness Allergies Allergy/AdvReac Type Severity Reaction Status Date / Time No Known Allergies Allergy Verified 09/28/25 20:17 Vital Signs Vital Signs - 24 hr 09/28/25 10:00 09/28/25 10:04 09/28/25 10:10 Temperature 36.8 C Pulse Rate 213 H 108 H Respiratory Rate 20 16 Blood Pressure 95/61 L 160/86 H Pulse Oximetry 98 100 Oxygen Delivery Room Air 09/28/25 10:16 09/28/25 10:31 09/28/25 10:46 Temperature Pulse Rate 112 H 109 H 109 H Respiratory Rate 17 16 20 Blood Pressure 112/74 123/76 140/65 Pulse Oximetry 100 99 100 Oxygen Delivery 09/28/25 11:26 09/28/25 11:31 09/28/25 12:46 Temperature Pulse Rate 104 H 101 H 97 Respiratory Rate 13 18 12 Blood Pressure 120/73 123/76 122/71 Pulse Oximetry 97 96 100 Oxygen Delivery 09/28/25 13:00 09/28/25 13:02 09/28/25 13:18 Temperature Pulse Rate 96 94 97 Respiratory Rate 13 16 17 Blood Pressure 117/69 Pulse Oximetry 99 99 100 Oxygen Delivery 09/28/25 13:31 09/28/25 14:01 09/28/25 14:16 Temperature Pulse Rate 92 86 91 Respiratory Rate 17 15 13 Blood Pressure 129/81 128/75 136/73 Pulse Oximetry 100 100 100 Oxygen Delivery 09/28/25 14:18 09/28/25 14:31 09/28/25 14:32 Temperature Pulse Rate 91 87 85 Respiratory Rate 18 20 17 Blood Pressure 122/71 Pulse Oximetry 100 98 98 Oxygen Delivery 09/28/25 14:45 09/28/25 14:46 09/28/25 15:00 Temperature Pulse Rate 93 94 87 Respiratory Rate 12 15 15 Blood Pressure 138/68 Pulse Oximetry 98 97 97 Oxygen Delivery 09/28/25 15:01 09/28/25 15:16 09/28/25 15:36 Temperature Pulse Rate 85 88 83 Respiratory Rate 15 15 14 Blood Pressure 132/66 Pulse Oximetry 97 97 96 Oxygen Delivery 09/28/25 15:45 09/28/25 15:46 09/28/25 16:00 Temperature Pulse Rate 85 84 82 Respiratory Rate 12 16 13 Blood Pressure 128/68 127/70 Pulse Oximetry 97 97 97 Oxygen Delivery 09/28/25 16:07 09/28/25 16:15 09/28/25 16:16 Temperature Pulse Rate 95 86 81 Respiratory Rate 18 18 12 Blood Pressure 123/77 Pulse Oximetry 97 99 98 Oxygen Delivery 09/28/25 17:23 09/28/25 17:50 09/28/25 18:47 Temperature Pulse Rate 79 76 75 Respiratory Rate 14 18 17 Blood Pressure Pulse Oximetry 100 97 97 Oxygen Delivery 09/28/25 20:04 09/28/25 20:05 09/28/25 22:00 Temperature 36.7 C Pulse Rate 86 77 67 Respiratory Rate 14 Blood Pressure 137/78 Pulse Oximetry 100 Oxygen Delivery 09/29/25 00:00 09/29/25 00:00 09/29/25 00:00 Temperature 36.6 C Pulse Rate 63 62 Respiratory Rate 16 Blood Pressure 129/69 Pulse Oximetry 99 Oxygen Delivery Room Air 09/29/25 02:00 09/29/25 03:35 09/29/25 03:39 Temperature 36.7 C Pulse Rate 64 66 Respiratory Rate 14 Blood Pressure 119/62 Pulse Oximetry 97 Oxygen Delivery Room Air 09/29/25 04:00 09/29/25 06:00 09/29/25 07:32 Temperature 36.7 C Pulse Rate 64 69 72 Respiratory Rate 16 Blood Pressure 118/60 Pulse Oximetry 97 Oxygen Delivery Exam Const: General: comfortable and no acute distress HENMT: Mouth: Yes moist mucous membranes Eyes: General: appearance normal, both eyes and all related structures Neck: Neck: supple and no JVD Thyroid: thyroid normal Carotids: no bruits Resp: Effort & Inspection: normal respiratory effort Auscultation: clear to auscultation bilaterally Cardio: Rate: regular rate Rhythm: regular rhythm Heart sounds: no gallops, no murmurs and no rubs Skin: General skin exam: normal color and no erythema Neuro: Speech: normal speech Extrem: General: normal to inspection and no pedal edema Psych: Mental Status: mental status grossly normal Results Labs and Meds 09/29/25 01:34 09/28/25 10:09 Lab results: Cardiac Enzymes 09/28/25 09/28/25 09/28/25 Range/Units 10:09 13:00 15:50 AST 33 (17-59) U/L Troponin I < 0.012 0.065 H* D 0.125 H* D (0.000-0.034) ng/mL 09/29/25 Range/Units 01:34 AST (17-59) U/L Troponin I 0.056 H* (0.000-0.034) ng/mL Coagulation 09/28/25 Range/Units 10:09 PT 12.7 (11.1-14.7) Seconds APTT 26.8 (22.3-36.8) Seconds CBC 09/28/25 09/29/25 Range/Units 10:09 01:34 WBC 6.0 5.9 (4.5-10.0) K/mm3 RBC 5.10 4.42 L (4.6-6.20) M/mm3 Hgb 16.0 13.9 L (14.0-18.0) g/dL Hct 47.1 40.5 L (42.0-52.0) % Plt Count 211 175 (150-375) k/mm3 Lymph # (Auto) 1.14 (0.9-3.2) K/mm3 Crosby # (Auto) 0.4 (0.1-0.6) K/mm3 Eos # (Auto) 0.1 (0-0.3) K/mm3 Baso # (Auto) 0.0 (0.0-0.1) K/mm3 Comprehensive Metabolic Panel 09/28/25 Range/Units 10:09 Sodium 137 (137-145) mmol/L Potassium 4.0 (3.4-5.0) mmol/L Chloride 103 (98-107) mmol/L Carbon Dioxide 23 (22-30) mmol/L BUN 19 (9-20) mg/dL Creatinine 0.84 (0.7-1.3) mg/dL Glucose 142 H (65-110) mg/dL Calcium 9.3 (8.4-10.2) mg/dL AST 33 (17-59) U/L ALT 32 (6-50) U/L Alkaline Phosphatase 77 (38-126) U/L Total Protein 8.7 H (6.3-8.2) g/dL Albumin 5.0 (3.5-5.1) g/dL Intake and Output 09/28/25 09/29/25 09/29/25 23:59 07:59 15:59 Intake Total 150 0 Output Total 760 900 Balance -610 -900 Intake: Oral 150 0 Output: Urine 760 900 Other: Number of Bowel Movements Today 0 Patient Weight 09/29/25 23:59 Weight 72.6 kg Imaging and Cardiology Echo: report reviewed (03/2025 per [facility] EF of 60% wiht mild TR ) Cardiac cath: report reviewed (09/17/20 normal coronaries with no focal stenosis. EF of 70% ) EKG results: image reviewed (SVT with rate of 213 bpm non-specific ST/T wave changes ) EKG Interpretation EKG shows: tachycardia (SVT )
[2025-09-29 10:07] LABS: Alanine Aminotransferase 28 U/L (6-50); Albumin Level 4.6 g/dL (3.5-5.1); Alkaline Phosphatase 60 U/L (38-126); Anion Gap 10 mmol/L (4-12); Aspartate Amino Transferase 35 U/L (17-59); Bilirubin,Total 0.7 mg/dL (0.2-1.3); Blood Urea Nitrogen 14 mg/dL (9-20); Calcium 8.8 mg/dL (8.4-10.2); Carbon Dioxide 23 mmol/L (22-30); Chloride 104 mmol/L (98-107); Estimated CRCL calculation 84 ml/min; Estimated Glomerular Filt Rate > 60; Glucose 162 mg/dL (65-110); Magnesium 2.4 mg/dL (1.6-2.3); Potassium 3.9 mmol/L (3.4-5.0); Sodium 137 mmol/L (137-145); Total Protein 8.2 g/dL (6.3-8.2)
--- NOTE | 2025-09-29 15:10 | P.DS_ITS ---
DS: Admitting Diagnosis Discharge Date 09/29/2025 Admitting Diagnosis SVT DS: Discharge Diagnosis Discharge Diagnosis (1) SVT (supraventricular tachycardia): Code(s): I47.10 - Supraventricular tachycardia, unspecified Status: Acute Assessment and Plan: Please refer to hospital course for brief summary -patient's heart rate was initially in the 220. The patient has a walked that he monitors his heart rate. At the time of the rapid heart rate the patient was feeling dizzy and had chest pain that radiated to his right neck. Once his heart rate came down he was symptom-free. -he stated that he is had an echo in the past as well as 2 cardiac caths. -patient is now sinus rhythm with heart rate in the 70s. -the patient may benefit from a Holter monitor. -the patient denies any [id number] medication or any new medications. -his thyroid level was within normal limits. -cardiology has been consulted further recommendations would greatly be appreciated. -CTA negative for pulmonary embolism (2) Elevated troponin: Code(s): R79.89 - Other specified abnormal findings of blood chemistry Status: Acute Assessment and Plan: -troponins were 0.012, 0.065, 0.125 respectively. I did order a another troponin and if that is elevated out continue to trend. -the patient did complain of having chest pain as well as right neck pain. However the patient stated that he has had 2 cardiac caths and has no history of coronary artery disease. -this could be demand ischemia from the rapid heart rate. -cardiology has been consulted for further recommendations. -the patient does not always take his aspirin daily. However will continue with his daily aspirin. -continue with rosuvastatin (3) Hyperlipidemia: Qualifiers: Hyperlipidemia type: unspecified Qualified Code(s): E78.5 - Hyperlipi demia, unspecified Code(s): E78.5 - Hyperlipidemia, unspecified Status: Acute Assessment and Plan: -continue with rosuvastatin (4) Essential hypertension: Code(s): I10 - Essential (primary) hypertension Status: Acute Assessment and Plan: -continue with telmisartan if blood pressure allows. Current blood pressure 137/78. (5) Pulmonary hypertension: Code(s): I27.20 - Pulmonary hypertension, unspecified Status: Inactive Assessment and Plan: -the patient stated that he has had echos in the past and denies he has pulmonary hypertension. However the patient is on tadalfil and therefore will continue with this.. -repeat echo if not performed in the last 6 months. (6) Type 2 diabetes mellitus with hyperglycemia: Code(s): E11.65 - Type 2 diabetes mellitus with hyperglycemia Status: Acute Assessment and Plan: -the patient has a continues glucose monitor. He stated that his last A1c was 6.2. However the labs from here on 03/26/2025 showing a hemoglobin A1c of 5.8. -sliding scale insulin with a.c. HS. -continue with large in a pharmacist to reduce home insulin basal dose by 20% daily. -continue with Jardiance (7) Hypothyroidism (acquired): Code(s): E03.9 - Hypothyroidism, unspecified Status: Acute Assessment and Plan: -the patient has a history of Graves disease -he has had of thyroidectomy -his TSH is 0.794 which is normal. -continue with levothyroxine (8) BOGDAN on CPAP: Code(s): G47.33 - Obstructive sleep apnea (adult) (pediatric); Z99.89 - Dependence on other enabling machines and devices Status: Acute Assessment and Plan: -continue to titrate CPAP as per home settings. DS: Summary Hospital Course Hospital Course: 65-year-old male patient who was at work today and started to feel dizzy. He also noticed that his heart rate was beating over 200. He does have a watch that keeps track of his heart rate he stated that it was in the 220s. Patient arrived to the emergency room for private transportation and was found to have an elevated heart rate. He was immediately brought back into a emergency room 10. He stated that he did not take any [id number] medication or any new medication. He denied taking any new medication. He denied having any irregular heart rate in the past. However after his heart monitor was placed the patient was noted to be sinus tachycardia with a rate of 110. Patient stated during the fast heart rate he had jaw pain which resolved once his heart rate started to go down. The patient stated that he has had echoes and 2 cardiac caths and denies any coronary artery disease. His blood glucose was noted to be 142 per blood work. His initial cardiac enzyme was negative with a 3 hour troponin of 0.065 and a 6 hour troponin of 0.125. First EKG was read as supraventricular tachycardia heart rate 213. Repeat EKG was read as sinus tac hycardia. Portable chest x-ray demonstrating no focal acute process. The patient was given aspirin in the emergency room. Cardiology has been consulted. Cardiology agrees to discharge the patient and advised to collect Holter monitor from the office tomorrow. Patient echocardiogram is pending. Patient needs to follow-up with PCP for echocardiogram results On the day of discharge, the patient was seen and examined. Vital signs were stable. Physical exam were stable and labs were reviewed at length. Discharge instructions, medications, and follow-up appointments were discussed with the patient at length and all day questions were answered. ER warnings were given. Status at Discharge Cognitive/behavioral status at discharge: Stable Time Spent with Patient Time attestation: Total time spent providing and/or coordinating discharge services: 45 minutes Exam Narrative: APPEARANCE: Well appearing, no pain, no distress, well-nourished. HEAD: normocephalic, atraumatic. EYES: PERRLA/EOMI, conjunctivae clear. NOSE: Normal no drainage EARS:TMS clear with good light reflex. THROAT: Pharynx clear, no exudate. NECK: Supple. No adenopathy, no masses. RESPIRATORY: Airway patent, respirations nonlabored. Clear to auscultation bilaterally, no rales, rhonchi, wheezing. CARDIOVASCULAR: Regular rate and rhythm without murmurs rubs or gallops. ABDOMINAL: Soft, nontender, nondistended, normal bowel sounds MUSCULOSKELETAL: Moves all extremities. Strength/ROM intact, No edema, No calf tenderness. NEURO: Alert. Cranial nerves II through XII intact. Good gait. Good coordination SKIN: Warm, dry. Normal Color Const: General: cooperative, healthy appearing, comfortable, no acute distress, well developed, awake, Physically active, average body habitus and well nourished Nutritional Appearance: average body habitus and well nourished Orientation/consciousness: oriented to person, oriented to place, oriented to time and patient oriented x3 Limitations: no limitations HENMT: Head: normal to inspection and abrasion Ears: hearing grossly normal bilaterally Mouth: Yes moist mucous membranes Eyes: General: appearance normal, both eyes and all related structures Alignment and Position: alignment normal Periorbital: periorbital findings normal Eyelids: eyelids normal Conjunctivae: conjunctivae normal EOM: EOMs intact bilaterally Neck: Neck: normal visual inspection, full ROM, supple and no JVD Thyroid: thyroid normal Carotids: no bruits Chest: Chest palpation & inspection: normal inspection of the chest Resp: Effort & Inspection: normal respiratory effort Auscultation: clear to auscultation bilaterally Percussion: percussion normal Cardio: Palpation: normal PMI Rate: regular rate Rhythm: regular rhythm Heart sounds: S1 normal heart sound present, S2 normal heart sound present, no gallops, no murmurs and no rubs Peripheral pulses: Peripheral pulses 2+ throu ghout GI: Inspection: normal to inspection Auscultation: normal bowel sounds Rectal Exam: deferred Skin: General skin exam: normal color and no erythema Lesions: no lesions Rashes: no rashes Trauma: no lacerations or abrasions Wounds: no wounds Hair: normal Nails: normal Neuro: General: oriented to person, oriented to place, oriented to time and patient oriented x3 Cranial nerves: Yes Normal hearing present Cognition (Neuro): normal cognition Speech: normal speech Motor exam (neuro): 5/5 motor strength present throughout Sensory Exam: normal sensation Extrem: General: normal to inspection and no pedal edema Right upper extremity: normal to inspection and shoulder/upper arm Left upper extremity: normal to inspection and shoulder/upper arm Right lower extremity: normal to inspection Left lower extremity: normal to inspection Psych: Appearance: grossly normal Mental Status: mental status grossly normal Speech and movement: Normal speech and movement present Affect: normal affect Attitude: cooperative Thought process: Normal thought process present Insight: Good insight present (Psych) Judgement: Good judgement present (Psych) DS: Data Data Completed and Pending Labs on day of discharge: Labs from last 24 hours 09/29/25 09/29/25 09/29/25 11:08 09:11 06:39 WBC RBC Hgb Hct MCV MCH MCHC RDW Plt Count MPV Sodium 137 Potassium 3.9 Chloride 104 Carbon Dioxide 23 Anion Gap 10 BUN 14 D Creatinine 0.67 L Estim Creat Clear Calc 84 Estimated GFR > 60 Glucose 162 H POC Capillary Glucose 69 91 Hemoglobin A1c Calcium 8.8 Magnesium 2.4 H Total Bilirubin 0.7 AST 35 ALT 28 Alkaline Phosphatase 60 Troponin I Total Protein 8.2 Albumin 4.6 Urine Opiates Screen Urine Methadone Screen Ur Barbiturates Screen Ur Phencyclidine Scrn Ur Amphetamine Screen U Benzodiazepines Scrn Urine Cocaine Screen U Cannabinoids Screen 09/29/25 09/28/25 09/28/25 01:34 23:07 15:50 WBC 5.9 RBC 4.42 L Hgb 13.9 L Hct 40.5 L MCV 91.6 MCH 31.4 MCHC 34.3 RDW 11.9 Plt Count 175 MPV 8.6 Sodium Potassium Chloride Carbon Dioxide Anion Gap BUN Creatinine Estim Creat Clear Calc Estimated GFR Glucose POC Capillary Glucose 100 Hemoglobin A1c Calcium Magnesium Total Bilirubin AST ALT Alkaline Phosphatase Troponin I 0.056 H* 0.125 H* D Total Protein Albumin Urine Opiates Screen Negative Urine Methadone Screen Negative Ur Barbiturates Screen Negative Ur Phencyclidine Scrn Negative Ur Amphetamine Screen Negative U Benzodiazepines Scrn Negative Urine Cocaine Screen Negative U Cannabinoids Screen Negative 09/28/25 10:08 WBC RBC Hgb Hct MCV MCH MCHC RDW Plt Count MPV Sodium Potassium Chloride Carbon Dioxide Anion Gap BUN Creatinine Estim Creat Clear Calc Estimated GFR Glucose POC Capillary Glucose Hemoglobin A1c 5.7 Calcium Magnesium Total Bilirubin AST ALT Alkaline Phosphatase Troponin I Total Protein Albumin Urine Opiates Screen Urine Methadone Screen Ur Barbiturates Screen Ur Phencyclidine Scrn Ur Amphetamine Screen U Benzodiazepines Scrn Urine Cocaine Screen U Cannabinoids Screen Discharge Plan Discharge Attending physician on discharge: Clarence Agosto Consulting providers: Nathaniel Escalante Discharging Clinician: Clarence Agosot Anticipated Discharge Date/Time: 09/29/25 15:05 Patient Disposition: Home Activity: as tolerated Diet: as tolerated Discharge Instructions: Please return to ED if you have palpitation,chest pain or any other concerning symptoms. 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 aspirin 81 mg capsule 81 mg PO DAILY multivitamin [Daily Multi-Vitamin] Tablet 1 tablet PO DAILY vitamin B complex [B Complex-Vitamin B12] Tablet 1 tablet PO DAILY cholecalciferol (vitamin D3) 25 mcg (1,000 unit) tablet 25 mcg PO DAILY calcium carbonate [Calcium 600] 600 mg calcium (1,500 mg) tablet 600 mg PO DAILY modafinil 200 mg tablet 200 mg PO QAM PRN (Reason: extreme sleepiness) insulin aspart U-100 [Novolog FlexPen U-100 Insulin] 100 unit/mL (3 mL) insulin pen See Rx Instructions subcut TID PRN (Reason: hyperglycemia) Patient Comments: takes a couple units with high carb meals Rx Instructions: 3-5 units before meals subcutaneously three times a day PRN; eszopiclone 3 mg tablet 3 mg PO QHS 90 Days Qty: 90 1RF gabapentin 300 mg capsule 300 mg PO QHS Qty: 90 1RF meloxicam 15 mg tablet 15 mg PO DAILY Qty: 90 1RF levothyroxine 137 mcg capsule 137 mcg PO DAILY 90 Days Qty: 90 3RF (DME) pen needle, diabetic 32 gauge x 5/32 needle See Rx Instructions .ROUTE .MEDSUPPLY Qty: 400 3RF Rx Instructions: use four times daily Jardiance 25 mg tablet 25 mg PO QAM 90 Days Qty: 90 3RF tadalafil 20 mg tablet 40 mg PO DAILY 90 Days Qty: 180 1RF Rx Instructions: Take 2 once a day for pulmonary hypertension; generic for Adcirca. insulin glargine U-300 conc [Toujeo SoloStar U-300 Insulin] 300 unit/mL (1.5 mL) insulin pen 12 unit subcut DAILY 90 Days Qty: 4.5 1RF (DME) Dexcom G7 Sensor Device MISCELLANEOUS Qty: 9 1RF Rx Instructions: change every 10 days telmisartan 40 mg tablet 40 mg PO DAILY Qty: 90 1RF rosuvastatin 20 mg tablet 20 mg PO DAILY Qty: 90 1RF Discontinued omeprazole 20 mg capsule,delayed release(DR/EC) 20 mg PO DAILY Other Ambulatory Orders: CA cardiac event monitor (Routine) Timeframe: 1 Month Location: Determined by Patient Ordered By: Constanza Hu Date of admission: 09/28/25 16:46 Primary Care Provider: Melani Jara Admitting Provider: Aden Santana Attending physician on admission: Aden Santana Condition: Stable
== END 2025-09-29 17:09 | disposition home or self-care (01) ==
LOC: ANHED 10:31 → ANHIMU 18:45
PROVIDERS: Nurse Practitioner; Admitting Provider Student in an Organized Health Care Education/Training Program; Emergency Provider Emergency Medicine; PCP Nurse Practitioner Family; Visit Provider General Practice
DX: I47.10 Supraventricular tachycardia, unspecified (principal); R79.89 Other specified abnormal findings of blood chemistry; I27.20 Pulmonary hypertension, unspecified; E11.65 Type 2 diabetes mellitus with hyperglycemia; I10 Essential (primary) hypertension; I34.0 Nonrheumatic mitral (valve) insufficiency; I07.1 Rheumatic tricuspid insufficiency; M35.00 Sjogren syndrome, unspecified; K21.9 Gastro-esophageal reflux disease without esophagitis; G47.33 Obstructive sleep apnea (adult) (pediatric); Z99.89 Dependence on other enabling machines and devices; G93.32 Myalgic encephalomyelitis/chronic fatigue syndrome; N52.1 Erectile dysfunction due to diseases classified elsewhere; E78.5 Hyperlipidemia, unspecified; E03.9 Hypothyroidism, unspecified; G57.10 Meralgia paresthetica, unspecified lower limb; M85.80 Other specified disorders of bone density and structure, unspecified site; M17.0 Bilateral primary osteoarthritis of knee; Z90.09 Acquired absence of other part of head and neck; Z79.4 Long term (current) use of insulin; Z79.85 Long-term (current) use of injectable non-insulin antidiabetic drugs; Z79.84 Long term (current) use of oral hypoglycemic drugs; Z79.82 Long term (current) use of aspirin; Z79.1 Long term (current) use of non-steroidal anti-inflammatories (NSAID); Z86.39 Personal history of other endocrine, nutritional and metabolic disease; Z82.61 Family history of arthritis; Z82.49 Family history of ischemic heart disease and other diseases of the circulatory system; Z81.8 Family history of other mental and behavioral disorders; Z83.3 Family history of diabetes mellitus; Z82.3 Family history of stroke
CPT/HCPCS: 36415; 71045; 71275; 80053; 80307; 82948; 83036; 83690; 83735; 84443; 84484; 85025; 85027; 85610; 85730; 93005; 93306; 96372; 99285; A9270; G0378; J1650; Q9967